=== PATIENT | male | born 1945 | race Caucasian/White ===

== ENCOUNTER → 2019-05-19 11:10 | Outpatient (CLI) | payer MEDICARE, SELFPAY ==
--- NOTE | ~2019-05-19 | MR_ITS ---
EXAMINATION: MR lumbar spine wo con DATE: 05/19/2019 11:46 INDICATION: Lumbar radiculopathy. TECHNIQUE: Magnetic resonance imaging (MRI) of the lumbar spine was performed without intravenous con trast. Sequences included sagittal T2-weighted FSE, sagittal T2-weighted FS FSE, sagittal T1-weighted FSE, and axial T2-weighted FSE. COMPARISON: Lumbar spine radiographs 01/26/2016 FINDINGS: There is 8 degrees levocurvature of lumbar spine. There is 3 mm anterolisthesis of L4 on L5 . There is a chronic burst fracture of T12 with greater than 4/5 loss of height centrally, focal kyph osis, and retropulsion of bone 2 mm into central spinal canal. There is mildly decreased disc height at L1-L2 and moderately decreased disc height at L4-L5 and L5-S1. The distal spinal cord signal inten sity is normal. The conus medullaris is at T12-L1. The following disc levels are specifically discuss ed: L1-L2: The disc is bulging. There is no facet joint osteoarthritis. There is mild bilateral neural fo raminal stenosis. There is no central canal stenosis. L2-L3: The disc is bulging. There is mild right and moderate left facet joint osteoarthritis. There i s mild bilateral neural foraminal stenosis. There is no central canal stenosis. L3-L4: The disc does not extend beyond the endplate margin. There is mild bilateral facet joint osteo arthritis. There is no neural foraminal stenosis. There is no central canal stenosis. L4-L5: The disc is bulging and has an annular fissure. There is severe bilateral facet joint osteoart hritis. There is moderate bilateral neural foraminal stenosis. There is moderate central canal stenos is with posterior decompression. L5-S1: The disc is bulging and has an annular fissure. There is severe bilateral facet joint osteoart hritis. There is moderate right and mild left neural foraminal stenosis. There is moderate central ca nal stenosis with posterior decompression. IMPRESSION: 1. Moderate lumbar spondylosis. Reviewed, dictated and finalized at location A. REPLACEMENT ORDERER
== END ==
PROVIDERS: Visit Provider Nurse Practitioner Family
DX: M47.26 Other spondylosis with radiculopathy, lumbar region (principal)
CPT/HCPCS: 72148

== ENCOUNTER 2019-08-17 15:29 | Outpatient (CLI) | payer MEDICARE, SELFPAY ==
--- NOTE | ~2019-08-17 | XR_ITS ---
XR shoulder RT min 2V DATE: 08/17/2019 15:53 INDICATION: Primary osteoarthritis of right shoulder. Right shoulder pain. TECHNIQUE: 4 views COMPARISON: 06/28/2008 right shoulder FINDINGS: There is degenerative change at the right acromioclavicular joint including spurring and richard int space narrowing. There is mild osteoarthritis at the right glenohumeral joint including mild spur ring of the right humeral head. No fracture or dislocation, periosteal reaction or bone destruction. No abnormal right shoulder soft tissue calcification. IMPRESSION: Degenerative change at right acromion clavicular joint Mild right glenohumeral osteoarthritis Reviewed, dictated and finalized at location A.
== END 2019-08-17 15:30 | disposition home or self-care (01) ==
PROVIDERS: PCP Internal Medicine; Visit Provider Internal Medicine
DX: M19.011 Primary osteoarthritis, right shoulder (principal)
CPT/HCPCS: 73030

== ENCOUNTER 2019-09-07 09:41 | Outpatient (CLI) | payer MEDICARE, SELFPAY ==
--- NOTE | 2019-09-07 10:22 | ECG_ITS ---
Measurements Intervals [place] Rate: 79 P: 20 UT: 194 QRS: 27 QRSD: 107 T: 11 QT: 412 QTc: 474 Interpretive Statements SINUS RHYTHM FREQUENT VENTRICULAR PREMATURE COMPLEXES BORDERLINE ST-T WAVE ABNORMALITY- INFERIOR LEADS ABNORMAL ECG Electronically Signed On 09-07-2019 10:48:01 CDT by Parviz Fox D.O.
== END 2019-09-07 09:42 | disposition home or self-care (01) ==
LOC: ANHLAB 09:44 → ANHCARD 09:46
PROVIDERS: PCP Internal Medicine; Visit Provider Internal Medicine
DX: I25.10 Atherosclerotic heart disease of native coronary artery without angina pectoris (principal); R94.31 Abnormal electrocardiogram [ECG] [EKG]
CPT/HCPCS: 93005

== ENCOUNTER 2019-11-30 13:55 | Emergency (ER) | payer MEDICARE, SELFPAY ==
[2019-11-30] VITALS (17 sets, daily range): BP systolic 113–134; BP diastolic 63–82; PULSE 58–77; RESP 16–28; TEMP 36.5; O2SAT 90–97
--- NOTE | ~2019-11-30 | XR_ITS ---
EXAMINATION: XR chest 2V DATE: 11/30/2019 14:34 INDICATION: Shortness of breath. TECHNIQUE: Frontal and lateral views of the chest were obtained. COMPARISON: Chest 2 views 03/25/2013, chest CT 11/16/2018 FINDINGS: The lung volumes are normal. A calcified right lung nodule is consistent with old granuloma tous disease. There are chronic mild peripheral airspace opacities in the mid and lower lung zones. N o pleural effusion or pneumothorax. The heart size is normal. There is a chronic burst fracture of T1 2. IMPRESSION: 1. Mild chronic lung disease. Reviewed, dictated and finalized at location A.
--- NOTE | ~2019-11-30 | CT_ITS ---
EXAMINATION: CTA chest PE protocol DATE: 11/30/2019 15:56 INDICATION: Pulmonary embolism, shortness of breath and chest pain TECHNIQUE: Computed tomography (CT) pulmonary angiogram of the chest was performed with 100 mL Omnipa que-350 intravenous contrast. Additional 3D reconstructions utilizing coronal maximum intensity proje ction (MIP) were performed. Automated exposure control and iterative reconstruction technique were em ployed. The dose-length product was 799.40 mGy-cm. COMPARISON: None FINDINGS: Excellent contrast opacification of the pulmonary arteries. There is mild streak artifact from dense contrast in the superior vena cava and right atrium. Minimal scattered respiratory motion artifact wh ich does not significantly limit evaluation. No pulmonary embolism. Larger calcified nodule in the ri ght lower lobe consistent with old granulomatous disease. Multiple additional scattered <4 mm pulmona ry nodules, the majority of the upper lobes. Peripheral groundglass opacities and irregular septal li ne thickening, along the dependent aspect of the bilateral upper and lower lobes. There are some nonc alcified pleural plaques at the posterior aspect of the left lower lobe. No pleural effusion. Heart s ize is normal. Atherosclerotic coronary artery calcification. There is a small amount of gas at the r ight atrial appendage, right pulmonary outflow tract and at the nondependent sinus of Valsalva at the aortic root likely related to peripheral IV placement. No pathologically enlarged thoracic lymphaden opathy. Fusiform ascending thoracic aortic aneurysm measuring up to 4.5 cm in maximal diameter. No di ssection. Diffuse hepatic steatosis. Chronic T12 burst fracture with 80% central vertebral body heigh t loss and minimal retropulsion. IMPRESSION: 1. No pulmonary embolism. 2. Peripheral reticular and mild groundglass opacities in the dependent aspect of the lungs. Differen tial includes mild pulmonary edema, atelectasis, nonspecific interstitial pneumonia (NSIP) pattern ch ronic interstitial lung disease or asbestosis in the appropriate clinical setting. 3. Multiple <4 mm bilateral pulmonary nodules most likely infectious/inflammatory in etiology. If the patient is low risk for lung cancer, no follow-up is needed. If the patient is high risk (i.e., hist ory of smoking or asbestos or significant radiation exposure), optional follow-up low-dose noncontras t chest CT could be considered at 12 months. 4. 4.5 cm ascending thoracic aortic aneurysm. Reviewed, dictated and finalized at location B. IMPRESSION: 1. No pulmonary embolism. 2. Peripheral reticular and mild groundglass opacities in the dependent aspect of the lungs. Differential includes mild pulmonary edema, atelectasis, nonspeci fic interstitial pneumonia (NSIP) pattern chronic interstitial lung disease or asbestosis in the appropriate clinical setting. 3. Multiple <4 mm bilateral pulmonary nodules most likely infectious/inflammato ry in etiology. If the patient is low risk for lung cancer, no follow-up is nee ded. If the patient is high risk (i.e., history of smoking or asbestos or signi ficant radiation exposure), optional follow-up low-dose noncontrast chest CT co uld be considered at 12 months. 4. 4.5 cm ascending thoracic aortic aneurysm.
--- NOTE | 2019-11-30 14:14 | ECG_ITS ---
Measurements Intervals [place] Rate: 60 P: 30 DE: 200 QRS: 19 QRSD: 109 T: 9 QT: 429 QTc: 429 Interpretive Statements SINUS RHYTHM VENTRICULAR PREMATURE COMPLEXES BORDERLINE ECG Electronically Signed On 11-30-2019 15:16:00 CDT by Parviz Fox D.O.
[2019-11-30 14:36] LABS: Basophils Percent Auto 0.4 % (0.2-1.2); Eosinophils Absolute Auto 0.1 K/mm3 (0-0.3); Eosinophils Percent Auto 1.1 % (0-4.4); Hematocrit 39.9 % (42.0-52.0); Hemoglobin 13.7 g/dL (14.0-18.0); Immature Granulocyte Absolute 0.04 K/mm3 (0.00-0.031); Immature Granulocyte Percent A 0.7 % (0-0.5); Lymphocytes Absolute Auto 2.28 K/mm3 (0.9-3.2); Lymphocytes Percent Auto 40.3 % (18.3-44.2); Mean Corpuscular HGB Conc 34.3 g/dl (32-36); Mean Corpuscular Hemoglobin 30.6 pg (26-34); Mean Corpuscular Volume 89.3 fl (80-100); Mean Platelet Volume 10.1 fl (7.4-10.4); Monocytes Absolute Auto 0.5 K/mm3 (0.1-0.6); Neutrophils Absolute Auto 2.8 K/mm3 (1.3-6.7); Neutrophils Percent Auto 48.5 % (45.5-73.1); Platelet Count Result 206 k/mm3 (150-375); Red Blood Count 4.47 M/mm3 (4.6-6.20); Red Cell Distribution Width 12.7 % (11.5-14.5); White Blood Count 5.7 K/mm3 (4.5-10.0)
[2019-11-30 14:45] LABS: Anion Gap 8 mmol/L (8-16); Blood Urea Nitrogen 22 mg/dL (9-20); Calcium 9.1 mg/dL (8.4-10.2); Carbon Dioxide 26 mmol/L (22-30); Chloride 104 mmol/L (98-107); Estimated CRCL calculation 68 ml/min; Estimated Glomerular Filt Rate > 60; Glucose 83 mg/dL (75-110); Sodium 138 mmol/L (137-145)
--- NOTE | 2019-11-30 14:45 | ED.GENADULT ---
HPI - General Adult General Chief complaint: Shortness of Breath/Dyspnea Stated complaint: sob/sent by pmd Time Seen by Provider: 11/30/19 14:43 Source: patient Mode of arrival: ambulatory Limitations: no limitations History of Present Illness HPI narrative: 74 years old white female history of COPD emphysema and asthma been having shortness of breath for years, is getting worse over the last 3 months. Patient was started on RINVOQ medication for rheumatoid arthritis for the last 8 to 12 months. 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 And the doctor asked the patient if he had shortness of breath or not .beCause the medication RINVOQ can cause pulmonary embolism. And was referred to the emergency room without. Patient denies any fever, chills, nausea, vomiting, chest pain, coughing, swelling of the legs or trouble sleeping Related Data Home Medications Medication Instructions Recorded Confirmed azelastine 1 spray INTRANASAL Q12H 01/14/19 08/17/19 aripiprazole 2 mg tablet 2 mg PO DAILY 08/24/19 08/24/19 Allergies Allergy/AdvReac Type Severity Reaction Status Date / Time No Known Allergies Allergy Verified 11/30/19 14:12 Review of Systems Review of Systems: Narrative: CONSTITUTIONAL: Denies fever, chills, or sweats. EYES: Denies visual changes, redness, or discharge. ENT: Denies rhinorrhea, congestion, sore throat, or otalgia. CARDIOVASCULAR: Denies chest pain, palpitations, or edema. RESPIRATORY: Denies cough or dyspnea. GASTROINTESTINAL: Denies abdominal pain, nausea, vomiting, or diarrhea. GENITOURINARY: Denies dysuria or hematuria. SKIN: Denies rash or itching. MUSCULOSKELETAL: Denies back pain, joint pain, or myalgia. NEUROLOGIC: Denies headache, numbness, or weakness. PSYCHIATRIC: Denies anxiety or depression. [facility] Past Medical History Medical History Abnormal stress test Acromioclavicular arthrosis Anxiety disorder, unspecified Blood in stool Body mass index (BMI) 35.0-35.9, adult (12/17/18) CAD in [place] artery Chest pain in adult Counseling on health promotion and disease prevention Dependence on other enabling machines and devices Depression Detached retina Dietary counseling and surveillance (08/25/15) Dyslipidemia Encounter for medication management Encounter for other preprocedural examination Encounter for screening for other viral diseases Gastro-esophageal reflux disease without esophagitis Generalized osteoarthritis of multiple sites Hernia Hx of prostatic malignancy Hypertriglyceridemia Irregular heart rhythm Left sided sciatica Low back pain without sciatica Lumbar radiculitis Malignant neoplasm involving prostate by direct extension from urinary bladder Obesity (BMI 35.0-39.9 without comorbidity) Odynophagia Osteoarthritis involving multiple joints on both sides of body Osteopenia Other fatigue Other hyperlipidemia Pain in unspecified limb Pain of both sacroiliac joints Prostate cancer Pure hypercholesterolemia, unspecified Rash and other nonspecific skin eruption Rheumatoid arthritis of multiple sites without rheumatoid factor Rheumatoid arthritis of unspecified site with involvement of other organs and systems Right hip pain Skin tag SOB (shortness of breath) Tinea corporis Surgical History Surgical History H/O radical prostatectomy History of arthroscopy of left shoulder History of bilateral knee replacement Family History Family History Father Family history of obesity Family history of throat cancer Patient's father is Family history of Alzheimer's disease Mother Asthma Patient's mother is Sibling Diabetes mellitus Family history of sleep apnea Family history of diabetes mellitus in first degree relative Family history of lung cancer P
[2019-11-30 14:59] LABS: Alveolar/Arterial O2 Gradient 34.5 mmHg; Base Excess ABG 0.3 mEq/l (+/-2.0); Fractional Inspired Oxygen 21 %; HCO3 ABG 25.2 mEq/l (22.0-26.0); Oxygen Content ABG 18.1 %vol (16.0-22.0); Oxygen Saturation ABG 92.8 % (95.0-100.0); Oxyhemoglobin 91.5 % THb (90.0-100.0); PCO2 ABG 41.7 mmHg (35.0-45.0); PO2 ABG 65.3 mmHg (80.0-100.0); PO2 FiO2 Ratio Arterial Blood 3.11 %; Total Hemoglobin 14.1 g/dL (12.0-18.0); pH ABG 7.399 (7.350-7.450)
[2019-11-30 15:00] LABS: Device ROOM AIR; Modified Allen's Test Pass; Site Drawn RIGHT RADIAL
[2019-11-30 15:11] LABS: NT Pro B Type Natriuretic Pept 112 PG/ML (5-100); Troponin I < 0.012 ng/mL (0.000-0.034)
[2019-11-30 15:12] LABS: D Dimer 0.27 ug/mL (<0.48)
== END 2019-11-30 17:33 | disposition home or self-care (01) ==
PROVIDERS: Emergency Provider Emergency Medicine; PCP Internal Medicine
DX: I71.2 Thoracic aortic aneurysm, without rupture (principal); R91.8 Other nonspecific abnormal finding of lung field; J43.9 Emphysema, unspecified; J45.909 Unspecified asthma, uncomplicated; I49.3 Ventricular premature depolarization
CPT/HCPCS: 36415; 36600; 71046; 71275; 80048; 82805; 83880; 84484; 85025; 85380; 93005; 99284; Q9967

== ENCOUNTER 2020-02-11 07:21 | Outpatient (CLI) | payer MEDICARE, SELFPAY ==
--- NOTE | 2020-02-11 07:38 | ECHO_ITS ---
Patient Info Name: Mikael Hall Age: 74 years : 1945 Gender: Male Ht: 71 in Wt: 268 lbs BSA: 2.51 m2 HR: 83 bpm BP: 155 / 82 mmHg Technical Quality: Fair Exam Date: 02/11/2020 7:48 AM Exam Location: [facility] Pulmonary Patient Status: Outpatient Admit Date: 02/11/2020 Staff Ordering Physician: Afsaneh Ventura MD [employer] Operator: Flavia Fontenot RDCS Attending Provider: Afsaneh Ventura MD Referring Physician: Lorenzo FIGUEROA; Exam Type: CA echo doppler color flow Study Info Indications R06.02 - Shortness of breath Complete two-dimensional, color flow and Doppler transthoracic echocardiogram is performed. Summary 1. Complete two-dimensional, color flow and Doppler transthoracic echocardiogram is performed. 2. Left ventricular chamber dimension is normal. 3. Left ventricular systolic function is normal, estimated at 55-60%. 4. There is mildly increased left ventricular wall thickness. 5. The left ventricular diastolic function is grade I diastolic dysfunction. 6. E/e' 8 is minimally elevated. 7. Global longitudinal strain is abnormal at -14.2%. 8. The aortic root size at the sinus of Valsalva is mildly dilated at 4.3 cm. Left Ventricle E/e' 8 is minimally elevated. Global longitudinal strain is abnormal at -14.2%. Left ventricular chamber dimension is normal. Left ventricular systolic function is normal, estimated at 55-60%. There is mildly increased left ventricular wall thickness. The left ventricular diastolic function is grade I diastolic dysfunction. Right Ventricle Right ventricular chamber dimension is normal. Right ventricular systolic function is normal. Left Atria Left atrial chamber dimension is normal. Right Atria Right atrial chamber dimension is normal. Aortic Valve The aortic valve is trileaflet. There is no aortic valve stenosis. There is no aortic valve regurgitation. Pulmonic Valve There is no pulmonic regurgitation. Mitral Valve There is no mitral valve regurgitation. Tricuspid Valve There is no tricuspid valve regurgitation. Pericardium/Pleural There is no pericardial effusion. Inferior Vena Cava Normal inferior vena cava with >50% collapse upon inspiration consistent with normal right atrial pressure, 5 mmHg. Aorta The aortic root size at the sinus of Valsalva is mildly dilated at 4.3 cm. Left Ventricular Outflow Tract Name Value Normal LVOT 2D LVOT Diameter 2.0 cm LVOT Doppler LVOT Peak Gradient 4 mmHg LVOT Mean Gradient 3 mmHg LVOT VTI 22 cm LVOT VTI/AV VTI Ratio 1.1 LVOT Stroke Volume 71 ml LVOT CO 5.1 l/min LVOT CI 2.0 l/min/m2 Pulmonic Valve Name Value Normal RVOT Doppler
--- NOTE | 2020-02-14 17:18 | WPDPFTINT ---
PFT Interpretation PFT Interpretation: DOS: 02/11/2020 REQUESTING: Dr Ventura REASON FOR TESTING: Shortness of breath, COPD PULMONARY FUNCTION TESTS The patient restarted Trelegy a week prior to these tests. He c/o clear angiitis which was present before restarting his Trelegy. Spirometry: FEV1 is 84%, 2.41 L, normal. FVC is 82% normal. The FEV1/FVC ratio is 67%, normal for age. ELI56-72 is 47% severely decreased. After bronchodilator therapy the FEF 25-75 increases by 24% which is significant. Lung volumes: TLC 100%, normal. Residual volume is 111% normal. RV/TLC is increased 45% consistent with air trapping. There is increased airway resistance, 300% predicted. Diffusion: DLCO is 71% mildly decreased. Flow volume loop: Scooping of the expiratory limb is mild. IMPRESSION: Normal spirometry with significant decrease in the small airways flows and a robust response in the small airways flows after bronchodilator administration. New mild air trapping which is consistent with an obstructive process. Increased airway resistance. There has been a significant drop in the DLCO and although it is only 71% which is mildly abnormal, just 2 years ago was 94%. Clinical correlation is recommended. Compared to a prior study 11/07/2017, FEV1 is lower, 84% now compared to 97%, still normal. The ROP17-11% was minimally decreased 79% in 2018, now much lower at 47% with a robust response to bronchodilator. TLC was similar, however mild air trapping is new. Airway resistance was elevated. DLCO was 94% now 71%, significantly decreased. Afsaneh Ventura MD
== END 2020-02-11 07:22 | disposition home or self-care (01) ==
PROVIDERS: PCP Nurse Practitioner Family; Visit Provider Internal Medicine Critical Care Medicine
DX: R06.02 Shortness of breath (principal); J44.9 Chronic obstructive pulmonary disease, unspecified; I51.9 Heart disease, unspecified; I77.810 Thoracic aortic ectasia
CPT/HCPCS: 93306; 94060; 94726; 94729

== ENCOUNTER 2020-06-19 06:56 | Outpatient (CLI) | payer MEDICARE, SELFPAY ==
--- NOTE | ~2020-06-19 | CT_ITS ---
EXAMINATION: CTA chest DATE: 06/19/2020 08:04 CDT INDICATION: Follow-up thoracic aortic aneurysm TECHNIQUE: Computed tomographic angiography (CTA) of the chest was performed with 100 mL Omnipaque-35 0 intravenous contrast. The dose-length product was 924.28 mGy-cm. Maximum intensity projection 3D-re constructions of the aorta and other arteries were constructed by the technologist on a separate work station. COMPARISON: CT dated 11/30/2019. FINDINGS: There is technically adequate contrast opacification of the pulmonary arteries without evid ence for pulmonary embolism. No evidence for thoracic aortic dissection. Stable ascending thoracic ao rtic aneurysm measuring 4.4 cm maximum dimension. No significant pleural or pericardial effusion. No thoracic lymphadenopathy. Shallow inspiration with crowding of the pulmonary vessels. Dependent atele ctasis. There are a few small 4 mm subpleural nodules which appear unchanged, although evaluation is somewhat limited due to hypoventilatory change. There is a chronic T12 burst fracture unchanged. IMPRESSION: 1. Stable ascending thoracic aortic aneurysm measuring 4.5 cm. 2: Stable bilateral pulmonary nodules measuring 4 mm or less, likely benign. Follow-up low dose CT ch est in 12 months recommended. Reviewed, dictated and finalized at location A. IMPRESSION: 1. Stable ascending thoracic aortic aneurysm measuring 4.5 cm. 2: Stable bilateral pulmonary nodules measuring 4 mm or less, likely benign. Fo llow-up low dose CT chest in 12 months recommended.
[2020-06-19 07:40] LABS: Estimated Glomerular Filt Rate 59
== END 2020-06-19 06:57 | disposition home or self-care (01) ==
PROVIDERS: PCP Nurse Practitioner Family; Visit Provider Internal Medicine Cardiovascular Disease
DX: I71.2 Thoracic aortic aneurysm, without rupture (principal); R91.8 Other nonspecific abnormal finding of lung field
CPT/HCPCS: 71275; Q9967

== ENCOUNTER 2020-08-10 17:37 | Emergency (ER) | payer MEDICARE, SELFPAY ==
--- NOTE | ~2020-08-10 | XR_ITS ---
EXAMINATION: XR chest 2V EXAM DATE: 08/10/2020 18:48 INDICATION: Shortness of breath, symptoms a month. TECHNIQUE: Frontal and lateral projections of the chest obtained and reviewed. Comparison is made to prior examination from 11/30/2019. FINDINGS: Several calcified lung granulomas. The lungs are otherwise clear. There are no pleural ef fusions. The cardiomediastinal silhouette is within normal limits. There is no pneumothorax suspect ed. The bones and soft tissues are unremarkable. IMPRESSION: No acute cardiopulmonary findings. Reviewed, dictated and finalized at location A.
--- NOTE | 2020-08-10 17:40 | ECG_ITS ---
Measurements Intervals [place] Rate: 68 P: 89 UT: 201 QRS: 15 QRSD: 106 T: 9 QT: 406 QTc: 434 Interpretive Statements SINUS RHYTHM FREQUENT VENTRICULAR PREMATURE COMPLEXES BORDERLINE AV CONDUCTION DELAY BORDERLINE T WAVE ABNORMALITY- INFERIOR LEADS BASELINE WANDER- V6 ABNORMAL ECG Electronically Signed On 08-10-2020 19:36:52 CDT by Parviz Fox D.O.
[2020-08-10 17:41] VITALS: BP 154/79; PULSE 69; RESP 18; TEMP 36.3; O2SAT 98
[2020-08-10 17:55] LABS: Basophils Percent Auto 0.2 % (0.2-1.2); Eosinophils Absolute Auto 0.1 K/mm3 (0-0.3); Eosinophils Percent Auto 2.8 % (0-4.4); Hematocrit 42.6 % (42.0-52.0); Hemoglobin 14.5 g/dL (14.0-18.0); Immature Granulocyte Absolute 0.05 K/mm3 (0.00-0.031); Immature Granulocyte Percent A 1.1 % (0-0.5); Lymphocytes Absolute Auto 2.36 K/mm3 (0.9-3.2); Lymphocytes Percent Auto 50.3 % (18.3-44.2); Mean Corpuscular Hemoglobin 31.3 pg (26-34); Mean Platelet Volume 9.8 fl (7.4-10.4); Monocytes Absolute Auto 0.6 K/mm3 (0.1-0.6); Monocytes Percent Auto 11.9 % (2.6-8.5); Neutrophils Absolute Auto 1.6 K/mm3 (1.3-6.7); Neutrophils Percent Auto 33.7 % (45.5-73.1); Platelet Count Result 213 k/mm3 (150-375); Red Blood Count 4.63 M/mm3 (4.6-6.20); Red Cell Distribution Width 12.6 % (11.5-14.5); White Blood Count 4.7 K/mm3 (4.5-10.0)
[2020-08-10 18:06] LABS: Anion Gap 4 mmol/L (8-16); Blood Urea Nitrogen 23 mg/dL (9-20); Calcium 9.1 mg/dL (8.4-10.2); Carbon Dioxide 31 mmol/L (22-30); Chloride 106 mmol/L (98-107); Estimated CRCL calculation 68 ml/min; Estimated Glomerular Filt Rate > 60; Glucose 91 mg/dL (75-110); Potassium 3.9 mmol/L (3.4-5.0); Sodium 141 mmol/L (137-145)
[2020-08-10 20:10] VITALS: BP 178/114; PULSE 60; RESP 19; O2SAT 97
[2020-08-10 20:13] VITALS: BP 178/114; PULSE 70; RESP 20; TEMP 36.8; O2SAT 100
[2020-08-10 20:29] VITALS: PULSE 62; RESP 20
[2020-08-10] MEDS: IPRATROPIUM BR 0.02% INH SOLN 0.5 MG/2.5 ML VIAL INHALATION (20:31)
[2020-08-10] MEDS: ALBUTEROL SULFATE NEB 2.5 MG/0.5 ML INH 5 MG INHALATION (20:31)
[2020-08-10 20:45] LABS: Alanine Aminotransferase 34 U/L (4-50); Albumin Level 4.3 g/dL (3.5-5.1); Alkaline Phosphatase 65 U/L (38-126); Aspartate Amino Transferase 38 U/L (17-59); Bilirubin,Total 0.3 mg/dL (0.2-1.3)
[2020-08-10] MEDS: methylPREDNISolone SOD SUCC 125 MG VIAL IV PUSH (20:45)
[2020-08-10 20:47] VITALS: BP 148/95; PULSE 63; RESP 20; O2SAT 95
[2020-08-10 20:58] LABS: Troponin I < 0.012 ng/mL (0.000-0.034)
[2020-08-10 21:05] LABS: NT Pro B Type Natriuretic Pept 87 pg/mL (5-100)
--- NOTE | 2020-08-10 21:10 | ED.GENADULT ---
HPI - General Adult General Chief complaint: Shortness of Breath/Dyspnea Stated complaint: CHRONIC SOB Time Seen by Provider: 08/10/20 20:13 History of Present Illness HPI narrative: Patient 75-year-old gentleman who presents the emergency department with chief complaint of shortness of breath. Patient reports he has history of COPD and was seen at urgent care and brought to the emergency department for further evaluation reported that they have felt like he probably needed some breathing treatments and some steroids. The patient states that he uses an albuterol inhaler at home reports that he had no fever no chills but does report that his shortness of breath has gotten worse over the last several days. Related Data Home Medications Medication Instructions Recorded Confirmed aripiprazole 2 mg tablet 2 mg PO DAILY 08/24/19 06/09/20 upadacitinib 15 mg tablet,extended 15 mg PO DAILY tablet 12/21/19 06/09/20 release 24 hr albuterol sulfate 90 mcg/actuation 1 puff INHALATION Q4H PRN 07/18/20 aerosol inhaler carboxymethylcellulose sodium 1 % 1 drp EACH EYE QID 07/18/20 eye liquid gel drops citalopram 40 mg tablet 20 mg PO DAILY tablet 07/18/20 clonazepam 0.5 mg tablet 0.5 mg PO DAILY 07/18/20 Allergies Allergy/AdvReac Type Severity Reaction Status Date / Time No Known Allergies Allergy Verified 07/18/20 11:26 Review of Systems Review of Systems: Narrative: A 10 system review of systems was completed on the patient and is negative except for what is stated in the HPI. Nursing and ancillary documentation was reviewed. [facility] Past Medical History Medical History Abnormal stress test Acromioclavicular arthrosis Anxiety disorder, unspecified Blood in stool Body mass index (BMI) 35.0-35.9, adult (12/17/18) CAD in [place] artery Chest pain in adult Counseling on health promotion and disease prevention Dependence on other enabling machines and devices Depression Detached retina Dietary counseling and surveillance (08/25/15) Dyslipidemia Encounter for medication management Encounter for other preprocedural examination Encounter for screening for other viral diseases Gastro-esophageal reflux disease without esophagitis Generalized osteoarthritis of multiple sites Hernia Hx of prostatic malignancy Hypertriglyceridemia ILD (interstitial lung disease) Irregular heart rhythm Left sided sciatica Low back pain without sciatica Lumbar radiculitis Malignant neoplasm involving prostate by direct extension from urinary bladder Multiple pulmonary nodules determined by computed tomography of lung Obesity (BMI 35.0-39.9 without comorbidity) Odynophagia Osteoarthritis involving multiple joints on both sides of body Osteopenia Other fatigue Other hyperlipidemia Pain in unspecified limb Pain of both sacroiliac joints Prostate cancer Pure hypercholesterolemia, unspecified Rash and other nonspecific skin eruption Rheumatoid arthritis of multiple sites without rheumatoid factor Rheumatoid arthritis of unspecified site with involvement of other organs and systems Right hip pain Skin tag SOB (shortness of breath) Tinea corporis Surgical History Surgical History H/O radical prostatectomy History of arthroscopy of left shoulder History of bilateral knee replacement Family History Family History Father Family history of obesity Family history of throat cancer Patient's father is Family history of Alzheimer's disease Mother Asthma Patient's mother is Sibling Diabetes mellitus Family history of sleep apnea Family history of diabetes mellitus in first degree relative Family history of lung cancer Patient's brother is Other Family history of arthritis Family history of
[2020-08-10 21:54] VITALS: BP 137/81; PULSE 72; RESP 18; TEMP 36.6; O2SAT 97
== END 2020-08-10 21:54 | disposition home or self-care (01) ==
PROVIDERS: Emergency Medicine; Emergency Provider Emergency Medicine; PCP Nurse Practitioner Family
DX: J44.9 Chronic obstructive pulmonary disease, unspecified (principal); I25.10 Atherosclerotic heart disease of native coronary artery without angina pectoris; E78.5 Hyperlipidemia, unspecified; E78.1 Pure hyperglyceridemia; M05.60 Rheumatoid arthritis of unspecified site with involvement of other organs and systems; M85.80 Other specified disorders of bone density and structure, unspecified site; M19.90 Unspecified osteoarthritis, unspecified site; K21.9 Gastro-esophageal reflux disease without esophagitis; F41.9 Anxiety disorder, unspecified; F32.9 Major depressive disorder, single episode, unspecified; E66.9 Obesity, unspecified; Z68.37 Body mass index [BMI] 37.0-37.9, adult; Z85.46 Personal history of malignant neoplasm of prostate; Z90.79 Acquired absence of other genital organ(s); Z96.653 Presence of artificial knee joint, bilateral; Z87.891 Personal history of nicotine dependence; R94.31 Abnormal electrocardiogram [ECG] [EKG]
CPT/HCPCS: 36415; 71046; 80048; 80076; 83880; 84484; 85025; 93005; 94640; 96374; 99284; J2930

== ENCOUNTER 2020-12-22 12:12 | Observation (INO) | payer MEDICARE, SELFPAY ==
--- NOTE | ~2020-12-22 | CT_ITS ---
EXAMINATION: CT abdomen pelvis w con DATE: 12/22/2020 14:04 INDICATION: Abdominal pain and constipation. TECHNIQUE: Computed tomography (CT) of the abdomen and pelvis was performed with 100 mL Omnipaque 350 intravenous contrast. Automated exposure control and iterative reconstruction technique were employe d. The dose-length product was 1432.55 mGy-cm. COMPARISON: CT abdomen and pelvis 05/10/2005 FINDINGS: The visualized portions of the lung bases demonstrate mild atelectasis. No pleural effusion . The liver, gallbladder, spleen, pancreas, and adrenal glands are normal. There is cortical thinning of the kidneys. There is a 10 mm cyst in left kidney. There are scattered diverticula in the colon. There is fat stranding around a diverticulum of sigmoid colon with local bowel wall thickening, consi stent with diverticulitis. There are no dilated loops of bowel. The appendix is not visualized and li priti absent. There are no pathologically enlarged lymph nodes. There is no free intraperitoneal fluid . There is severe lower lumbar spondylosis. There is a chronic compression fracture of T12. IMPRESSION: 1. Acute sigmoid diverticulitis. No perforation or abscess. Reviewed, dictated and finalized at location A.
[2020-12-22 12:47] VITALS: BP 142/60; PULSE 79; RESP 16; TEMP 36.8; O2SAT 96
[2020-12-22 13:00] LABS: Basophils Percent Auto 0.1 % (0.2-1.2); Eosinophils Percent Auto 0.5 % (0-4.4); Hematocrit 46.8 % (42.0-52.0); Hemoglobin 16.2 g/dL (14.0-18.0); Immature Granulocyte Absolute 0.03 K/mm3 (0.00-0.031); Immature Granulocyte Percent A 0.4 % (0-0.5); Lymphocytes Absolute Auto 0.97 K/mm3 (0.9-3.2); Lymphocytes Percent Auto 12.5 % (18.3-44.2); Mean Corpuscular HGB Conc 34.6 g/dl (32-36); Mean Corpuscular Hemoglobin 31.5 pg (26-34); Mean Corpuscular Volume 91.1 fl (80-100); Mean Platelet Volume 9.6 fl (7.4-10.4); Monocytes Absolute Auto 0.8 K/mm3 (0.1-0.6); Monocytes Percent Auto 10.5 % (2.6-8.5); Neutrophils Absolute Auto 5.9 K/mm3 (1.3-6.7); Platelet Count Result 186 k/mm3 (150-375); Red Blood Count 5.14 M/mm3 (4.6-6.20); Red Cell Distribution Width 12.2 % (11.5-14.5); White Blood Count 7.7 K/mm3 (4.5-10.0)
[2020-12-22 13:22] LABS: Alanine Aminotransferase 28 U/L (4-50); Albumin Level 4.7 g/dL (3.5-5.1); Alkaline Phosphatase 61 U/L (38-126); Anion Gap 9 mmol/L (8-16); Aspartate Amino Transferase 30 U/L (17-59); Bilirubin,Total 1.2 mg/dL (0.2-1.3); Blood Urea Nitrogen 19 mg/dL (9-20); Carbon Dioxide 27 mmol/L (22-30); Chloride 105 mmol/L (98-107); Estimated CRCL calculation 67 ml/min; Estimated Glomerular Filt Rate > 60; Glucose 110 mg/dL (65-110); Lipase 66 U/L (23-300); Potassium 4.1 mmol/L (3.4-5.0); Sodium 141 mmol/L (137-145)
[2020-12-22 13:37] VITALS: BP 144/97; PULSE 80; RESP 16; O2SAT 100
[2020-12-22 13:51] LABS: Add Urine Microscopic? YES; Appearance Urine Clear (Clear); Bacteria Urine Trace /hpf; Bilirubin Urine Negative (Negative); Blood Urine 1+ (Negative); Color Urine Amber (Yellow); Glucose Urine UA Negative (Negative); Ketones Urine Negative (Negative); Leukocyte Esterase Ur Negative LEU/UL (Negative); Mucus Urine Heavy /lpf; Nitrate Urine Negative (Negative); Protein Urine 1+ mg/dL (Negative); RBC Urine 0-2 /hpf (0-2); Urobilinogen Urine Negative mg/dL (<2.0); WBC Urine 0-3 /hpf
[2020-12-22 14:05] LABS: Specific Grav Ur 1.031 (1.001-1.035)
[2020-12-22] MEDS: KETOROLAC 15 MG/ML VIAL (*BKC) IV PUSH (14:58)
[2020-12-22 15:56] VITALS: BP 141/87; PULSE 80; RESP 17; O2SAT 100
[2020-12-22] MEDS: MORPHINE SULFATE (*CRX) 2 MG/ML INJ IV PUSH ×2 (16:57→21:48)
--- NOTE | 2020-12-22 17:31 | ED.GENADULT ---
HPI - General Adult General Chief complaint: Abdominal Pain <Elaina Haq PA-C - Last Filed: 12/22/20 17:36> Stated complaint: Abd Pain <Elaina Haq PA-C - Last Filed: 12/22/20 17:36> Time Seen by Provider: 12/22/20 13:42 <Elaina Haq PA-C - Last Filed: 12/22/20 17:36> Source: patient <CAROLINE Valenzuela Last Filed: 12/22/20 17:36> Mode of arrival: ambulatory <CAROLINE Valenzuela Last Filed: 12/22/20 17:36> Limitations: no limitations <CAROLINE Valenzuela Last Filed: 12/22/20 17:36> History of Present Illness HPI narrative: Patient presents from urgent care with chief complaint of upper abdominal pain over the past day. Patient states that he has not been able to eat or drink since yesterday due to the discomfort. Patient reports a history of diverticulitis. He states that he has felt warm but not documented any fevers. Patient denies any shortness of breath, chest pain. He states he has not vomited because he has not been eating. But he feels if he eats that he will vomit. Patient also reports some feelings of fatigue. <Elaina Haq PA-C - Last Filed: 12/22/20 17:36> Related Data Home medications: Home Medications Medication Instructions Recorded Confirmed upadacitinib 15 mg tablet,extended 15 mg PO DAILY tablet 12/21/19 11/28/20 release 24 hr carboxymethylcellulose sodium 1 % 1 drp EACH EYE QID 07/18/20 11/28/20 eye liquid gel drops aripiprazole 2 mg tablet 2 mg PO DAILY 11/28/20 11/28/20 citalopram 10 mg tablet 5 mg PO DAILY tablet 11/28/20 11/28/20 <CAROLINE Valenzuela Last Filed: 12/22/20 17:36> Allergies/adverse reactions: Allergies Allergy/AdvReac Type Severity Reaction Status Date / Time No Known Allergies Allergy Verified 12/06/20 11:24 <Elaina Haq PA-C - Last Filed: 12/22/20 17:36> Review of Systems Review of Systems: CONSTITUTIONAL: Denies fever, chills, or sweats. EYES: Denies visual changes, redness, or discharge. ENT: Denies rhinorrhea, congestion, sore throat, or otalgia. CARDIOVASCULAR: Denies chest pain, palpitations, or edema. RESPIRATORY: Denies cough or dyspnea. GASTROINTESTINAL: Reports abdominal pain, nausea, denies vomiting or diarrhea. GENITOURINARY: Denies dysuria or hematuria. SKIN: Denies rash or itching. MUSCULOSKELETAL: Denies back pain, joint pain, or myalgia. NEUROLOGIC: Denies headache, numbness, dizziness, or weakness. PSYCHIATRIC: Denies anxiety or depression. <Elaina Haq PA-C - Last Filed: 12/22/20 17:36> [facility] Past Medical History Medical History: Medical History Abnormal stress test Acromioclavicular arthrosis Anxiety disorder, unspecified Blood in stool Body mass index (BMI) 35.0-35.9, adult (12/17/18) CAD in [place] artery Chest pain in adult Counseling on health promotion and disease prevention Dependence on other enabling machines and devices Depression Detached retina Dietary counseling and surveillance (08/25/15) Dyslipidemia Encounter for medication management Encounter for other preprocedural examination Encounter for screening for other viral diseases Gastro-esophageal reflux disease without esophagitis Generalized osteoarthritis of multiple sites Hernia Hx of prostatic malignancy Hypertriglyceridemia ILD (interstitial lung disease) Irregular heart rhythm Left sided sciatica Low back pain without sciatica Lumbar radiculitis Malignant neoplasm involving prostate by direct extension from urinary bladder Multiple pulmonary nodules determined by computed tomography of lung Obesity (BMI 35.0-39.9 without comorbidity) Odynophagia Osteoarthritis involving multiple joints on both sides of body Osteopenia Other fatigue Other hyperlipidemia Pain in unspecified limb Pain of both sacroiliac joints Prostate cancer Pure hypercholesterolemia, unspecified Rash and other nonspecific skin eruption Rheumatoid
[2020-12-22 18:09] VITALS: BP 142/82; PULSE 78; RESP 18; O2SAT 100
[2020-12-22 18:50] VITALS: BP 139/82; PULSE 76; RESP 18; TEMP 36.2; O2SAT 96; BMI 36.5
--- NOTE | 2020-12-22 19:27 | ADMGEN ---
This patient, Mikael Hall, was admitted to 2 Medical Room 258-01 @1930. Patient/family oriented to hospital policies and general routines including ID bracelet, bed and alarms, visiting hours, pain management, procedures, bathroom and other care routines, personal items, smoking policy, room service/diet, and visiting hours. Information on how to activate the Rapid Response Team has been discussed. Patient/Family are encouraged to report perceived risks to care and to ask questions if they do not understand what they are told or what they should do.
[2020-12-22 20:19] VITALS: BP 129/77; PULSE 64; RESP 20; TEMP 36.2; O2SAT 94
--- NOTE | 2020-12-22 23:43 | PM.IMHP ---
H&P: HPI History of Present Illness Date/Time: 12/22/20 23:43 this is a 75-year-old male patient lives home alone. The patient went to the urgent care today with complaints of abdominal pain that is in the left lower quadrant as well as the upper quadrant. The patient stated that he has not eaten anything since yesterday at 11:00 a.m.. He has had severe discomfort. He does have a history of diverticulitis. The provider at the urgent care sent the patient to the emergency room due to the discomfort. The patient denied any fever chills or any shortness of breath or chest pain. The patient stated that he did not vomit anything. CT scan of the abdomen and pelvis was read as acute sigmoid diverticulitis. No perforation are abscess. The patient was started on Zosyn. He was also given IV Tylenol morphine and Toradol. The patient stated that the morphine is not helping to take the pain away. The patient is being admitted for observation status on the date of service of 12/22/2020. Chief Complaint: Abdominal pain Review of Systems Review of Systems: All systems reviewed & are unremarkable except as noted in HPI and below Constitutional: Constitutional: Reports as per HPI and Reports no additional constitutional complaints Eyes: Eyes: Reports as per HPI and Reports no additional eye complaints ENT: Reports system reviewed and no additional complaints, except as documented and Reports Normal hearing present Cardiovascular: Cardiovascular: Reports no additional cardiovascular complaints Respiratory: Respiratory: Reports no additional respiratory complaints and Reports no additional respiratory complaints Gastrointestinal: Gastrointestinal: Reports as per HPI and Reports no additional gastrointestinal complaints Musculoskeletal: Musculoskeletal: Reports no additional musculoskeletal complaints Integumentary/Breasts: Skin/Breast: Reports system reviewed and no additional complaints, except as docu and Reports as per HPI Neurologic: Reports system reviewed and no additional complaints, except as documented, Reports as per HPI and Reports Normal hearing present Psychiatric: Psychiatric: Reports no additional psychiatric complaints and Reports as per HPI Endocrine: Endocrine: Reports no additional endocrine complaints Hematologic/Lymphatic: Hematologic/Lymphatic: Reports no additional hematologic/lymphatic complaints Allergic/Immunologic: Allergic/Immunologic: Reports no additional allergic/immunologic complaints [facility] Past Medical History Medical History (Updated 12/22/20 @ 23:56 by Alexa Foster NP) Abnormal stress test Acromioclavicular arthrosis Anxiety disorder, unspecified Blood in stool Body mass index (BMI) 35.0-35.9, adult (12/17/18) CAD in [place] artery Chest pain in adult Counseling on health promotion and disease prevention Dependence on other enabling machines and devices Depression Detached retina Dietary counseling and surveillance (08/25/15) Dyslipidemia Encounter for medication management Encounter for other preprocedural examination Encounter for screening for other viral diseases Gastro-esophageal reflux disease without esophagitis Generalized osteoarthritis of multiple sites Hernia HTN (hypertension) with goal to be determined Hx of prostatic malignancy Hypertriglyceridemia ILD (interstitial lung disease) Irregular heart rhythm Left sided sciatica Low back pain without sciatica Lumbar radiculitis Malignant neoplasm involving prostate by direct extension from urinary bladder Multiple pulmonary nodules determined by computed tomography of lung Obesity (BMI 35.0-39.9 without comorbidity) Odynophagia Osteoarthritis involving multiple joints on both sides of body Osteopenia Other fatigue Other hyperlipidemia Pain in unspecified limb Pain of both sacroiliac joints Prostate cancer Pure hypercholesterolemia, unspecified Rash and other nonspecific skin eruption Rheumatoid arthritis of multiple sites without rheu
[2020-12-23 05:22] VITALS: BP 118/64; PULSE 61; RESP 22; TEMP 36.5; O2SAT 95
[2020-12-23 05:48] LABS: Basophils Percent Auto 0.3 % (0.2-1.2); Eosinophils Percent Auto 0.6 % (0-4.4); Hematocrit 43.2 % (42.0-52.0); Hemoglobin 15.2 g/dL (14.0-18.0); Immature Granulocyte Absolute 0.03 K/mm3 (0.00-0.031); Immature Granulocyte Percent A 0.4 % (0-0.5); Lymphocytes Absolute Auto 0.97 K/mm3 (0.9-3.2); Lymphocytes Percent Auto 14.3 % (18.3-44.2); Mean Corpuscular HGB Conc 35.2 g/dl (32-36); Mean Corpuscular Hemoglobin 31.4 pg (26-34); Mean Corpuscular Volume 89.3 fl (80-100); Mean Platelet Volume 9.9 fl (7.4-10.4); Monocytes Absolute Auto 0.8 K/mm3 (0.1-0.6); Monocytes Percent Auto 11.1 % (2.6-8.5); Neutrophils Percent Auto 73.3 % (45.5-73.1); Platelet Count Result 173 k/mm3 (150-375); Red Blood Count 4.84 M/mm3 (4.6-6.20); Red Cell Distribution Width 12.2 % (11.5-14.5); White Blood Count 6.8 K/mm3 (4.5-10.0)
[2020-12-23] MEDS: HYDROcodone/acetaminophen (*CRX) 5-325 MG TABLET 1 TAB PO ×2 (06:05→12:17)
[2020-12-23 06:23] LABS: Alanine Aminotransferase 25 U/L (4-50); Albumin Level 4.1 g/dL (3.5-5.1); Alkaline Phosphatase 53 U/L (38-126); Anion Gap 9 mmol/L (8-16); Aspartate Amino Transferase 26 U/L (17-59); Bilirubin,Total 1.6 mg/dL (0.2-1.3); Blood Urea Nitrogen 20 mg/dL (9-20); Calcium 8.3 mg/dL (8.4-10.2); Carbon Dioxide 25 mmol/L (22-30); Chloride 104 mmol/L (98-107); Estimated CRCL calculation 62 ml/min; Estimated Glomerular Filt Rate 59; Glucose 112 mg/dL (65-110); Lactate Dehydrogenase 431 U/L (313-618); Lipase 44 U/L (23-300); Magnesium 1.9 mg/dL (1.6-2.3); Phosphorus 3.7 mg/dL (2.5-4.5); Potassium 3.7 mmol/L (3.4-5.0); Sodium 138 mmol/L (137-145)
[2020-12-23 08:21] VITALS: PULSE 97
[2020-12-23] MEDS: SERTRALINE HCL 50 MG TABLET PO (08:21)
[2020-12-23] MEDS: METOPROLOL SUCCINATE EXT REL 25 MG TABCR PO (08:21)
[2020-12-23] MEDS: ISOSORBIDE MONONITRATE 10 MG TABLET PO (08:21)
[2020-12-23] MEDS: ASPIRIN 81 MG ENTERIC TABLET PO (08:21)
[2020-12-23] MEDS: OMEGA 3 POLYUNSAT FATTY ACIDS 1 GM CAP PO ×2 (08:22→17:26)
[2020-12-23] MEDS: GABAPENTIN 300 MG CAPSULE PO ×3 (08:22→17:26)
--- NOTE | 2020-12-23 09:38 | PM.IMPN ---
Progress Note: A&P Assessment and Plan (1) Diverticulitis of sigmoid colon: Code(s): K57.32 - Diverticulitis of large intestine without perforation or abscess without bleeding Status: Acute Assessment and Plan: The patient is on IV Zosyn. The patient stated that his pain was not managed with morphine. I changed him to clear liquids cc could tolerate that. And will continue with his medications. We will try oral pain medication with IV pain medication for higher pain rating. (2) Anxiety: Code(s): F41.9 - Anxiety disorder, unspecified Status: Acute Assessment and Plan: Continue with his home dose of clonazepam and sertraline (3) Dyslipidemia: Code(s): E78.5 - Hyperlipidemia, unspecified Status: Acute Assessment and Plan: Continue with patient's home medication. It looks like the patient is on [place] 3. (4) Sleep apnea: Code(s): G47.30 - Sleep apnea, unspecified Status: Acute Assessment and Plan: Patient stated that he does use a CPAP at home but he probably will need it for the next couple days here. However I did order 1 for him in the event that he changes his mind. (5) Uncomplicated asthma: Code(s): J45.909 - Unspecified asthma, uncomplicated Status: Acute Assessment and Plan: Continue with home inhalers. (6) HTN (hypertension) with goal to be determined: Code(s): I10 - Essential (primary) hypertension Status: Acute Assessment and Plan: Continue with isosorbide and metoprolol (7) ILD (interstitial lung disease): Code(s): J84.9 - Interstitial pulmonary disease, unspecified Status: Acute Assessment and Plan: Continue with inhalers. (8) Left sided sciatica: Code(s): M54.32 - Sciatica, left side Status: Acute Assessment and Plan: Continue with gabapentin. (9) CAD in [place] artery: Code(s): I25.10 - Atherosclerotic heart disease of [place] coronary artery without angina pectoris Status: Acute Assessment and Plan: Continue with home medication metoprolol and [place] 3. Continue with aspirin Additional Plan 12/23/20 no fever, WBCs WNLs on RA w stable VS on zosyn paijn control miralax c/s PT dc home vs SNF in am Time Spent With Patient Time with patient: 25 - 35 minutes Subjective Date/time seen: 12/23/20 09:38 pt doing ok complains of abd pain over L abd, he had BM today (hard balls of stool ) pt obese counseled to lose weight Exam Narrative: GEN: NAD, AAOx3, cooperative, obese HEENT: NCAT, MMM, EOMI Neck: no JVD Heart: S1S2 RRR Lungs: CTA B/l Abd: soft, TTP over LUQ and LLQ, ND, bowel sounds normoactive Ext: moves all, no cyanosis, no clubbing, no edema Neuro: CN intact, no focal neurological deficits Psych: mood and affect congruent Objective Data Vital Signs Vital Signs: Vital Signs - 24 hr 12/22/20 12:47 12/22/20 13:37 12/22/20 15:56 Temperature 98.2 F Pulse Rate 79 80 80 Respiratory Rate 16 16 17 Blood Pressure 142/60 H 144/97 H 141/87 H Pulse Oximetry 96 100 100 12/22/20 18:09 12/22/20 18:50 12/22/20 20:19 Temperature 97.1 F L 97.1 F L Pulse Rate 78 76 64 Respiratory Rate 18 18 20 Blood Pressure 142/82 H 139/82 129/77 Pulse Oximetry 100 96 94 12/23/20 05:22 12/23/20 08:21 Temperature 97.7 F Pulse Rate 61 97 Respiratory Rate 22 H Blood Pressure 118/64 Pulse Oximetry 95 Intake/Output Intake/Output: Intake & Output 12/20/20 12/21/20 12/22/20 12/23/20 23:59 23:59 23:59 23:59 Intake Total 150 490 Output Total 175 400 Balance -25 90 Meds/Results Medications: Active Medications Generic Name Dose Route Start Last Admin Trade Name Freq PRN Reason Stop Dose Admin Hydrocodone Bitart/Acetaminophen 1 tab 12/22/20 23:46 12/23/20 06:05 Hydrocodone/Acetaminophen (*Crx) 5-325 Mg Tablet PO 1 tab Q4H PRN Administration Pain Rated 4-6 Albuterol 1 puff 12/22/20 23:54
[2020-12-23 14:00] VITALS: BP 113/76; PULSE 62; RESP 20; TEMP 36.5; O2SAT 93
[2020-12-23 20:00] VITALS: PULSE 62; RESP 20; O2SAT 93
[2020-12-23 21:10] VITALS: BP 112/71; PULSE 61; RESP 16; TEMP 36.2; O2SAT 92
[2020-12-24 05:16] VITALS: BP 119/74; PULSE 73; RESP 16; TEMP 36.2; O2SAT 92
[2020-12-24] MEDS: ALENDRONATE SODIUM 70 MG TABLET PO ×2 (06:07→09:04)
[2020-12-24] MEDS: HYDROcodone/acetaminophen (*CRX) 5-325 MG TABLET 1 TAB PO (06:07)
[2020-12-24 09:03] VITALS: PULSE 66
[2020-12-24] MEDS: OMEGA 3 POLYUNSAT FATTY ACIDS 1 GM CAP PO (09:03)
[2020-12-24] MEDS: METOPROLOL SUCCINATE EXT REL 25 MG TABCR PO (09:03)
[2020-12-24] MEDS: GABAPENTIN 300 MG CAPSULE PO (09:03)
[2020-12-24] MEDS: ASPIRIN 81 MG ENTERIC TABLET PO (09:03)
[2020-12-24] MEDS: SERTRALINE HCL 50 MG TABLET PO (09:03)
[2020-12-24] MEDS: ISOSORBIDE MONONITRATE 10 MG TABLET PO (09:03)
--- NOTE | 2020-12-24 09:53 | PM.DS ---
DS: Admitting Diagnosis Discharge Date 12/24/20 Admitting Diagnosis (1) Diverticulitis of sigmoid colon: Code(s): K57.32 - Diverticulitis of large intestine without perforation or abscess without bleeding Status: Acute Assessment and Plan: The patient is on IV Zosyn. The patient stated that his pain was not managed with morphine. I changed him to clear liquids cc could tolerate that. And will continue with his medications. We will try oral pain medication with IV pain medication for higher pain rating. (2) Anxiety: Code(s): F41.9 - Anxiety disorder, unspecified Status: Acute Assessment and Plan: Continue with his home dose of clonazepam and sertraline (3) Dyslipidemia: Code(s): E78.5 - Hyperlipidemia, unspecified Status: Acute Assessment and Plan: Continue with patient's home medication. It looks like the patient is on Dix 3. (4) Sleep apnea: Code(s): G47.30 - Sleep apnea, unspecified Status: Acute Assessment and Plan: Patient stated that he does use a CPAP at home but he probably will need it for the next couple days here. However I did order 1 for him in the event that he changes his mind. (5) Uncomplicated asthma: Code(s): J45.909 - Unspecified asthma, uncomplicated Status: Acute Assessment and Plan: Continue with home inhalers. (6) HTN (hypertension) with goal to be determined: Code(s): I10 - Essential (primary) hypertension Status: Acute Assessment and Plan: Continue with isosorbide and metoprolol (7) ILD (interstitial lung disease): Code(s): J84.9 - Interstitial pulmonary disease, unspecified Status: Acute Assessment and Plan: Continue with inhalers. (8) Left sided sciatica: Code(s): M54.32 - Sciatica, left side Status: Acute Assessment and Plan: Continue with gabapentin. (9) CAD in [place] artery: Code(s): I25.10 - Atherosclerotic heart disease of [place] coronary artery without angina pectoris Status: Acute Assessment and Plan: Continue with home medication metoprolol and Dix 3. Continue with aspirin DS: Discharge Diagnosis Discharge Diagnosis (1) Obesity: Qualifiers: Body mass index: BMI 39.0-39.9 Obesity classification: adult class 2 (BMI 35 - 39.9) Obesity type: due to excess calories Serious obesity comorbidity presence: unspecified whether serious comorbidity present Qualified Code(s): E66.09 - Other obesity due to excess calories; Z68.39 - Body mass index [BMI] 39.0-39.9, adult Code(s): E66.9 - Obesity, unspecified Status: Acute (2) HTN (hypertension) with goal to be determined: Code(s): I10 - Essential (primary) hypertension Status: Acute (3) Diverticulitis of sigmoid colon: Code(s): K57.32 - Diverticulitis of large intestine without perforation or abscess without bleeding Status: Acute (4) Anxiety: Code(s): F41.9 - Anxiety disorder, unspecified Status: Acute (5) Social isolation: Code(s): Z60.4 - Social exclusion and rejection Status: Acute (6) ILD (interstitial lung disease): Code(s): J84.9 - Interstitial pulmonary disease, unspecified Status: Acute (7) Dyslipidemia: Code(s): E78.5 - Hyperlipidemia, unspecified Status: Acute (8) ZORA on CPAP: Code(s): G47.33 - Obstructive sleep apnea (adult) (pediatric); Z99.89 - Dependence on other enabling machines and devices Status: Acute (9) Uncomplicated asthma: Code(s): J45.909 - Unspecified asthma, uncomplicated Status: Acute (10) Rheumatoid arthritis, unspecified: Qualifiers: Rheumatoid arthritis location: multiple sites Rheumatoid factor presence: without rheumatoid factor Qualified Code(s): M06.09 - Rheumatoid arthritis without rheumatoid factor, multiple sites Code(s): M06.9 - Rheumatoid arthritis, unspecified Status: Acute (11
== END 2020-12-24 11:04 | disposition home or self-care (01) ==
LOC: ANHED 17:36 → ANH2MED 12-24 09:53
PROVIDERS: Emergency Medicine; Nurse Practitioner; Admitting Provider Internal Medicine; Emergency Provider Emergency Medicine; PCP Physician Assistant; Visit Provider Hospitalist
DX: K57.32 Diverticulitis of large intestine without perforation or abscess without bleeding (principal); F41.9 Anxiety disorder, unspecified; J45.909 Unspecified asthma, uncomplicated; I10 Essential (primary) hypertension; I25.10 Atherosclerotic heart disease of native coronary artery without angina pectoris; E78.5 Hyperlipidemia, unspecified; E66.9 Obesity, unspecified; G47.33 Obstructive sleep apnea (adult) (pediatric); J84.9 Interstitial pulmonary disease, unspecified; M54.32 Sciatica, left side; M06.9 Rheumatoid arthritis, unspecified; Z68.36 Body mass index [BMI] 36.0-36.9, adult; Z87.891 Personal history of nicotine dependence; Z79.899 Other long term (current) drug therapy; Z99.89 Dependence on other enabling machines and devices; Z96.653 Presence of artificial knee joint, bilateral; Z85.46 Personal history of malignant neoplasm of prostate
CPT/HCPCS: 36415; 74177; 80053; 81001; 82728; 83615; 83690; 83735; 84100; 84443; 85025; 96365; 96366; 96375; 96376; 97161; 97165; 99285; A9270; G0378; J0131; J1885; J2270; J2543; Q9967

== ENCOUNTER → 2021-03-19 11:01 | Outpatient (CLI) | payer MEDICARE, SELFPAY ==
--- NOTE | ~2021-03-19 | XR_ITS ---
XR hip RT min 2V DATE: 03/19/2021 11:20 INDICATION: Right hip TECHNIQUE: AP and lateral views of right hip COMPARISON: 12/18/2020 CT abdomen pelvis 10/29/2018 bilateral hips FINDINGS: Bilateral pelvic surgical clips are again noted. No fracture or dislocation, avascular necrosis or bone destruction of the right hip. The right hip richard int space appears well preserved. IMPRESSION: Bilateral pelvic postoperative change Negative right hip Reviewed, dictated and finalized at location B. 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
== END ==
PROVIDERS: PCP Physician Assistant; Visit Provider Nurse Practitioner Family
DX: M25.551 Pain in right hip (principal)
CPT/HCPCS: 73502

== ENCOUNTER → 2021-03-28 14:18 | Outpatient (CLI) | payer MEDICARE, SELFPAY ==
--- NOTE | ~2021-03-28 | MR_ITS ---
EXAMINATION: MR lumbar spine wo con DATE: 03/28/2021 14:58 INDICATION: Lumbar radiculopathy. TECHNIQUE: Magnetic resonance imaging (MRI) of the lumbar spine was performed without intravenous con trast. Sequences included sagittal T2-weighted FSE, sagittal T2-weighted FS FSE, sagittal T1-weighted FSE, and axial T2-weighted FSE. COMPARISON: Lumbar spine MRI 05/19/2019 FINDINGS: There is 7 degrees levocurvature of lumbar spine. There is a chronic burst fracture of T12 with focal mild kyphosis and retropulsion of bone 2 mm into central spinal canal. There is 2 mm retro listhesis of L1 on L2 and L3 on L4. There is 6 mm anterolisthesis of L4 on L5. There is mildly decrea sed disc height at L1-L2 and moderately decreased disc height at L4-L5 and L5-S1. The distal spinal c ord signal intensity is normal. The conus medullaris is at T12-L1. The following disc levels are spec ifically discussed: L1-L2: The disc is bulging. There is mild right facet joint osteoarthritis. There is mild bilateral n eural foraminal stenosis. There is no central canal stenosis. L2-L3: The disc is mildly bulging with superimposed right foraminal extrusion. There is mild right an d moderate left facet joint osteoarthritis. There is moderate and mild left neural foraminal stenosis . There is no central canal stenosis. L3-L4: The disc is mildly bulging. There is moderate bilateral facet joint osteoarthritis. There is m ild left neural foraminal stenosis. There is no central canal stenosis. L4-L5: The disc is bulging and has an annular fissure. There is severe bilateral facet joint osteoart hritis. There is moderate bilateral neural foraminal stenosis. There is mild central canal stenosis. There is moderate stenosis of right lateral recess. L5-S1: The disc is bulging and has an annular fissure. There is severe bilateral facet joint osteoart hritis. There is moderate right and mild left neural foraminal stenosis. There is mild central canal stenosis. There is moderate stenosis of the lateral recesses. IMPRESSION: 1. Moderate lumbar spondylosis, stable from 05/19/2019. Reviewed, dictated and finalized at location D. 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
== END ==
PROVIDERS: PCP Physician Assistant; Visit Provider Nurse Practitioner Family
DX: M54.16 Radiculopathy, lumbar region (principal); M47.816 Spondylosis without myelopathy or radiculopathy, lumbar region
CPT/HCPCS: 72148

== ENCOUNTER 2021-05-13 10:04 | Emergency (ER) | payer MEDICARE, SELFPAY ==
[2021-05-13] VITALS (10 sets, daily range): BP systolic 106–134; BP diastolic 56–120; PULSE 72–91; RESP 17–25; TEMP 37.2; O2SAT 90–96
--- NOTE | ~2021-05-13 | CT_ITS ---
EXAMINATION: CT brain wo con DATE: 05/13/2021 11:44 INDICATION: Head injury. Headache. TECHNIQUE: Computed tomography (CT) of the head was performed without intravenous contrast. The mA wa s adjusted according to patient size. Iterative reconstruction technique was employed. The dose-lengt h product was 605.33 mGy-cm. COMPARISON: None FINDINGS: There are scattered areas of low attenuation in the cerebral white matter. There is no intr acranial hemorrhage, acute infarction, or abnormal intracranial mass lesion. The ventricles are payton l in size. There are likely changes of ocular lens replacement surgeries. There is mild mucosal thick ening in the paranasal sinuses. The mastoid air cells are normal. IMPRESSION: 1. Extensive nonspecific cerebral white matter disease, which likely represents chronic small vessel ischemic disease. Reviewed, dictated and finalized at location A. STAPLER
--- NOTE | 2021-05-13 13:00 | ED.HA ---
HPI - Headache General Chief Complaint: Headache Stated Complaint: fall/head injury 2 weeks ago/no thinners Time Seen by Provider: 05/13/21 11:23 Source: patient Mode of arrival: ambulatory Limitations: no limitations History of Present Illness HPI Narrative: Patient complaining of diffuse headache mainly at the left side after a fall 2 weeks ago associated with intermittent nausea. Patient denies any fever, chills, or vomiting. Patient denies focal neuro deficit. Related Data Home Medications Medication Instructions Recorded Confirmed atorvastatin 20 mg tablet 20 mg PO DAILY 04/12/21 04/24/21 gabapentin 400 mg capsule 400 mg PO TID 04/13/21 04/24/21 Allergies Allergy/AdvReac Type Severity Reaction Status Date / Time No Known Allergies Allergy Verified 05/01/21 11:00 Review of Systems Review of Systems: CONSTITUTIONAL: Denies fever, chills, or sweats. EYES: Denies visual changes, redness, or discharge. ENT: Denies rhinorrhea, congestion, sore throat, or otalgia. CARDIOVASCULAR: Denies chest pain, palpitations, or edema. RESPIRATORY: Denies cough or dyspnea. GASTROINTESTINAL: Denies abdominal pain, nausea, vomiting, or diarrhea. GENITOURINARY: Denies dysuria or hematuria. SKIN: Denies rash or itching. MUSCULOSKELETAL: Denies back pain, joint pain, or myalgia. NEUROLOGIC: Denies headache, numbness, or weakness. PSYCHIATRIC: Denies anxiety or depression. [facility] Past Medical History Medical History Abnormal stress test Acromioclavicular arthrosis Anxiety disorder, unspecified Blood in stool Body mass index (BMI) 35.0-35.9, adult (12/17/18) CAD in [place] artery Chest pain in adult Counseling on health promotion and disease prevention Dependence on other enabling machines and devices Depression Detached retina Dietary counseling and surveillance (08/25/15) Dyslipidemia Encounter for medication management Encounter for other preprocedural examination Encounter for screening for other viral diseases Gastro-esophageal reflux disease without esophagitis Generalized osteoarthritis of multiple sites Hernia HTN (hypertension) with goal to be determined Hx of prostatic malignancy Hypertriglyceridemia ILD (interstitial lung disease) Irregular heart rhythm Left sided sciatica Low back pain without sciatica Lumbar radiculitis Malignant neoplasm involving prostate by direct extension from urinary bladder Multiple pulmonary nodules determined by computed tomography of lung Obesity (BMI 35.0-39.9 without comorbidity) Odynophagia Osteoarthritis involving multiple joints on both sides of body Osteopenia Other fatigue Other hyperlipidemia Pain in unspecified limb Pain of both sacroiliac joints Prostate cancer Pure hypercholesterolemia, unspecified Rash and other nonspecific skin eruption Rheumatoid arthritis of multiple sites without rheumatoid factor Rheumatoid arthritis of unspecified site with involvement of other organs and systems Right hip pain Skin tag SOB (shortness of breath) Tinea corporis Surgical History Surgical History H/O eye surgery Repair of detached retina H/O hernia repair X2 H/O radical prostatectomy History of arthroscopy of left shoulder History of back surgery History of bilateral knee replacement History of cataract extraction Family History Family History Father Family history of obesity Family history of throat cancer Patient's father is Family history of Alzheimer's disease Mother Asthma Patient's mother is Sibling Diabetes mellitus Family history of sleep apnea Family history of diabetes mellitus in first degree relative Family history of lung cancer Patient's brother is Other Family history of arthritis Family history of malignant neoplasm Social Histor
== END 2021-05-13 13:14 | disposition home or self-care (01) ==
PROVIDERS: Emergency Provider Emergency Medicine; PCP Physician Assistant
DX: G44.309 Post-traumatic headache, unspecified, not intractable (principal); F07.81 Postconcussional syndrome; I25.10 Atherosclerotic heart disease of native coronary artery without angina pectoris; E78.49 Other hyperlipidemia; I10 Essential (primary) hypertension; J84.9 Interstitial pulmonary disease, unspecified; E78.1 Pure hyperglyceridemia; K21.9 Gastro-esophageal reflux disease without esophagitis; M05.60 Rheumatoid arthritis of unspecified site with involvement of other organs and systems; M19.90 Unspecified osteoarthritis, unspecified site; M85.80 Other specified disorders of bone density and structure, unspecified site; F41.9 Anxiety disorder, unspecified; F32.A Depression, unspecified; E66.9 Obesity, unspecified; Z68.36 Body mass index [BMI] 36.0-36.9, adult; Z85.46 Personal history of malignant neoplasm of prostate; Z90.79 Acquired absence of other genital organ(s); Z98.49 Cataract extraction status, unspecified eye; Z96.653 Presence of artificial knee joint, bilateral; Z87.891 Personal history of nicotine dependence; Z79.82 Long term (current) use of aspirin; R90.82 White matter disease, unspecified
CPT/HCPCS: 70450; 99284

== ENCOUNTER 2021-05-16 09:43 | Outpatient (CLI) | payer MEDICARE, SELFPAY ==
--- NOTE | ~2021-05-16 | CT_ITS ---
EXAMINATION: CT diagnostic chest wo con DATE: 05/16/2021 10:01 INDICATION: Interstitial lung disease, shortness of breath and cough TECHNIQUE: Computed tomography (CT) of the chest was performed without intravenous contrast. The dose -length product (DLP) was 841.32 mGy-cm. Automated exposure control and iterative reconstruction tech [employer] were employed. COMPARISON: 06/19/2020 FINDINGS: There are chronic 2 to 3 mm nodules throughout the lungs with an upper lobe predominance. M inimal subpleural groundglass opacities persist without significant change. There is no pleural effus ion or pneumothorax. No pathologically enlarged thoracic lymph nodes are identified. The heart size i s normal. Calcified coronary artery atherosclerosis is noted. There is a chronic burst fracture of T1 2 without significant change. There is a 4.4 cm fusiform aneurysm of the ascending aorta. IMPRESSION: 1. Mild chronic interstitial lung disease without significant change in a pattern of nonspecific inte rstitial pneumonia (NSIP). 2. Chronic small pulmonary nodules, most consistent with infection/inflammation. 3. Stable fusiform aneurysm of the ascending aorta. Reviewed, dictated and finalized at location A. ESS ENGINEER IMPRESSION: 1. Mild chronic interstitial lung disease without significant change in a patte rn of nonspecific interstitial pneumonia (NSIP). 2. Chronic small pulmonary nodules, most consistent with infection/inflammation . 3. Stable fusiform aneurysm of the ascending aorta.
== END 2021-05-16 09:44 | disposition home or self-care (01) ==
LOC: ANHIMG 09:43
PROVIDERS: PCP Physician Assistant; Visit Provider Internal Medicine Critical Care Medicine
DX: J84.9 Interstitial pulmonary disease, unspecified (principal); R91.1 Solitary pulmonary nodule; I71.4 Abdominal aortic aneurysm, without rupture
CPT/HCPCS: 71250

== ENCOUNTER 2021-05-24 11:37 | Outpatient (CLI) | payer MEDICARE, SELFPAY ==
[2021-05-24 12:30] VITALS: PULSE 74; O2SAT 92
[2021-05-24 12:35] VITALS: PULSE 92; O2SAT 86
[2021-05-24 12:40] VITALS: PULSE 94; O2SAT 88
[2021-05-24 12:45] VITALS: PULSE 96; O2SAT 91
[2021-05-24 12:55] VITALS: PULSE 76; O2SAT 92
--- NOTE | 2021-05-24 13:58 | HOMEO2EVAL ---
Evaluation was performed at [facility] Home Oxygen Evaluation RC: Home Oxygen (O2) Evaluation Start: 05/24/21 13:53 Freq: Status: Active Protocol: RPE Activity Type Activity Date Activity User E-Sign Co-Sign Detail Recorded Client Recorded Date Recorded By Document 05/24/21 12:30 [email or web address] [email or web address] 05/24/21 13:58 DJO Document 05/24/21 12:35 [email or web address] [email or web address] 05/24/21 13:58 DJO Document 05/24/21 12:40 [email or web address] [email or web address] 05/24/21 13:58 DJO Document 05/24/21 12:45 [email or web address] [email or web address] 05/24/21 13:58 DJO Document 05/24/21 12:55 [email or web address] [email or web address] 05/24/21 13:58 DJO 05/24/21 05/24/21 05/24/21 12:30 12:35 12:40 Home O2 Evaluation Test Phase Resting Exercise Exercise Oxygen Delivery Room Air Room Air Nasal Cannula Oxygen Flow Rate (L/min) 1 Pulse Oximetry (90-100 %) 92 86 L 88 L Pulse Rate (60-100 beats/min) 74 92 94 Ambulation Distance (feet) Ambulation Distance (meters) Treatment Charges O2 Evaluation - Inpatient 05/24/21 05/24/21 12:45 12:55 Home O2 Evaluation Test Phase Exercise Resting Oxygen Delivery Nasal Cannula Room Air Oxygen Flow Rate (L/min) 2 Pulse Oximetry (90-100 %) 91 92 Pulse Rate (60-100 beats/min) 96 76 Ambulation Distance (feet) 800 Ambulation Distance (meters) 243.82 Treatment Charges
--- NOTE | 2021-05-25 10:15 | WPDPFTINT ---
PFT Procedure Performed PFT Procedure Performed Spirometry with Pre/Post Bronchodilator Plethysmography (Lung Vol) Diffusing Cap (DLCO) Flow Vol Loop PFT Interpretation Lung volumes were measured with the body plethysmography method. Lung volumes are unremarkable. Spirometry showed normal expiratory flow rates and a normal FEV1 to FVC ratio of 71%. Following administration of a bronchodilator there was significant increase in the forced vital capacity. Lung diffusion capacity is borderline normal at 70% predicted. In comparison to previous study in 01/2020, the post bronchodilator FVC is now greater by approximately 200 ml. Total lung capacity and lung diffusion capacity are essentially unchanged. Impression: Spirometry, lung volumes within normal range. Borderline normal lung diffusion capacity.
== END 2021-05-24 11:38 | disposition home or self-care (01) ==
PROVIDERS: PCP Physician Assistant; Visit Provider Internal Medicine Critical Care Medicine
DX: R06.02 Shortness of breath (principal)
CPT/HCPCS: 94060; 94618; 94726; 94729

== ENCOUNTER → 2021-07-21 10:12 | Outpatient (CLI) | payer MEDICARE, SELFPAY ==
--- NOTE | ~2021-07-21 | MR_ITS ---
EXAMINATION: MR thoracic spine wo con DATE: 07/21/2021 11:19 INDICATION: Right-sided back pain. TECHNIQUE: Magnetic resonance imaging (MRI) of the thoracic spine was performed without intravenous c ontrast. Sagittal localizer T1-weighted FSE of the cervical spine was obtained. Thoracic spine sequen mariana included sagittal T2-weighted FSE, sagittal T1-weighted FSE, sagittal T2-weighted FS FSE, and axi al T2-weighted FSE. COMPARISON: None FINDINGS: There is 5 degrees levocurvature of thoracic spine. There is a chronic burst fracture of T1 2 with greater than 4/5 loss of height centrally and retropulsion of bone 2 mm into central spinal ca nal. Intervertebral disc heights are normal in thoracic spine. At T3-T4, there is a right central pro trusion with mild central canal stenosis. At T7-T8, there is a right central protrusion with mild kirti tral canal stenosis. At T10-T11, the disc is bulging with mild central canal stenosis. There is multi level mild to moderate facet joint osteoarthritis. On the right, there is mild neural foraminal steno sis at T1-T2. On the left, there is mild neural foraminal stenosis at T1-T2 and T10-T11. The spinal c ord signal intensity is normal. IMPRESSION: 1. Mild thoracic spondylosis. Reviewed, dictated and finalized at location A.
== END ==
PROVIDERS: PCP Physician Assistant; Visit Provider Nurse Practitioner Family
DX: M47.894 Other spondylosis, thoracic region (principal)
CPT/HCPCS: 72146

== ENCOUNTER → 2021-09-01 00:03 | Outpatient (CLI) | payer MEDICARE, SELFPAY ==
[2021-09-01 11:28] LABS: SARS-CoV-2 RNA PCR Negative
== END ==
PROVIDERS: PCP Physician Assistant; Visit Provider Internal Medicine
DX: B34.9 Viral infection, unspecified (principal); Z20.822 Contact with and (suspected) exposure to COVID-19
CPT/HCPCS: C9803; U0003; U0005

== ENCOUNTER 2021-09-04 15:30 | Outpatient (CLI) | payer MEDICARE, SELFPAY ==
--- NOTE | ~2021-09-04 | CT_ITS ---
EXAMINATION: CT IAC/mastoids BI wo con DATE: 09/04/2021 15:57 INDICATION: Left-sided external auditory meatus pain. Arthralgia temporomandibular joint, unspecified . TECHNIQUE: Computed tomography (CT) of the temporal bones was performed without intravenous contrast. Automated exposure control and iterative reconstruction technique were employed. The dose-length pro duct was 439.16 mGy-cm. COMPARISON: Head CT 05/13/2021 FINDINGS: There are mucous retention cysts in the maxillary sinuses. There are changes of left-sided scleral banding procedure. There are likely changes of ocular lens replacement surgeries. RIGHT TEMPORAL BONE: The internal auditory canal, cochlea, vestibule, semicircular canals, vestibular aqueduct, carotid ca nal, jugular bulb, facial nerve course, ossicles, tympanic membrane, Prussak space, scutum, mastoid a ir cells, and external auditory canal are normal. The temporomandibular joint is normal. LEFT TEMPORAL BONE: The internal auditory canal, cochlea, vestibule, semicircular canals, vestibular aqueduct, carotid ca nal, jugular bulb, facial nerve course, ossicles, Prussak space, scutum, tympanic membrane, mastoid a ir cells, and external auditory canal are normal. There is mild osteoarthritis of the temporomandibul ar joint. There is a 3 mm loose body in the temporomandibular joint. IMPRESSION: 1. 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 Reviewed, dictated and finalized at location A.
== END 2021-09-04 15:31 | disposition home or self-care (01) ==
PROVIDERS: PCP Physician Assistant; Visit Provider Physician Assistant
DX: M26.629 Arthralgia of temporomandibular joint, unspecified side (principal); M19.09 Primary osteoarthritis, other specified site
CPT/HCPCS: 70480

== ENCOUNTER 2021-11-13 09:03 | Outpatient (CLI) | payer MEDICARE, SELFPAY ==
--- NOTE | ~2021-11-13 | NM_ITS ---
EXAMINATION: NM gabriella stress w perfusion DATE: 11/13/2021 11:14 INDICATION: Chest pain and unspecified TECHNIQUE: Rest images were obtained following intravenous administration of 9.29 mCi Tc99m tetrofosm in (Myoview). The patient was infused intravenously with Lexiscan (Regadenoson). Then, 20.0 mCi Tc99m tetrofosmin (Myoview) was administered intravenously, and stress images were obtained. Data was magy nstructed into short axis and horizontal and vertical long axis SPECT images. Gated SPECT images were also obtained. COMPARISON: None. FINDINGS: There is no definite reversible or fixed perfusion abnormality to suggest ischemia or infar ction. There is normal left ventricular chamber size, wall motion and ejection fraction. Left ventr icular ejection fraction measures 56%. IMPRESSION: 1. Normal myocardial perfusion at rest and during stress. 2. Left ventricular ejection fraction measuring 56%. Reviewed, dictated and finalized at location A.
--- NOTE | 2021-11-13 09:38 | EST_ITS ---
Patient Info Name: Mikael Hall Age: 76 years : 1945 Gender: Male Ht: 71 in Wt: 267 lbs BSA: 2.51 m2 Exam Date: 11/13/2021 10:07 AM Exam Location: [facility] Stress Patient Status: Outpatient Admit Date: 11/13/2021 Staff Ordering Physician: Parviz Fox DO Attending Provider: Parviz Fox DO Exercise Technologist: Flavia Fontenot RDCS Exercise Physician: Parviz Fox DO Exam Type: CA stress gabriella w NM Study Info Indications R07.9 - Chest pain, unspecified A regadenoson stress test was performed. Summary 1. 1. Negative lexiscan stress test for ischemic ST changes by ECG criteria. 2. 2. Stable hemodynamics throughout the test. 3. 3. Nuclear scan to follow and will be reported separately. Please correlate with it. 4. 4. Patient informed of the above results. Protocol: Lexiscan Stress ECG Details Stage: REST Duration (min): 7 min : 25 sec HR (bpm): 54 SBP (mmHg): 108 DBP (mmHg): 75 Stage: REST Duration (min): 17 min : 57 sec HR (bpm): 54 SBP (mmHg): 108 DBP (mmHg): 75 Stage: STAGE 1 Duration (min): 1 min : 0 sec HR (bpm): 64 SBP (mmHg): 101 DBP (mmHg): 74 Stage: RECOVERY Duration (min): 1 min : 0 sec HR (bpm): 80 SBP (mmHg): 94 DBP (mmHg): 60 Stage: RECOVERY Duration (min): 2 min : 0 sec HR (bpm): 75 SBP (mmHg): 94 DBP (mmHg): 60 Stage: RECOVERY Duration (min): 3 min : 0 sec HR (bpm): 67 SBP (mmHg): 101 DBP (mmHg): 56 Stage: RECOVERY Duration (min): 3 min : 35 sec HR (bpm): 66 SBP (mmHg): 101 DBP (mmHg): 56 Rest HR: 54 bpm Peak HR: 80 bpm Rest Sys BP: 108 mmHg Peak Sys BP: 101 mmHg Max Pred HR: 143 bpm % Max Pred HR: 56 % Target HR: 122 bpm Max RPP: 8,080 bpm*mmHg Termination Reason: Completed protocol Cardiac Symptoms: Shortness of breath Total Time: 1 min : 0 sec Rest Roberts BP: 75 mmHg Peak Roberts BP: 74 mmHg Total Dose: 0.4 mg Resting ECG Sinus bradycardia. Stress ECG No ST changes. Arrhythmias None. Report Signatures
== END 2021-11-13 09:04 | disposition home or self-care (01) ==
PROVIDERS: PCP Physician Assistant; Visit Provider Internal Medicine Cardiovascular Disease
DX: R07.9 Chest pain, unspecified (principal)
CPT/HCPCS: 78452; 93017; A9502; J2785

== ENCOUNTER 2022-01-24 00:44 | Day surgery (SDC) | payer MEDICARE, SELFPAY ==
--- NOTE | 2022-01-17 10:23 | PC.NURSE ---
Report to the Outpatient Waiting Room, entrance under the green pavilion located off [facility], at time _0600_ on date _01/24/22_. Planned Procedure Time: _0730_. Time changes happen often and if your time is changed the preop area will call you the afternoon before. - You and your visitor will be asked to self-screen and do not enter if you have any COVID symptoms. - We encourage only one visitor and NO visitors under age 16 are allowed at this time. Your visitor will receive communication by the phone number that is given day of service. - The patient visitor is requested to social distance or may leave the building when not with patient due to restrictions. - A mask is required within the hospital. Patients may have clear liquids (water, carbonated beverages, clear teas, apple juice) until 3 hours prior to surgery (0430 AM) with a maximum of 20 ounces. - No food from midnight until time of surgery - Infants may have breast milk until 4 hours before surgery, formula 6 hours prior to surgery. - Children will be allowed to drink immediately following surgery. If applicable, please bring a bottle or sippy cup to assist with drinking. Juice, water, soda, and popsicles are readily available. For infants on formula, please bring formula the day of surgery. Pacifiers are allowed. Take the following medications with a SIP of water the morning of surgery: _INHALER, BUSPIRONE, ISOSORBIDE, METOPROLOL, SERTRALINE__ Medications to discontinue per physician _VITAMINS/SUPPLEMENTS 3 DAYS PRIOR TO SURGERY, Date to take last dose 01/20/22_ Please no make-up, nail albanian, hairspray, perfume, deodorant, or body powder the day of surgery. No jewelry (including any body piercings) or valuables the day of surgery, leave them at home. Please take a shower or bath the night before, or the morning of, surgery with an antibacterial soap. Wear comfortable, loose fitting clothing. Children are encouraged to wear pajamas. - Jewelry must be removed prior to entering the operating room. Rings and piercings that are not removed may be cut off. - The hospital will not accept responsibility for valuables. - Please leave all valuables, including medications, at home the day of surgery. If you are going home after surgery, a licensed tank driver must drive you home. - NO public transportation without another adult. - We recommend that an adult stay with you for 24 hours following discharge. - We also recommend that you do not drive, make important decision, drink alcoholic beverages, or take any drugs that were not prescribed by your health care provider for at least 24 hours after your discharge time. For Pediatric surgeries, we recommend two adults accompany the child home. Follow any additional instructions given to you from your surgeon. If you or anyone in your household have experienced Covid symptoms in the past week, please notify your surgeon or the nurse liaison at the phone number below for possible testing. Telephone instructions given to PT and asked if any additional questions and then verbalized understanding. Patient advised to call surgeon office or pre surgery nurse liaison [phone] if any additional questions.
[2022-01-17 10:29] VITALS: BMI 33.7
[2022-01-24 06:29] VITALS: BP 144/91; PULSE 66; RESP 16; TEMP 36.3; O2SAT 95
--- NOTE | 2022-01-24 06:53 | WPDANESEPPF ---
Anes - Initial Pre Proc Eval Procedure: Operation Date: 01/24/22 07:30 Proposed Procedures p Excision Squamous Cell Carcinoma Insitu Right Forehead with Frozen Section, Excision Squamous Cell Carcinoma Insitu Left Parietal Scalp with Frozen Section - John Zhang MD Date/Time: 01/24/22 06:53 Surgeon: John Zhang MD Pre Op Diagnosis: sq cell CA insitu rt forehead and lt parietal scal Patient Data Age: 76 Gender: M Height: 1.82 m Weight: 114.2 kg Last Vital Signs Temp 36.3 C L 01/24/22 06:29 Pulse 66 01/24/22 06:29 Resp 16 01/24/22 06:29 BP 144/91 H 01/24/22 06:29 Pulse Ox 95 01/24/22 06:29 O2 Del Method Room Air 01/24/22 06:29 Allergies Allergy/AdvReac Type Severity Reaction Status Date / Time No Known Allergies Allergy Verified 01/17/22 10:00 Home Medications Medication Instructions Recorded Confirmed Type omega-3 fatty acids 1,000 mg 1,000 mg PO BID #180 caps 09/07/19 01/17/22 Rx capsule (Fish Oil Concentrate) aspirin 81 mg tablet,delayed See Rx Instructions .Route 04/19/21 01/17/22 Rx release .COMPLEX #30 tabs magnesium 30 mg tablet 30 mg PO DAILY 08/20/21 01/17/22 History vitamin B complex (B 1 tablet PO DAILY 08/20/21 01/17/22 History Complex-Vitamin B12 tablet) upadacitinib 15 mg tablet,extended 15 mg PO DAILY #30 tabs 08/24/21 01/17/22 Rx release 24 hr (Rinvoq) sertraline 50 mg tablet (Zoloft) 100 mg PO DAILY 10/17/21 01/17/22 History albuterol sulfate 90 mcg/actuation 1 - 2 puff inhalation Q4-6H PRN 12/19/21 01/17/22 Rx aerosol inhaler shortness of breath or wheezing #8.5 grams fluticasone fur. 200 mcg-umeclid 1 inh inhalation DAILY #60 ea 12/19/21 01/17/22 Rx 62.5 mcg-vilant 25 mcg inhalat.powder (Trelegy Ellipta) atorvastatin 20 mg tablet 20 mg PO DAILY #90 tabs 12/21/21 01/17/22 Rx buspirone 10 mg tablet 10 mg PO BID 01/17/22 01/17/22 History isosorbide mononitrate 10 mg tablet See Rx Instructions .Route 01/21/22 Rx .COMPLEX #30 tabs alendronate 70 mg tablet 70 mg PO WEEKLY #12 tabs 01/22/22 Rx calcium carbonate 600 mg-vitamin 600 cap PO BID #180 caps 01/22/22 Rx D3 12.5 mcg (500 unit) capsule (Calcium 600 with Vitamin D3) metoprolol succinate 25 mg 25 mg PO DAILY #30 tabs 01/22/22 Rx tablet,extended release 24 hr Patient hx anesthesia problems: none Family hx anesthesia problems: none Results Review: All pre-operative results and documents have been reviewed as part of the pre-operative evaluation. [facility] Past Medical History Medical History Abnormal stress test Acromioclavicular arthrosis Anxiety disorder, unspecified Blood in stool Body mass index (BMI) 35.0-35.9, adult (12/17/18) CAD in [place] artery Chest pain in adult Counseling on health promotion and disease prevention Dependence on other enabling machines and devices Depression Detached retina Dietary counseling and surveillance (08/25/15) Dyslipidemia Encounter for medication management Encounter for other preprocedural examination Encounter for screening for other viral diseases Gastro-esophageal reflux disease without esophagitis Generalized osteoarthritis of multiple sites Hernia HTN (hypertension) with goal to be determined Hx of prostatic malignancy Hypertriglyceridemia ILD (interstitial lung disease) Irregular heart rhythm Left sided sciatica Low back pain without sciatica Lumbar radiculitis Malignant neoplasm involving prostate by direct extension from urinary bladder Multiple pulmonary nodules determined by computed tomography of lung Obesity (BMI 35.0-39.9 without comorbidity) Odynophagia Osteoarthritis involving multiple joints on both sides of body Osteopenia Other fatigue Other hyperlipidemia Pain in unspecified limb Pain of both sacroiliac joints Prostate cancer Pure hypercholesterolemia, unspecified Rash and other nonspecific skin eruption Rheumatoid arthritis of multiple
--- NOTE | 2022-01-24 07:06 | WPDHPUPDATE1 ---
History and Physical Update Update Date/Time: 01/24/22 07:06 History and Physical has been reviewed, including an updated exam of the patient. There are NO changes in the patient's condition. Risks, benefits, and alternatives have been discussed and questions answered. Patient agrees to proceed with procedure.
[2022-01-24] MEDS: LACTATED RINGERS 1,000 ML 30 ML IV CONT (07:09)
[2022-01-24] MEDS: BACITRACIN OINTMENT 15 GM TUBE 1 APPLIC TOPICAL (07:32)
[2022-01-24 09:17] VITALS: BP 105/74; PULSE 86; RESP 16; O2SAT 95
--- NOTE | 2022-01-24 09:26 | W.PM.PROC2 ---
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 1.5 cm excision of squamous cell carcinoma in Situ of the left parietal scalp with frozen section and simple repair 3 cm Surgeon John Zhang MD Anesthesia MAC Indications Previous biopsies Findings Possible incidental basal cell carcinoma from the left parietal scalp. The final pathology is pending permanent sections. Description of Procedure The 2 sites above were marked on the patient; each site was easily identified. Patient was taken to the operating room where he was placed supine on the operating table. He was given IV sedation with an LMA. The time-out was held and confirmed. The face and scalp were prepped and draped in usual fashion. The sites were marked for excision. Each was infiltrated with 2% lidocaine with epinephrine. The lesion from the left parietal scalp was incised with an estimated margin. Full-thickness skin specimen including underlying fat was sent to pathologist for frozen section. The pathologist revealed that no squamous cell carcinoma in Situ was identified but he thought there was possible basal cell carcinoma at the 5-8 margin. A 2nd crescent of tissue from that area was excised and this was designated the 5-8 o'clock margin and the old 6:00 o'clock margin was marked with a suture. This tissue was sent for permanent section. The wound was undermined about 5 mm and closed easily with running 3-0 nylon suture. The lesion from the right forehead was excised with an estimated margin. The resection was carried into the subcutaneous fat the aspect nearest the orbit was marked with a suture for 12 o'clock. The tissue was sent for frozen section and the pathologist revealed no residual cancer and margins free. The wound margins were undermined 5 mm or so and closed with intradermal 4-0 Vicryl and a running 5 0. Estimated Blood Loss -2.0 Drains No Packing No Pathology Yes Complications No immediate complications Condition Stable Disposition PACU
[2022-01-24 09:47] VITALS: BP 115/80; PULSE 61; RESP 16; O2SAT 95
== END 2022-01-24 10:18 | disposition home or self-care (01) ==
PROVIDERS: PCP Physician Assistant; Visit Provider Plastic Surgery
PROC: (CPT 11642; principal; 2022-01-24 07:30)
DX: C44.329 Squamous cell carcinoma of skin of other parts of face (principal); C44.42 Squamous cell carcinoma of skin of scalp and neck; I25.10 Atherosclerotic heart disease of native coronary artery without angina pectoris; F41.9 Anxiety disorder, unspecified; K21.9 Gastro-esophageal reflux disease without esophagitis; I10 Essential (primary) hypertension; J84.9 Interstitial pulmonary disease, unspecified; E78.49 Other hyperlipidemia; M06.9 Rheumatoid arthritis, unspecified; E66.9 Obesity, unspecified; Z68.34 Body mass index [BMI] 34.0-34.9, adult; Z87.891 Personal history of nicotine dependence; Z79.51 Long term (current) use of inhaled steroids; Z79.82 Long term (current) use of aspirin
CPT/HCPCS: 11642; 12052; 11622; 88305; 88331; A9270; J2250; J2405; J2704; J3010; J7120

== ENCOUNTER → 2022-04-29 12:19 | Outpatient (CLI) | payer MEDICARE, SELFPAY ==
--- NOTE | ~2022-04-29 | US_ITS ---
EXAMINATION: US soft tissue UE LT DATE: 04/29/2022 12:51 INDICATION: Left forearm pain. TECHNIQUE: Multiple grayscale and Doppler ultrasound images of the left forearm were obtained. COMPARISON: None FINDINGS: There is no abnormality in the patient's area of concern in left forearm. IMPRESSION: 1. No abnormality in the patient's area of concern in left forearm. Reviewed, dictated and finalized at location A. TH CARE RECRUITER
== END ==
PROVIDERS: PCP Internal Medicine; Visit Provider Physician Assistant
DX: M79.632 Pain in left forearm (principal)
CPT/HCPCS: 76882

== ENCOUNTER 2022-04-30 11:48 | Outpatient (CLI) | payer MEDICARE, SELFPAY ==
[2022-04-30 12:29] LABS: Basophils Percent Auto 0.5 % (0.2-1.2); Eosinophils Absolute Auto 0.1 K/mm3 (0-0.3); Eosinophils Percent Auto 1.2 % (0-4.4); Hematocrit 43.5 % (42.0-52.0); Hemoglobin 14.8 g/dL (14.0-18.0); Immature Granulocyte Absolute 0.04 K/mm3 (0.00-0.031); Immature Granulocyte Percent A 0.7 % (0-0.5); Lymphocytes Absolute Auto 1.45 K/mm3 (0.9-3.2); Lymphocytes Percent Auto 25.7 % (18.3-44.2); Mean Corpuscular Hemoglobin 29.6 pg (26-34); Mean Platelet Volume 9.6 fl (7.4-10.4); Monocytes Absolute Auto 0.5 K/mm3 (0.1-0.6); Monocytes Percent Auto 8.5 % (2.6-8.5); Neutrophils Absolute Auto 3.6 K/mm3 (1.3-6.7); Neutrophils Percent Auto 63.4 % (45.5-73.1); Platelet Count Result 226 k/mm3 (150-375); Red Cell Distribution Width 13.5 % (11.5-14.5); White Blood Count 5.6 K/mm3 (4.5-10.0)
[2022-04-30 12:31] LABS: Appearance Urine Clear (Clear); Bilirubin Urine Negative (Negative); Blood Urine Negative (Negative); Color Urine Yellow (Yellow); Glucose Urine UA Negative (Negative); Ketones Urine Negative (Negative); Leukocyte Esterase Ur Negative LEU/UL (Negative); Nitrate Urine Negative (Negative); Protein Urine Negative (Negative); Specific Grav Ur 1.025 (1.001-1.035); Urobilinogen Urine 0.2 mg/dL (<2.0); pH Urine 5.5 (5.0-9.0)
[2022-04-30 12:33] LABS: Add Urine Microscopic? NO
[2022-04-30 12:40] LABS: Prothrombin Time 13.1 Seconds (11.1-14.7)
== END 2022-04-30 11:49 | disposition home or self-care (01) ==
PROVIDERS: PCP Internal Medicine; Visit Provider Physician Assistant
DX: Z01.818 Encounter for other preprocedural examination (principal)
CPT/HCPCS: 36415; 81003; 85025; 85610

== ENCOUNTER 2022-04-30 11:58 | Outpatient (CLI) | payer MEDICARE, SELFPAY ==
[2022-04-30 12:42] LABS: Cholesterol 170 mg/dL (0-200); HDL Direct 34 mg/dL; Triglycerides 255 mg/dL (<150)
[2022-04-30 12:44] LABS: Alanine Aminotransferase 24 U/L (6-50); Albumin Level 4.3 g/dL (3.5-5.1); Alkaline Phosphatase 56 U/L (38-126); Anion Gap 6 mmol/L (8-16); Aspartate Amino Transferase 29 U/L (17-59); Bilirubin,Total 0.7 mg/dL (0.2-1.3); Blood Urea Nitrogen 17 mg/dL (9-20); CRP < 0.5 mg/dL (<1.0); Calcium 8.6 mg/dL (8.4-10.2); Carbon Dioxide 27 mmol/L (22-30); Chloride 108 mmol/L (98-107); Estimated Glomerular Filt Rate > 60; Glucose 88 mg/dL (65-110); Potassium 4.1 mmol/L (3.4-5.0); Sodium 141 mmol/L (137-145)
[2022-04-30 12:52] LABS: LDL Cholesterol Direct 81 mg/dL
[2022-04-30 13:14] LABS: Prostate Specific Antigen < 0.1 ng/mL (< OR = 4.0)
[2022-04-30 14:25] LABS: Erythrocyte Sedimentation Rate 10 mm/hr (0-20)
== END 2022-04-30 11:59 | disposition home or self-care (01) ==
PROVIDERS: Internal Medicine Cardiovascular Disease; Physician Assistant; PCP Internal Medicine; Visit Provider Internal Medicine
DX: M06.09 Rheumatoid arthritis without rheumatoid factor, multiple sites (principal); M19.90 Unspecified osteoarthritis, unspecified site; E78.5 Hyperlipidemia, unspecified; Z12.5 Encounter for screening for malignant neoplasm of prostate
CPT/HCPCS: 36415; 80053; 80061; 84153; 85652; 86140; G0103

== ENCOUNTER 2022-06-23 11:59 | Emergency (ER) | payer MEDICARE, SELFPAY ==
--- NOTE | 2022-06-23 13:30 | ED.URI ---
HPI - URI/Sore Throat General Chief Complaint: Upper Respiratory Infection Stated Complaint: SORE THROAT/COUGH/FEVER Source: patient and RN notes reviewed History of Present Illness HPI Narrative: 77 yo M presents to urgent care with complaints of congestion, cough, night sweats, and diarrhea since Friday night. Pt denies any vomiting. Pt denies any new chest pain or SOB. Pt states he had back surgery on 05/24/22 and went to rehab after this. Was released from rehab 2 weeks ago. Pt noted to be hypotensive in exam room and states his BP is normally not low. Pt does reports feeling lightheaded. Related Data Home Medications Medication Instructions Recorded Confirmed magnesium 30 mg tablet 30 mg PO DAILY 08/20/21 06/21/22 vitamin B complex (B 1 tablet PO DAILY 08/20/21 06/21/22 Complex-Vitamin B12 tablet) buspirone 10 mg tablet 10 mg PO BID 02/25/22 06/21/22 duloxetine 20 mg capsule,delayed 20 mg PO BID 02/25/22 06/21/22 release acetaminophen 650 mg 650 mg PO Q12H 04/22/22 06/21/22 tablet,extended release (Tylenol 8 Hour) Allergies Allergy/AdvReac Type Severity Reaction Status Date / Time No Known Allergies Allergy Verified 06/23/22 13:13 Review of Systems Review of Systems: CONSTITUTIONAL: Night sweats EYES: Denies visual changes, redness, or discharge. ENT: congestion CARDIOVASCULAR: Denies chest pain, palpitations, or edema. RESPIRATORY: cough GASTROINTESTINAL: diarrhea. GENITOURINARY: Denies dysuria or hematuria. SKIN: Denies rash or itching. MUSCULOSKELETAL: Denies back pain, joint pain, or myalgia. NEUROLOGIC: lightheadedness Pertinent positives per HPI. [facility] Past Medical History Medical History Abnormal stress test Acromioclavicular arthrosis Anxiety disorder, unspecified Blood in stool Body mass index (BMI) 35.0-35.9, adult (12/17/18) CAD in [place] artery Chest pain in adult Counseling on health promotion and disease prevention Dependence on other enabling machines and devices Depression Detached retina Dietary counseling and surveillance (08/25/15) Dyslipidemia Encounter for medication management Encounter for other preprocedural examination Encounter for screening for other viral diseases Gastro-esophageal reflux disease without esophagitis Generalized osteoarthritis of multiple sites Hernia HTN (hypertension) with goal to be determined Hx of prostatic malignancy Hypertriglyceridemia ILD (interstitial lung disease) Irregular heart rhythm Left sided sciatica Low back pain without sciatica Lumbar radiculitis Malignant neoplasm involving prostate by direct extension from urinary bladder Multiple pulmonary nodules determined by computed tomography of lung Obesity (BMI 35.0-39.9 without comorbidity) Odynophagia Osteoarthritis involving multiple joints on both sides of body Osteopenia Other fatigue Other hyperlipidemia Pain in unspecified limb Pain of both sacroiliac joints Prostate cancer Pure hypercholesterolemia, unspecified Rash and other nonspecific skin eruption Rheumatoid arthritis of multiple sites without rheumatoid factor Rheumatoid arthritis of unspecified site with involvement of other organs and systems Right hip pain Skin tag SOB (shortness of breath) Tinea corporis Surgical History Surgical History H/O eye surgery Repair of detached retina H/O hernia repair X2 H/O radical prostatectomy History of arthroscopy of left shoulder History of back surgery History of bilateral knee replacement History of cataract extraction Family History Family History Father Family history of obesity Family history of throat cancer Patient's father is Family history of Alzheimer's disease Mother Asthma Patient's mother is Sibling Diabetes mellitus Fam
[2022-06-23 13:45] VITALS: BP 91/67; PULSE 84; RESP 16; TEMP 35.9; O2SAT 98
--- NOTE | 2022-06-23 13:46 | ECG_ITS ---
Measurements Intervals [place] Rate: 81 P: -20 NE: 148 QRS: 27 QRSD: 98 T: 19 QT: 374 QTc: 435 Interpretive Statements SINUS RHYTHM NORMAL ECG COMPARED TO ECG 08/10/2020 17:49:09 NO SIGNIFICANT CHANGES Electronically Signed On 06-23-2022 15:57:08 CDT by Parviz Fox D.O.
[2022-06-23 14:03] VITALS: BP 95/66; PULSE 80
[2022-06-23 14:04] VITALS: BP 90/75; BP 91/72; PULSE 86; PULSE 94
== END 2022-06-23 14:05 | disposition home or self-care (01) ==
PROVIDERS: Emergency Provider Nurse Practitioner Family; PCP Internal Medicine
DX: I95.9 Hypotension, unspecified (principal); I25.10 Atherosclerotic heart disease of native coronary artery without angina pectoris; E78.5 Hyperlipidemia, unspecified; I10 Essential (primary) hypertension; Z85.46 Personal history of malignant neoplasm of prostate; Z87.891 Personal history of nicotine dependence; Z20.822 Contact with and (suspected) exposure to COVID-19
CPT/HCPCS: 87426; 93005; 99213; C9803; G0463

== ENCOUNTER 2022-06-23 14:26 | Emergency (ER) | payer MEDICARE, SELFPAY ==
[2022-06-23] VITALS (9 sets, daily range): BP systolic 113–137; BP diastolic 70–98; PULSE 67–88; RESP 16–18; TEMP 36.4; O2SAT 94–100
--- NOTE | ~2022-06-23 | XR_ITS ---
XR chest 2V DATE: 06/23/2022 14:57 INDICATION: Dyspnea, cough TECHNIQUE: PA and lateral views COMPARISON: May 16, 2021 CT chest August 10, 2020 2 view chest FINDINGS: Normal heart size. Mild aortic unfolding. No pulmonary infiltrate or consolidation, pleural effusion or pulmonary vascular congestion or pneumothorax is detected. There is severe loss of height and anterior wedging of a thoracolumbar vertebra. IMPRESSION: No active cardiopulmonary disease Apparent severe loss of height and anterior wedging of a thoracolumbar vertebra. This is chronic, inv olving T12, present on May 16, 2021 CT chest examination Reviewed, dictated and finalized at location A. IMPRESSION: No active cardiopulmonary disease Apparent severe loss of height and anterior wedging of a thoracolumbar vertebra . This is chronic, involving T12, present on May 16, 2021 CT chest examina tion
--- NOTE | 2022-06-23 14:30 | ECG_ITS ---
Measurements Intervals [place] Rate: 80 P: 8 CO: 187 QRS: 10 QRSD: 103 T: 15 QT: 384 QTc: 444 Interpretive Statements SINUS RHYTHM BASELINE ARTIFACT- I, II, AVR, AVF NORMAL ECG COMPARED TO ECG 06/23/2022 13:39:18 NO SIGNIFICANT CHANGES Electronically Signed On 06-23-2022 15:58:56 CDT by Parviz Fox D.O.
[2022-06-23 15:07] LABS: Basophils Percent Auto 0.2 % (0.2-1.2); Eosinophils Absolute Auto 0.1 K/mm3 (0-0.3); Eosinophils Percent Auto 1.5 % (0-4.4); Hemoglobin 12.1 g/dL (14.0-18.0); Immature Granulocyte Absolute 0.03 K/mm3 (0.00-0.031); Immature Granulocyte Percent A 0.6 % (0-0.5); Lymphocytes Absolute Auto 2.02 K/mm3 (0.9-3.2); Lymphocytes Percent Auto 38.8 % (18.3-44.2); Mean Corpuscular HGB Conc 32.7 g/dl (32-36); Mean Corpuscular Volume 91.6 fl (80-100); Mean Platelet Volume 9.9 fl (7.4-10.4); Monocytes Absolute Auto 0.9 K/mm3 (0.1-0.6); Monocytes Percent Auto 16.9 % (2.6-8.5); Neutrophils Absolute Auto 2.2 K/mm3 (1.3-6.7); Platelet Count Result 204 k/mm3 (150-375); Red Blood Count 4.04 M/mm3 (4.6-6.20); Red Cell Distribution Width 13.3 % (11.5-14.5); White Blood Count 5.2 K/mm3 (4.5-10.0)
[2022-06-23 15:27] LABS: Alanine Aminotransferase 22 U/L (6-50); Albumin Level 4.3 g/dL (3.5-5.1); Alkaline Phosphatase 67 U/L (38-126); Anion Gap 7 mmol/L (8-16); Aspartate Amino Transferase 29 U/L (17-59); Bilirubin,Total 0.7 mg/dL (0.2-1.3); Blood Urea Nitrogen 19 mg/dL (9-20); Calcium 8.5 mg/dL (8.4-10.2); Carbon Dioxide 26 mmol/L (22-30); Chloride 107 mmol/L (98-107); Estimated CRCL calculation 63 ml/min; Estimated Glomerular Filt Rate > 60; Glucose 91 mg/dL (65-110); Potassium 4.3 mmol/L (3.4-5.0); Sodium 140 mmol/L (137-145)
--- NOTE | 2022-06-23 18:00 | ED.SOB ---
HPI - SOB/Dyspnea General Chief Complaint: Shortness of Breath/Dyspnea Stated Complaint: dyspnea Time Seen by Provider: 06/23/22 17:09 History of Present Illness HPI Narrative: This is a 77-year-old male, with past medical history of COPD, coronary artery disease, who presents to the emergency department complaining of cough with soreness for the past 3 days. He states the cough is nonproductive and nonbloody. He complains of upper abdominal soreness with prolonged coughing and intermittent episodes of lightheadedness. He also has had 2-3 episodes of loose stools without blood. He states he was seen at an urgent care and referred here for hypotension. I received notification from [place] urgent care, the patient's blood pressure was in the 80s over 60s where his report normal was reported in the 120s. He the patient tested negative for COVID. Related Data Home Medications Medication Instructions Recorded Confirmed magnesium 30 mg tablet 30 mg PO DAILY 08/20/21 06/23/22 vitamin B complex (B 1 tablet PO DAILY 08/20/21 06/23/22 Complex-Vitamin B12 tablet) buspirone 10 mg tablet 10 mg PO BID 02/25/22 06/23/22 duloxetine 20 mg capsule,delayed 20 mg PO BID 02/25/22 06/23/22 release acetaminophen 650 mg 650 mg PO Q12H 04/22/22 06/23/22 tablet,extended release (Tylenol 8 Hour) Allergies Allergy/AdvReac Type Severity Reaction Status Date / Time No Known Allergies Allergy Verified 06/23/22 14:33 Review of Systems Review of Systems: CONSTITUTIONAL: Denies fever, chills, or sweats. EYES: Denies visual changes, redness, or discharge. ENT: Rhinorrhea, congestion, sore throat denies otalgia. CARDIOVASCULAR: Denies chest pain, palpitations, or edema. RESPIRATORY: Nonproductive cough denies dyspnea. GASTROINTESTINAL: Denies abdominal pain, nausea, vomiting, or diarrhea. GENITOURINARY: Denies dysuria or hematuria. SKIN: Denies rash or itching. MUSCULOSKELETAL: Denies back pain, joint pain, or myalgia. NEUROLOGIC: Denies headache, numbness, dizziness, or weakness. PSYCHIATRIC: Denies anxiety or depression. [facility] Past Medical History Medical History Abnormal stress test Acromioclavicular arthrosis Anxiety disorder, unspecified Blood in stool Body mass index (BMI) 35.0-35.9, adult (12/17/18) CAD in [place] artery Chest pain in adult Counseling on health promotion and disease prevention Dependence on other enabling machines and devices Depression Detached retina Dietary counseling and surveillance (08/25/15) Dyslipidemia Encounter for medication management Encounter for other preprocedural examination Encounter for screening for other viral diseases Gastro-esophageal reflux disease without esophagitis Generalized osteoarthritis of multiple sites Hernia HTN (hypertension) with goal to be determined Hx of prostatic malignancy Hypertriglyceridemia ILD (interstitial lung disease) Irregular heart rhythm Left sided sciatica Low back pain without sciatica Lumbar radiculitis Malignant neoplasm involving prostate by direct extension from urinary bladder Multiple pulmonary nodules determined by computed tomography of lung Obesity (BMI 35.0-39.9 without comorbidity) Odynophagia Osteoarthritis involving multiple joints on both sides of body Osteopenia Other fatigue Other hyperlipidemia Pain in unspecified limb Pain of both sacroiliac joints Prostate cancer Pure hypercholesterolemia, unspecified Rash and other nonspecific skin eruption Rheumatoid arthritis of multiple sites without rheumatoid factor Rheumatoid arthritis of unspecified site with involvement of other organs and systems Right hip pain Skin tag SOB (shortness of breath) Tinea corporis Surgical History Surgical History H/O eye surgery Repair of detached retina H/O hernia repair X2 H/O radical prostatectomy History of arthroscopy of left shoulder History of
[2022-06-23] MEDS: LACTATED RINGERS 1,000 ML 999 ML IV CONT (18:11)
[2022-06-23] MEDS: ALBUTEROL SULFATE NEB 2.5 MG/3 ML INH INHALATION (18:14)
[2022-06-23 18:57] LABS: Influenza A QL RT-PCR Negative (Negative); Influenza B QL RT-PCR Negative (Negative)
== END 2022-06-23 20:11 | disposition home or self-care (01) ==
PROVIDERS: Emergency Medicine; Emergency Provider Preventive Medicine Aerospace Medicine; PCP Internal Medicine
DX: J06.9 Acute upper respiratory infection, unspecified (principal); R42 Dizziness and giddiness; J44.9 Chronic obstructive pulmonary disease, unspecified; J84.9 Interstitial pulmonary disease, unspecified; I25.10 Atherosclerotic heart disease of native coronary artery without angina pectoris; I10 Essential (primary) hypertension; E78.1 Pure hyperglyceridemia; E78.00 Pure hypercholesterolemia, unspecified; K21.9 Gastro-esophageal reflux disease without esophagitis; M19.90 Unspecified osteoarthritis, unspecified site; E66.9 Obesity, unspecified; Z68.35 Body mass index [BMI] 35.0-35.9, adult; F41.9 Anxiety disorder, unspecified; F32.A Depression, unspecified; Z85.46 Personal history of malignant neoplasm of prostate; Z87.891 Personal history of nicotine dependence; Z90.79 Acquired absence of other genital organ(s); Z96.653 Presence of artificial knee joint, bilateral; Z98.49 Cataract extraction status, unspecified eye; Z79.82 Long term (current) use of aspirin
CPT/HCPCS: 36415; 71046; 80053; 85025; 87426; 87502; 93005; 94640; 96360; 99283; C9803; J7120

== ENCOUNTER → 2022-11-04 09:52 | Outpatient (CLI) | payer MEDICARE, SELFPAY ==
--- NOTE | ~2022-11-04 | CT_ITS ---
EXAMINATION: CT abdomen pelvis w con DATE: 11/04/2022 10:19 INDICATION: Left lower quadrant abdominal pain TECHNIQUE: Computed tomography (CT) of the abdomen and pelvis was performed with 100 mL Omnipaque-350 intravenous contrast. Automated exposure control and iterative reconstruction technique were employe d. The dose-length product was 1084.97 mGy-cm. COMPARISON: None FINDINGS: Lung bases are clear. Heart size is normal. Atherosclerotic coronary artery calcifications. No perica rdial or pleural effusion. Liver, gallbladder, spleen, pancreas, right kidney and bilateral adrenal g lands are normal. 5 mm left renal cyst. 2 mm nonobstructing stone at an upper pole calyx of the left kidney. There is moderate colonic diverticulosis with a sigmoid and descending colon predominance. T here is no adjacent inflammatory change to suggest diverticulitis. No bowel obstruction. The appendix is not visualized. No pericecal inflammatory change to suggest acute appendicitis. Status post prost atectomy with multiple surgical clips bilaterally in the pelvis consistent with prior pelvic lymph no de dissection. There is calcified atherosclerosis of the aorta and many of the other arteries. No mary e intraperitoneal gas or fluid. No pathologically enlarged abdominal or pelvic lymphadenopathy. Chron ic T12 compression fracture. Interval combined instrumented L4-S1 anterior and posterior spinal fusio n including bilateral vertical rods with pedicle screws and bilateral iliac screws. IMPRESSION: 1. Moderate diverticulosis without evident acute diverticulitis or other acute intra-abdominal/pelvic process. 2. 2 mm nonobstructing left renal stone. Reviewed, dictated and finalized at location B.
[2022-11-04 10:09] LABS: Estimated Glomerular Filt Rate 53
== END ==
PROVIDERS: PCP Physician Assistant; Visit Provider Physician Assistant
DX: R10.32 Left lower quadrant pain (principal); Z87.19 Personal history of other diseases of the digestive system; N20.0 Calculus of kidney; K57.30 Diverticulosis of large intestine without perforation or abscess without bleeding
CPT/HCPCS: 74177; Q9967

== ENCOUNTER 2023-03-13 12:01 | Outpatient (CLI) | payer MEDICARE, SELFPAY ==
[2023-03-13 13:00] VITALS: PULSE 66; O2SAT 94
[2023-03-13 13:03] VITALS: PULSE 114; O2SAT 87
[2023-03-13 13:05] VITALS: O2SAT 90
[2023-03-13 13:15] VITALS: PULSE 71; O2SAT 93
--- NOTE | 2023-03-13 13:55 | ECHO_ITS ---
Patient Info Name: Mikael Hall Age: 77 years : 1945 Gender: Male Ht: 71 in Wt: 268 lbs BSA: 2.51 m2 HR: 77 bpm BP: 106 / 70 mmHg Technical Quality: Fair Exam Date: 03/13/2023 2:10 PM Exam Location: Echo Lab Patient Status: Outpatient Admit Date: 03/13/2023 Staff Ordering Physician: Polly Amaya PA-C Attending Provider: Polly Amaya PA-C Exam Type: CA echo doppler color flow Study Info Indications R06.02 - Shortness of breath Complete two-dimensional, color flow and Doppler transthoracic echocardiogram is performed. Summary 1. Complete two-dimensional, color flow and Doppler transthoracic echocardiogram is performed. 2. Left ventricular systolic function is normal, estimated at 55-60%. 3. Left ventricular chamber dimension is normal. 4. There is moderate concentric increased left ventricular wall thickness. 5. The left ventricular diastolic function is grade I diastolic dysfunction. 6. Left atrial chamber dimension is mildly enlarged. 7. There is mild aortic valve sclerosis. 8. There is trace tricuspid valve regurgitation. 9. The aortic root size at the sinus of Valsalva is mildly dilated at 4.2 cm. 10. The prox ascending aorta size is mildly dilated at 4.2 cm. Left Ventricle Tissue doppler E/e' is not performed. Left ventricular chamber dimension is normal. Left ventricular systolic function is normal, estimated at 55-60%. There is moderate concentric increased left ventricular wall thickness. The left ventricular diastolic function is grade I diastolic dysfunction. Right Ventricle Right ventricular systolic function is normal and with normal TAPSE 2.2 cm. Right ventricular chamber dimension is normal. Left Atria Left atrial chamber dimension is mildly enlarged. Right Atria Right atrial chamber dimension is normal. Aortic Valve The aortic valve is trileaflet. There is mild aortic valve sclerosis. There is no aortic valve stenosis. There is no aortic valve regurgitation. Pulmonic Valve There is no pulmonic regurgitation. Mitral Valve There is no mitral valve stenosis. There is no mitral valve regurgitation. Tricuspid Valve RVSP is not calculated as TR jet is inadequate. There is trace tricuspid valve regurgitation. Pericardium/Pleural There is no pericardial effusion. Inferior Vena Cava Normal inferior vena cava with >50% collapse upon inspiration consistent with normal right atrial pressure, 5 mmHg. Aorta The aortic root size at the sinus of Valsalva is mildly dilated at 4.2 cm. The prox ascending aorta size is mildly dilated at 4.2 cm. Left Ventricular Outflow Tract Name Value Normal LVOT 2D LVOT Diameter 2.2 cm LVOT Doppler LVOT Peak Gradient 4 mmHg LVOT Mean Gradient 2 mmHg LVOT VTI 20 cm LVOT VTI/AV VTI Ratio 0.6 LVOT Stroke Volume 78 ml LVOT CO 3.0 l/min LVOT CI 1.2 l/min/m2 Pulmonic Valve Name Value Normal
--- NOTE | 2023-03-13 15:29 | HOMEO2EVAL ---
Evaluation was performed at [facility] Home Oxygen Evaluation RC: Home Oxygen (O2) Evaluation Start: 03/13/23 15:27 Freq: Status: Active Protocol: RPE Activity Type Activity Date Activity User E-sign Co-sign Detail Recorded Client Recorded Date Recorded By Document 03/13/23 13:00 TRACE [email or web address] 03/13/23 15:29 TRACE Document 03/13/23 13:03 TRACE [email or web address] 03/13/23 15:29 TRACE Document 03/13/23 13:05 TRACE [email or web address] 03/13/23 15:29 TRACE Document 03/13/23 13:15 TRACE [email or web address] 03/13/23 15:29 TRACE 03/13/23 03/13/23 03/13/23 13:00 13:03 13:05 Home O2 Evaluation [Oxygen] -Test Phase Resting Exercise Exercise -Oxygen Delivery Room Air Room Air Nasal Cannula -Oxygen Flow Rate (L/min) 2 [Pulse Oximetry] -Pulse Oximetry (90-100 %) 94 87 L 90 [Pulse Rate] -Pulse Rate (60-100 beats/min) 66 114 H [Exercise] -Ambulation Distance (feet) 100 -Ambulation Distance (meters) 30.47 [Charges] -Evaluation Charges O2 Evaluation by Pulmonary 03/13/23 13:15 Home O2 Evaluation [Oxygen] -Test Phase Resting -Oxygen Delivery Room Air -Oxygen Flow Rate (L/min) [Pulse Oximetry] -Pulse Oximetry (90-100 %) 93 [Pulse Rate] -Pulse Rate (60-100 beats/min) 71 [Exercise] -Ambulation Distance (feet) -Ambulation Distance (meters) [Charges] -Evaluation Charges
--- NOTE | 2023-03-13 15:29 | PCRCNOTE ---
Home O2 eval faxed to office. pt has home O2 at 2 L with exertion and at night with CPAP. No changes made. Pt had jump in heart rate, walked approx 100 feet. Didn't walk further due to spike in heart rate. Mild SOB.
--- NOTE | 2023-03-13 17:26 | P.PCNPFT_ITS ---
PFT Procedure Performed PFT Procedure Performed Spirometry with Pre/Post Bronchodilator Plethysmography (Lung Vol) Diffusing Cap (DLCO) Flow Vol Loop PFT Interpretation This is a pulmonary function test with pre and post-bronchodilator spirometry, plethysmography and diffusing capacity. The test was performed and results interpreted in accordance with the 2019 and 2005 ATS/ERS Task Force guidelines respectively using the Global Lung Function Initiative-2012 reference equations. Patient demonstrated good effort and cooperation. Reproducibility criteria were met. The quality of the pre bronchodilator spirometry maneuver was Grade A and post bronchodilator spirometry maneuver was Grade A. Findings: Spirometry: There is decreased maximal expiratory airflow at all lung volumes with concave expiratory flow tracing. The contour the inspiratory flow tracing is normal. The pre bronchodilator FVC is 3.43 L, 84% predicted. The pre bronchodilator FEV1 is 2.35 L, 78% predicted. The pre bronchodilator FEV1: FVC ratio is 69%. The post bronchodilator FVC is 3.72 L, representing an 8% increase. The post bronchodilator FEV1 is 2.55 L, representing an 8% increase. The post bronchodilator FEV1: FVC ratio 69%. Plethysmography: The total lung capacity is 7.68 L, 106% predicted. The functional residual capacity is 3.87 L, 99% predicted. The residual volume is 3.63 L, 136% predicted. The slow vital capacity is 4.06 L. Diffusing capacity: The diffusing capacity unadjusted for hemoglobin and carboxyhemoglobin is 19.8, 80% predicted. The diffusing capacity adjusted for alveolar volume is 3.32, 92% predicted. In comparison to previous pulmonary function testing on 05/24/2021 the post bronchodilator FVC is unchanged from 4.00 L to 3.72 L. The post bronchodilator FEV1 is unchanged from 2.70 L to 2.55 L. The total lung capacity has increased from 6.63 L to 7.68 L. The functional residual capacity is unchanged from 3.54 L to 3.87 L. The residual volume is increased from 3.08 L to 3.63 L. The diffusing capacity unadjusted for hemoglobin and carboxyhemoglobin is unchanged from 17.7 to 19.8. The diffusing capacity adjusted for alveolar volume is unchanged from 3.26 to 3.32. Impression: The slow vital capacity is greater than forced vital capacity with a mildly concave expiratory tracing and a normal FEV1: FVC ratio with a normal FEV1. This is suggestive of small airways disease. There is no significant improvement after inhaling a single dose of albuterol. The increase in residual volume is consistent with air trapping from an obstructive abnormality. The diffusing capacity is normal. In comparison to previous pulmonary function testing on 05/24/2021 there is a g reater than anticipated time dependent increase in the total lung capacity and residual volume with no significant change in the FVC, FEV1, functional residual capacity or diffusing capacity. Clinical correlation is recommended.
== END 2023-03-13 12:02 | disposition home or self-care (01) ==
LOC: ANHPFT 12:02
PROVIDERS: PCP Physician Assistant; Visit Provider Physician Assistant
DX: J84.9 Interstitial pulmonary disease, unspecified (principal); Z99.81 Dependence on supplemental oxygen; R93.1 Abnormal findings on diagnostic imaging of heart and coronary circulation; I35.8 Other nonrheumatic aortic valve disorders; I07.1 Rheumatic tricuspid insufficiency
CPT/HCPCS: 71250; 93306; 94060; 94618; 94726; 94729

== ENCOUNTER 2023-03-13 12:03 | Outpatient (CLI) | payer MEDICARE, SELFPAY ==
--- NOTE | ~2023-03-13 | CT_ITS ---
CT Scan of the Chest without Contrast: Clinical Indication: Interstitial pulmonary disease Technique: Contiguous sections were acquired throughout the chest without intravenous contrast. Dose reduction technique was used on this scan by utilizing automated exposure control and iterative recon struction technique. The dose-length product (DLP) was 784.73 mGy-cm. COMPARISON: 05/16/2021 Findings: There is no evidence of any significant mediastinal, hilar or axillary lymphadenopathy. Coronary shu ry calcifications are present. Ascending aorta again measures 4.4 cm in diameter. There is no evidence of pleural or pericardial effusion. Suggestion of minimal subpleural reticulation noted. There are scattered tiny peripheral subpleural n odules. Images through the upper abdomen reveal no abnormalities. Chronic T12 compression fracture noted. Impression: Minimal chronic interstitial changes stable from prior exam. Stable 4.4 cm fusiform ascending aortic aneurysm. Reviewed, dictated and finalized at [facility]. PTION INTERVIEWER Impression: Minimal chronic interstitial changes stable from prior exam. Stable 4.4 cm fusiform ascending aortic aneurysm.
== END 2023-03-13 12:04 | disposition home or self-care (01) ==
LOC: ANHIMG 12:03
PROVIDERS: PCP Physician Assistant; Visit Provider Physician Assistant
DX: J84.9 Interstitial pulmonary disease, unspecified (principal); Z99.81 Dependence on supplemental oxygen
CPT/HCPCS: 71250

== ENCOUNTER 2023-05-22 07:53 | Outpatient (CLI) | payer MEDICARE, SELFPAY ==
--- NOTE | ~2023-05-22 | DEXA_ITS ---
Bone Density Report Name: MARCELA BELL Age: 77 Sex: Male Ethnicity: White Date of : 1945 Indication: screening for osteoporosis; cancer; asthma or emphysema; rheumatoid arthritis; Referring Provider: FELA SILVERIO Study: Bone densitometry was performed. Exam Date: May 22, 2023 Accession number: [id number] Bone Density: Region BMD T-score Z-score Classification AP Spine(L1, L2, L3) 0.875 -1.8 -0.7 Osteopenia Femoral Neck (Left) 0.873 -0.4 1.1 Normal Total Hip (Left) 1.017 -0.1 0.9 Normal Femoral Neck (Right) 0.876 -0.4 1.1 Normal Total Hip (Right) 1.038 0.0 1.0 Normal Total Hip Mean 1.027 -0.1 1.0 Normal World Health Organization criteria for BMD impression classify patients as: Normal (T-score at or above -1.0), Osteopenia (T-score between -1.0 and -2.5), or Osteoporosis (T-score at or below -2.5). 10-year Fracture Risk(1): Major Osteoporotic Fracture 6.1% Hip Fracture 1.4% Reported Risk Factors: [place] (), Neck BMD=0.873, BMI=38.0, rheumatoid arthritis (1) FRAX(R) Version 3.08. Fracture probability calculated for an untreated patient. Fracture probability may be lower if the patient has received treatment. Clinical Information Provided by Patient: Has rheumatoid arthritis Has used the following medications: Calcium Has the following medical conditions: Asthma or Emphysema, Cancer Patient maximum height was 70 Impression: The patient has low bone mass, based on the Total Spine T-score. The patient has an estimated ten-year risk of hip fracture of 1.4% and an estimated ten-year risk of major fracture of 6.1%, based on the WHO FRAX algorithm. Discussion: BONE DENSITY IS LOW AT ONE OR MORE SKELETAL SITES. This patient's lowest T-score is low at one or more skeletal sites. It meets the World Health Organization's (WHO) criteria for ?low bone mass? (T-score between -1.0 and -2.5). The patient's 10-year risk of fracture as calculated by FRAX is less than the threshold where pharmacological therapy is recommended by the National Osteoporosis Foundation (NOF). However, all treatment decisions require clinical judgment and consideration of individual patient factors, including patient preferences, comorbidities, previous drug use, risk factors not captured in the FRAX model (e.g., frailty, falls, vitamin D deficiency, increased bone turnover, interval significant decline in bone density) and possible under or overestimation of fracture risk by FRAX. The patient should follow a healthful lifestyle (good nutrition with adequate calcium and vitamin D, and appropriate weight-bearing exercise). Follow-Up: Consider repeating this study in 2 to 3 years to reassess this patient's status, or sooner if there is some new clinical indication. Reported by: RADHIKA on
== END 2023-05-22 07:54 | disposition home or self-care (01) ==
PROVIDERS: PCP Physician Assistant; Visit Provider Physician Assistant
DX: M85.89 Other specified disorders of bone density and structure, multiple sites (principal)
CPT/HCPCS: 77080

== ENCOUNTER 2024-01-20 14:39 | Outpatient (CLI) | payer MEDICARE, SELFPAY ==
--- NOTE | ~2024-01-20 | MR_ITS ---
EXAMINATION: MR cervical spine wo con DATE: 01/20/2024 15:40 INDICATION: Anesthesia of skin. TECHNIQUE: Magnetic resonance imaging (MRI) of the cervical spine was performed without intravenous c ontrast. COMPARISON: Cervical spine radiographs 01/12/24 FINDINGS: There is kyphosis of cervical spine. There is 2 mm anterolisthesis of C4 on C5 and C5 on C6 . Vertebral body heights are normal. There is mildly decreased disc height at C5-C6 and severely decr eased disc height at C6-C7 and C7-T1. The spinal cord signal intensity is normal. The following disc levels are specifically discussed: C2-C3: The disc does not extend beyond the endplate margin. There is no uncovertebral joint osteoarth ritis. There is severe bilateral facet joint osteoarthritis. There is no neural foraminal stenosis. T here is no central canal stenosis. C3-C4: The disc is bulging. There is mild left uncovertebral joint osteoarthritis. There is severe bi lateral facet joint osteoarthritis. There is mild bilateral neural foraminal stenosis. There is mild central canal stenosis. C4-C5: There is a central protrusion. There is mild bilateral uncovertebral joint osteoarthritis. The re is severe bilateral facet joint osteoarthritis. There is mild bilateral neural foraminal stenosis. There is mild central canal stenosis. C5-C6: The disc is bulging. There is moderate bilateral uncovertebral joint osteoarthritis. There is moderate right and severe left facet joint osteoarthritis. There is mild bilateral neural foraminal s tenosis. There is mild central canal stenosis. C6-C7: The disc is bulging. There is moderate right and severe left uncovertebral joint osteoarthriti s. There is mild right facet joint osteoarthritis. There is mild bilateral neural foraminal stenosis. There is mild central canal stenosis. C7-T1: The disc is bulging. There is severe bilateral uncovertebral joint osteoarthritis. There is se rey bilateral facet joint osteoarthritis. There is moderate right and severe left neural foraminal s tenosis. There is mild central canal stenosis. IMPRESSION: 1. Severe cervical spondylosis. Reviewed, dictated and finalized at location A.
== END 2024-01-20 14:40 | disposition home or self-care (01) ==
PROVIDERS: PCP Nurse Practitioner; Visit Provider Physician Assistant Surgical
DX: R20.0 Anesthesia of skin (principal); M47.892 Other spondylosis, cervical region
CPT/HCPCS: 72141

== ENCOUNTER 2024-10-08 11:35 | Outpatient (CLI) | payer MEDICARE, SELFPAY ==
--- OUTSIDE RECORDS SUMMARY | 2024-10-08 11:38 | XMS_ITS | Encounter Summary ---
Author Organization [facility] Address [address] [place] [address] Phone Care Team Providers Care Gis Database Administrator Name Role Phone Perez Dempsey MD Primary Care Provider [phone] Tesha Sotelo APRN, BOWLING BALL MOLD ASSEMBLER Unavailable + [phone] Reason for Visit * Reason Comments Medication Refill Encounter Details Date Type Department Care Team (Late st Contact Info) Description 07/23/2023 Refill [facility] [address] [place] [address] Tien Jama APRN, MANAGER SWITCH [address] [place] [address] Medication Refill Social History Tobacco Use Types Packs/Day Years Used Date Smoking Tobacco: Former Cigarettes 1 05/01/1978 - 02/29/2004 Smokeless Tobacco: Never Alcohol Use Standard Drinks/Week Comments Yes 0 (1 standard drink = 0.6 oz pur e alcohol) rare Sex and Gender Information Value Date Recorded Sex Assigned at Not on file Legal Sex Male 9:42 PM CDT Gender Identity Not on file Sexual Orientation Not on file documented as of this encounter Plan of Treatment Upcoming Encounters Date Type Department Care Team (Late st Contact Info) Description 02/17/2025 11:00 AM FIRST AID NURSE [facility] - [facility] - [place] [address] [place] [address] Tesha Sotelo APRN, BOWLING BALL MOLD ASSEMBLER [address] [place] [address] documented as of this encounter Visit Diagnoses Not on filedocumented in this encounter Care Teams Gis Database Administrator Relationship Specialty Start Date End Date Perez Dempsey MD [address] [place] [address] PCP - General Neurological Surgery 05/07/23 Tesha Sotelo APRN, BOWLING BALL MOLD ASSEMBLER [address] [place] [address] Nurse Practitioner Advanced Practice Nurse 06/18/23 documented as of this encounter
--- OUTSIDE RECORDS SUMMARY | 2024-10-08 11:38 | XMS_ITS | Encounter Summary ---
Author Organization [facility] Facility Care Team Providers Care Delivery Stock Clerk Name Role Phone Johan Palacios MD Primary Care Provider [phone] Johan Palacios MD Primary Care Provider [phone] Mauro PERSAUD MD, [facility] [phone] Encounter Details Date Type Department Care Team (Latest Contact Info) Description 05/31/2016 Orders Only [facility] ProviderMargaux MD [address] [place] [address] Social History Tobacco Use Types Packs/Day Years Used Date Smoking Tobacco: Never Alcohol Use Standard Drinks/Week Comments Yes 0 (1 standard drink = 0.6 oz pur e alcohol) Sex and Gender Information Value Date Recorded Sex Assigned at Not on file Legal Sex Male 9:15 AM PARLIAMENTARY ARCHIVIST Gender Identity Not on file Sexual Orientation Not on file documented as of this encounter Plan of Treatment Not on file documented as of this encounter Procedures Procedure Name Priority Date/Time Associated Diagnosis Comments PROCEDURE - RESULT 05/31/2016 12 :00 AM PARLIAMENTARY ARCHIVIST PROCEDURE - RESULT 05/31/2016 12 :00 AM PARLIAMENTARY ARCHIVIST documented in this encounter Results * PROCEDURE - RESULT (05/31/2016 12:00 AM PARLIAMENTARY ARCHIVIST) Narrative 05/31/2016 12:00 AM PARLIAMENTARY ARCHIVIST Ordered by an unspecified provider. Historical Provider Final Res ult * PROCEDURE - RESULT (05/31/2016 12:00 AM PARLIAMENTARY ARCHIVIST) Narrative 05/31/2016 12:00 AM PARLIAMENTARY ARCHIVIST Ordered by an unspecified provider. us Historical Provider Final Res ult documented in this encounter Visit Diagnoses Not on filedocumented in this encounter Care Teams Delivery Stock Clerk Relationship Specialty Start Date End Date Johan Palacios MD [address] [place] [address] PCP - General 06/28/16 Johan Palacios MD [address] [place] [address] PCP - General 10/09/15 06/27/16 Irving Wade III, MD [address] [place] [address] Rheumatology 11/01/16 documented as of this encounter
--- OUTSIDE RECORDS SUMMARY | 2024-10-08 11:38 | XMS_ITS | Encounter Summary ---
Author Organization [facility] Address [address] [facility] [place] [address] Care Team Providers Care Operations Manager Assistant Name Role Phone Johan Palacios DO Primary Care Provider Abhijeet Dove PA-C Primary Care Provide r Encounter Details Date Type Department Care Team (Late st Contact Info) Description 12/26/2021 Lab Requisition [facility] [address] [facility] [place] [id number] Kal Farr MD [address] [place] [address] Social History Tobacco Use Types Packs/Day Years Used Date Smoking Tobacco: Never Assessed Sex and Gender Information Value Date Recorded Sex Assigned at Not on file Legal Sex Male 4: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 CLERK Gender Identity Not on file Sexual Orientation Not on file documented as of this encounter Plan of Treatment Not on file documented as of this encounter Procedures Procedure Name Priority Date/Time Associated Diagnosis Comments DERMATOPATHOLOGY Routine 12/25/2021 3:33 AM CDT documented in this encounter Results * DERMATOPATHOLOGY (12/25/2021 3:33 AM CDT) Case Report Dermatopathology Report Case: [id number] Authorizing Provider: Kal Farr MD Collected: 12/25/2021 03:33 AM Ordering Location: [facility] Received: 12/26/2021 02:28 PM Pathologist: Monique Alvarez MD Specimens: A) - Skin, left parietal scalp B) - Skin, right forehead 2 3:35 PM T DERMATOPATHOLOGY LABORATORY Final Diagnosis Specimen A. 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 The specimen consists of a shave biopsy measuring [id number]. Jar 0. Specimen B: Received is one formalin filled container labeled with the patient's name and designated right forehead. The specimen consists of a shave biopsy measuring [id number]. Jar 0. 2 3:[address] [facility] DERMATOPATHOLOGY LABORATORY Microscopic Description Specimen A. SKIN, left parietal scalp: The epidermis shows parakeratosis, full thickness disorderly maturation of keratinocytes, mitoses at different levels, and dyskeratotic cells. Specimen B. SKIN, right forehead: The epidermis shows parakeratosis, full thickness disorderly maturation of keratinocytes, mitoses at different levels, and dyskeratotic cells. Adnexal extension of the lesion is seen. 2 3:35 PM CDT DERMATOPATHOLOGY LABORATORY Disclaimer An external and internal positive and negative controls are appropriate for the histochemical, immunohistochemical and immunofluorescence stain(s) in this case (if any), except where stated explicitly. The performance characteristics of the stain(s) cited in this report were developed and its performance characteristic determined by the Dermatopathology Laboratory at [facility], directed by Dr. Jesu Westbrook. These tests need not be, and therefore are not, approved by the [place] Food and Drug Administration. The tests are used for clinical purposes. Billing Codes Specimen Charges Stain Charges 06805 46899 1 1 2 3:35 PM CDT DERMATOPATHOLOGY LABORATORY Embedded Images 2 3:35 PM CDT DERMATOPATHOLOGY LABORATORY Pathology/Cytology TISSUE SPECIMEN FROM SKIN / Unknown 12/25/2021 3:33 AM CDT 12/26/2021 2:28 PM CDT Miscellaneous samples (specimen) TISSUE SPECIMEN FROM SKIN / Unknown 12/25/2021 3:33 AM CDT 12/26/2021 2:28 PM CDT Kal Farr MD LAB - PATHOLOGY/CYTOLOGY ORD ERABLES Final Result DERMATOPATHOLOGY LABORATORY [facility] - Department of Dermatology [facility] Medicine [address] [place] [address], [address] [phone] documented in this encounter Visit Diagnoses Not on filedocumented in this encounter Care Teams Operations Manager Assistant Relationship Specialty Start Date End Date Johan Palacios DO [address] [facility] [address] [place] [address] PCP - General Internal Medicine 03/09/15 02/05/22 Abhijeet Dove PA-C [address] [facility] [address] [place] [address] PCP - General 02/06/22 documented as of this encounter
--- OUTSIDE RECORDS SUMMARY | 2024-10-08 11:38 | XMS_ITS ---
Author Name Auto Generated, Auto Generated Organization [facility] Address [address] [place] [address] Phone [phone] Care Team Providers Care Clerk Typist Name Role Phone Abhijeet Dove Unavailable [phone] Frandy Stubbs Unavailable Nabor Hampton Unavailable Rm Solis Unavailable [phone] Functional Status No Results Mental Status No Results Allergies and Intolerances Name Onset Date Reaction Severity No Known Allergies (Allergy) FriJun 03 17:43:00 EST 2022 Encounters Program Name Primary Diagnosis Admission Date/Time Dis charge Date/Time null FriDec 28 20:00 :00 EDT [facility] FriNov 04 20:00:00 EDT 2023Dec 29 19:59:00 EDT 2023 Medications Medication Directions Start Date End Date DULoxetine 20 mg capsule,delayed release 1 CAPSULE CAPSULE,DELAYED RELEASE (ENTERIC COATED) Oral 2 Times Daily Indication: DEPRESSION FriJun 05 17:20:00 EST 2022Jun 05 17:21:00 EST 2022 DULoxetine 30 mg capsule,delayed release 1 cap CAPSULE,DELAYED RELEASE (ENTERIC COATED) Oral 1 Time Daily Indication: depression FriJun 05 17:22:00 EST 2022Jun 07 01:00:00 EST 2022 Trelegy Ellipta 100 mcg-62.5 mcg-25 mcg powder for inhalation 1 puff BLISTER, WITH INHALATION DEVICE Inhalation 1 Time Daily Indication: COPD FriJun 04 01:00:00 EST 2022Jun 07 01:00:00 EST 2022 albuterol sulfate HFA 90 mcg/actuation aerosol inhaler 2 PUFFS HFA AEROSOL WITH ADAPTER (GRAM) Inhalation PRN Every 4 Hours Indication: SHORTNESS OF BREATH FriJun 03 17:30:00 2022Jun 07 01:00:00 EST 2022 alendronate 70 mg tablet 1 TABLET TABLET Oral 1 Time Weekly Indication: OSTEOPOROSIS TAKE ON FridayJun 03 17:30:00 EST 2022Jun 07 01:00:00 EST 2022 aspirin 81 mg tablet,delayed release 1 TABLET TABLET, DELAYED RELEASE (ENTERIC COATED) Oral 1 Time Daily Indication: PROPHYLAXIS FriJun 03 17:30:00 EST 2022Jun 07 01:00:00 EST 2022 atorvastatin 20 mg tablet 1 TABLET TABLE T Oral Hour Of Sleep Indication: HYPERLIPIDEMIA FriJun 03 17:30:00 2022Jun 07 01:00:00 EST 2022 busPIRone 10 mg tablet 1 TABLET TABLET O ral 2 Times Daily Indication: ANXIETY FriJun 03 17:30:00 EST 2022Jun 07 01:00:00 EST 2022 calcium carbonate 600 mg-vitamin D3 5 mcg (200 unit) tablet 1 TABLET TABLET Oral 1 Time Daily Indication: SUPPLEMENT WITH BREAKFAST FriJun 03 17:30:00 EST 2022Jun 07 01:00:00 EST 2022 cyanocobalamin (vit B-12) 1,000 mcg tablet 1 TABLET TABLET Oral 1 Time Daily Indication: SUPPLEMENT FriJun 03 17:30:00 EST 2022Jun 07 01:00:00 EST 2022 DULoxetine 20 mg capsule,delayed release 1 CAPSULE CAPSULE,DELAYED RELEASE (ENTERIC COATED) Oral 2 Times Daily Indication: DEPRESSION FriJun 03 17:30:00 EST 2022Jun 05 17:21:00 EST 2022 Trelegy Ellipta 100 mcg-62.5 mcg-25 mcg powder for inhalation 1 PUFF BLISTER, WITH INHALATION DEVICE Inhalation 1 Time Daily Indication: COPD FriJun 03 17:30:00 EST 2022Jun 04 01:13:00 EST 2022 gabapentin 400 mg capsule 1 CAPSULE CAPS ULE Oral 3 Times Daily Indication: NEUROPATHY FriJun 03 17:30:00 EST 2022Jun 07 01:00:00 EST 2022 isosorbide mononitrate 10 mg tablet 1 TABLET TABLET Oral 1 Time Daily Indication: HYPERTENSION FriJun 03 17:30:00 EST 2022Jun 07 01:00:00 EST 2022 metoprolol succinate ER 25 mg tablet,extended release 24 hr 25MG TABLET, EXTENDED RELEASE 24 HR Oral 1 Time Daily Indication: HYPERTENSION FriJun 03 17:30:00 EST 2022Jun 07 01:00:00 EST 2022 Fish OiL 1,000 mg (120 mg-180 mg) capsule 1 CAPSULE CAPSULE Oral 1 Time Daily Indication: SUPPLEMENT FriJun 03 17:30:00 EST 2022Jun 07 01:00:00 EST 2022 sertraline 100 mg tablet 1 TABLET TABLET Oral 1 Time Daily Indication: DEPRESSION FriJun 03 17:30:00 EST 2022Jun 05 17:23:00 EST 2022 Rinvoq 15 mg tablet,extended release 1 TABLET TABLET, EXTENDED RELEASE 24 HR Oral 1 Time Daily Indication: RHEUMATOID ARTHRITIS FriJun 03 17:30:00 EST 2022Jun 07 01:00:00 EST 2022 Problems Active Concerns * Encounter for other orthopedic aftercare* Code: * Start Date: FriJan 01 00:00:00 EDT 2021 * End Date: * Text: * Spondylosis without myelopathy or radiculopathy, cervical region* Code: * Start Date: FriJan 01 00:00:00 EDT 2021 * End Date: * Text: * Arthrodesis status* Code: * Start Date: FriJun 03 00:00:00 EST 2022 * End Date: * Text: * Spinal stenosis, lumbar region without neurogenic claudication* Code: * Start Date: FriJun 03 00:00:00 EST 2022 * End Date: * Text: * Other postprocedural complications and disorders of digestive system* Code: * Start Date: FriJun 03 00:00:00 EST 2022 * End Date: * Text: * Ileus, unspecified* Code: * Start Date: FriJun 03 00:00:00 EST 2022 * End Date: * Text: * Other intestinal obstruction unspecified as to partial versus complete obstruction* Code: * Start Date: FriJun 03 00:00:00 EST 2022 * End Date: * Text: * Chronic obstructive pulmonary disease with (acute) lower respiratory infection * Code: * Start Date: FriJun 03 00:00:00 EST 2022 * End Date: * Text: * Pneumonia, unspecified organism* Code: * Start Date: FriJun 03 00:00:00 EST 2022 * End Date: * Text: * Rheumatoid arthritis, unspecified* Code: * Start Date: FriJun 03 00:00:00 2022 * End Date: * Text: * Unspecified osteoarthritis, unspecified site* Code: * Start Date: FriJun 03 00:00:00 EST 2022 * End Date: * Text: * Major depressive disorder, single episode, unspecified* Code: * Start Date: FriJun 03 00:00:00 EST 2022 * End Date: * Text: * Generalized anxiety disorder* Code: * Start Date: FriJun 03 00:00:00 EST 2022 * End Date: * Text: * Essential (primary) hypertension* Code: * Start Date: FriJun 03 00:00:00 2022 * End Date: * Text: * Atherosclerotic heart disease of redding coronary artery without angina pectoris* Code: * Start Date: FriJun 03 00:00:00 EST 2022 * End Date: * Text: * Mixed hyperlipidemia* Code: * Start Date: FriJun 03 00:00:00 EST 2022 * End Date: * Text: * Age-related osteoporosis without current pathological fracture* Code: * Start Date: FriJun 03 00:00:00 EST 2022 * End Date: * Text: * Deficiency of other specified B group vitamins* Code: * Start Date: FriJun 03 00:00:00 EST 2022 * End Date: * Text: * Obstructive sleep apnea (adult) (pediatric)* Code: * Start Date: FriJun 03 00:00:00 EST 2022 * End Date: * Text: * Dependence on other enabling machines and devices* Code: * Start Date: FriJun 03 00:00:00 EST 2022 * End Date: * Text: * Unspecified hearing loss, bilateral* Code: * Start Date: FriJun 03 00:00:00 EST 2022 * End Date: * Text: * Personal history of malignant neoplasm of prostate* Code: * Start Date: FriJun 03 00:00:00 EST 2022 * End Date: * Text: * FCI (current) use of aspirin* Code: * Start Date: FriJun 03 00:00:00 EST 2022 * End Date: * Text: * FCI (current) use of oral hypoglycemic drugs* Code: * Start Date: FriJun 03 00:00:00 EST 2022 * End Date: * Text: * Presence of artificial knee joint, bilateral* Code: * Start Date: FriJun 03 00:00:00 EST 2022 * End Date: * Text: * Acquired absence of other genital organ(s)* Code: * Start Date: FriJun 03 00:00:00 EST 2022 * End Date: * Text: * Weakness* Code: * Start Date: FriJun 03 00:00:00 EST 2022 * End Date: * Text: * Muscle weakness (generalized)* Code: * Start Date: FriJun 07 00:00:00 EST 2022 * End Date: * Text: * Low back pain, unspecified* Code: * Start Date: FriNov 05 00:00:00 EDT 2023 * End Date: * Text: * Other low back pain* Code: * Start Date: FriNov 05 00:00:00 EDT 2023 * End Date: * Text: Reason for Referral Past Medical History
--- OUTSIDE RECORDS SUMMARY | 2024-10-08 11:38 | XMS_ITS | Referral Summary ---
Author Organization [facility] [address] Address [address] [place] [address] Phone Care Team Providers Care Weight Clerk Name Role Phone Johan Palacios MD Primary Care Provider [phone] Mauro PERSAUD MD, [facility] [phone] Allergies No known active allergies Medications azelastine (ASTELIN) 137 mcg (0.1 %) nasal spray spray 2 spray by intranasal route 2 times every day in each nostril 0 spray 0 6 Active cyclobenzaprine (FLEXERIL) 10 mg tablet take 1 tablet by oral route 3 times every day 0 0 7 Active tiotropium (SPIRIVA) 18 mcg per inhalation capsule Place 1 capsule into inhaler and inhale daily. Active leflunomide (ARAVA) 20 mg tablet TAKE 1 TABLET BY MOUTH DAILY 90 tablet 8 Active alendronate (FOSAMAX) 70 mg tablet SEE NOTES 12 tablet 8 Active hydroxychloroqu ine (PLAQUENIL) 200 mg tablet TAKE 1 TABLET BY MOUTH TWICE DAILY 180 tablet 8 Active AMOXICILLIN 500 mg capsule TAKE FOUR CAPSULES BY MOUTH 1 HOUR BEFORE APPOINTMENT 0 8 Active diclofenac-miSO PROStol DR (ARTHROTEC 75) 75-200 mg-mcg EC tablet 2 times daily. Activ e calcium carbonate-vitam in D3 250-125 mg-unit tablet Activ e [id number] -lycopen-lutein (CENTRUM SILVER) 0.4-300-250 mg-mcg-mcg tabletIndicatio ns:Vitamin Deficiency Prevention Active citalopram (CeleXA) 40 mg tablet TK 1 T PO QD 1 8 Active FLUAD 8631-0528, 65 YR UP,,PF, 45 mcg (15 mcg x 3)/0.5 mL syringe ADM 0.5ML IM UTD 0 8 Active fluocinonide (LIDEX) 0.05 % gel 2 times daily. Activ e beclomethasone (QVAR) 40 mcg/actuation inhaler Active polyethylene glycol-electrol ytes (NULYTELY) 420 gram solutionIndicat ions:Bowel Evacuation MIX AND DRINK UTD 0 8 Active cholecalciferol (VITAMIN D-3) 2,000 unit tablet take one by mouth daily 1000 u Active XELJANZ XR 11 mg tablet extended release 24 hr Take one tablet by mouth once daily. 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 U/S from 10/14 with moderate synovitis and power doppler. Assessment & Plan (07/30/2017 10:25 AM CDT): Moderate cdai. Will incr remicade to 400mg. f/u 3months. Assessment & Plan (03/05/2017 12:29 PM HOSPITAL PHARMACIST): Patient disease activity is moderate. Patient is to continue ARAVA and HCQ. Discussed biologics but patient is hesitant to start this type of medication. After reviewing drug information and SE patient was agreeable to start a biologic. Will get remicade approved for this patient. Will check routine labs today. Patient seen with Dr. Wade. Assessment & Plan (12/04/2016 11:42 AM CDT): Patient disease activity is moderate. Patient is to continue HCQ and ARAVA. Will give ARAVA more time. Will check routine labs today. Assessment & Plan (10/25/2016 12:10 PM CDT): Patient with u/s that shows moderate synovitis and CDAI with moderate disease activity. Will add ARAVA.20 mg/d. Discussed SE with this patient. He acknowledged understanding. He is to continue HCQ. 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 Assessment & Plan (12/04/2016 11:42 AM CDT): Will continue to monitor the patient with routine labs. Assessment & Plan (10/25/2016 12:10 PM CDT): Will check labs at the next OV. Rash 10/25/2016 Assessment & Plan (10/25/2016 12:11 PM CDT): Will continue to observe at this time. 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 Rheumatoid arthritis 02/09/2010 Malignant neoplasm of prostate 02/09/2010 Anaclitic depression 11/13/2009 Anxiety 11/13/2009 Social History Tobacco Use Types Packs/Day Years Used Date Smoking Tobacco: Former Cigarettes Smokeless Tobacco: Never Tobacco Cessation:Counseling Given: Not Answered Alcohol Use Standard Drinks/Week Comments Yes 0 (1 standard drink = 0.6 oz pur e alcohol) Personal Safety Answer Date Recorded Getting School Help Needed Not on file 04/24 Sex and Gender Information Value Date Recorded Sex Assigned at Not on file Legal Sex Male 9:15 AM HOSPITAL PHARMACIST Gender Identity Not on file Sexual Orientation Not on file Last Filed Vital Signs Vital Sign Reading Time Taken Comments Blood Pressure 121/74 07/17/2023 12:57 PM CDT Pulse 52 07/17/2023 12:57 PM CDT Temperature 36.6 C (97.8 F) 07/17/2023 12:57 PM CDT Respiratory Rate 18 07/17/2023 12:57 PM CDT Oxygen Saturation 94% 07/17/2023 12:57 PM CDT Inhaled Oxygen Concentration - - Weight 116.1 kg (256 lb) 07/17/2023 12:57 PM CDT Height 175.3 cm (5' 9) 07/17/2023 12:57 PM CDT Body Mass Index 37.8 07/17/2023 12:57 PM CDT Plan of Treatment Not on file Insurance [employer] HMO/POS [facility] T MEDICARE T MEDICARE Care Teams Weight Clerk Relationship Specialty Start Date End Date Johan Palacios MD [address] [address] PCP - General 06/28/16 Irving Wade III, MD [address] [place] [address] [facility] 11/01/16
--- OUTSIDE RECORDS SUMMARY | 2024-10-08 11:38 | XMS_ITS | Encounter Summary ---
Author Organization [facility] Care Team Providers Care Poker Machine Attendant Name Role Phone Johan Palacios MD Primary Care Provider [phone] Johan Palacios MD Primary Care Provider [phone] Mauro PERSAUD MD, [facility] [phone] Encounter Details Date Type Department Care Team (Latest Contact Info) Description 05/23/2016 Orders Only [facility] CLINCONV ProviderMargaux MD [address] [place] [address] Social History Tobacco Use Types Packs/Day Years Used Date Smoking Tobacco: Never Alcohol Use Standard Drinks/Week Comments Yes 0 (1 standard drink = 0.6 oz pur e alcohol) Sex and Gender Information Value Date Recorded Sex Assigned at Not on file Legal Sex Male 9:15 AM ORACLE DRM CONSULTANT Gender Identity Not on file Sexual Orientation Not on file documented as of this encounter Plan of Treatment Not on file documented as of this encounter Procedures Procedure Name Priority Date/Time Associated Diagnosis Comments PROCEDURE - RESULT 05/23/2016 12 :00 AM ORACLE DRM CONSULTANT PROCEDURE - RESULT 05/23/2016 12 :00 AM ORACLE DRM CONSULTANT PROCEDURE - RESULT 05/23/2016 12 :00 AM ORACLE DRM CONSULTANT documented in this encounter Results * PROCEDURE - RESULT (05/23/2016 12:00 AM ORACLE DRM CONSULTANT) Narrative 05/23/2016 12:00 AM ORACLE DRM CONSULTANT Ordered by an unspecified provider. Historical Provider MD Final Res ult * PROCEDURE - RESULT (05/23/2016 12:00 AM ORACLE DRM CONSULTANT) Narrative 05/23/2016 12:00 AM ORACLE DRM CONSULTANT Ordered by an unspecified provider. Historical Provider Final Res ult * PROCEDURE - RESULT (05/23/2016 12:00 AM ORACLE DRM CONSULTANT) Narrative 05/23/2016 12:00 AM ORACLE DRM CONSULTANT Ordered by an unspecified provider. Historical Provider Final Res ult documented in this encounter Visit Diagnoses Not on filedocumented in this encounter Care Teams Poker Machine Attendant Relationship Specialty Start Date End Date Johan Palacios MD [address] [place] [address] PCP - General 06/28/16 Johan Palacios MD [address] [place] [address] PCP - General 10/09/15 06/27/16 Irving Wade III, MD [address] [place] [address] Rheumatology 11/01/16 documented as of this encounter
--- OUTSIDE RECORDS SUMMARY | 2024-10-08 11:38 | XMS_ITS | Clinical Summary ---
Author Organization [facility] Address [address] [place] [address] Phone Care Team Providers Care Immigration Services Officer Name Role Phone Johan Palacios DO Primary Care Provider [phone] Encounters Date Type Department Care Team Description 09/14/2024 External Device Data [facility] ABSTRACTION Provider, Abstract 08/24/2024 External Device Data [facility] ABSTRACTION Provider, Abstract 08/24/2024 External Device Data [facility]CTION Provider, Abstract 08/18/2024 External Device Data [facility] ABSTRACTION Provider, Abstract 08/17/2024 External Device Data [facility] ABSTRACTION Provider, Abstract from Last 3 Months Social History Tobacco Use Types Packs/Day Years Used Date Smoking Tobacco: Never Assessed Sex and Gender Information Value Date Recorded Sex Assigned at Not on file Legal Sex Male 7:55 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 Gender Identity Not on file Sexual Orientation Not on file Plan of Treatment Health Maintenance Due Date Last Done Comments DTAP/TDAP/TD VACCINES (1 - Tdap) 06/23/1964 PNEUMOCOCCAL VACCINE 50+ YEARS (1 of 2 - PCV) 06/22/18 63 ZOSTER VACCINE (1 of 2) 1994 RSV VACCINE (60+ or ) (1 - 1-dose 75+ series) 06/23/2019 INFLUENZA VACCINE (#1) 2024 01/07/2020 Medical Devices Implanted Type Area Sheet Metal Welder Device Identifier Shelf Expiration Date Model / Serial / Lot Shrapnel In Leg Description:Need to have pat ient get an x-ray and then cleared by radiologist prior to MRI-mariana 04/17/22 Insurance AETNA PPO MCR AETNA PPO MCR Care Teams Immigration Services Officer Relationship Specialty Start Date End Date Johan Palacios DO [address] [facility] [address] [place] [id number] PCP - General Internal Medicine 04/08/22
--- OUTSIDE RECORDS SUMMARY | 2024-10-08 11:38 | XMS_ITS | Encounter Summary ---
Author Organization [facility] Address [address] [place] [address] Phone Care Team Providers Care Patching Machine Operator Name Role Phone Perez Dempsey MD Primary Care Provider [phone] Tesha Sotelo APRN, SYSTEMS SPECIALIST Unavailable + [phone] Reason for Visit * Reason Comments Medication Refill Encounter Details Date Type Department Care Team (Late st Contact Info) Description 02/10/2024 Refill [facility] [address] [place] [address] Tien Jama APRN, EDUCATION ANALYST [address] [place] [address] Medication Refill Social History Tobacco Use Types [...] st Contact Info) Description 02/17/2025 11:00 AM WATER SANDER [facility] - [place] [address] [place] [address] Tesha Sotelo APRN, SYSTEMS SPECIALIST [address] [place] [address] documented as of this encounter Visit Diagnoses Not on filedocumented in this encounter Care Teams Patching Machine Operator Relationship Specialty Start Date End Date Perez Dempsey MD [address] [place] [address] PCP - General Neurological Surgery 05/07/23 Tesha Sotelo APRN, SYSTEMS SPECIALIST [address] [place] [address] Nurse Practitioner Advanced Practice Nurse 06/18/23 documented as of this encounter
--- OUTSIDE RECORDS SUMMARY | 2024-10-08 11:38 | XMS_ITS ---
Author Name Auto Generated, Auto Generated Organization [facility] Address [address] [place] [address] Phone [phone] Care Team Providers Care Coffee Taster Name Role Phone Abhijeet Dove Unavailable [phone] Frandy Stubbs Unavailable [phone] Nabor Hampton Unavailable Rm Solis Unavailable Functional Status No Results Mental Status No [...] * Text: * Atherosclerotic heart disease of [place] coronary artery without angina pectoris* Code: * [...] 2022 * End Date: * Text: * retirement (current) use of aspirin* Code: * Start Date: FriJun 03 00:00:00 EST 2022 * End Date: * Text: * retirement (current) use of oral hypoglycemic drugs* Code: [...]
--- OUTSIDE RECORDS SUMMARY | 2024-10-08 11:38 | XMS_ITS | Clinical Summary ---
Author Organization [facility] Address [address] [place] [address] Phone Care Team Providers Care Exhaust Machine Operator Name Role Phone Perez Dempsey MD Primary Care Provider [phone] Tesha Sotelo APRN, TRAFFIC ASSISTANT Unavailable [phone]- [phone] Allergies No known active allergies Medications Orlistat 60 MG Capsule Take 120 mg by mouth 2 times daily. Active ALBUTEROL SULFATE IN take by inhalation. Active Cyanocobalamin (Vitamin B-12) 5000 MCG SL Tablet by Sublingual route. Active Magnesium Oxide 400 MG Capsule Take by mouth. Active isosorbide mononitrate (ISMO, MONOKET) 10 MG Tablet Take 10 mg by mouth 2 times daily. Active metoprolol Succinate (TOPROL-XL) 25 MG TABLET SR 24 HR Take 25 mg by mouth daily. Active Budeson-Glycopyrro l-Formoterol (Breztri Aerosphere) 160-9-4.8 MCG/ACT Aerosol take by inhalation. Active alendronate (Fosamax) 70 MG Tablet Take 70 mg by mouth every 7 days. Active aspirin EC 81 MG Tablet Delayed Response Take 81 mg by mouth daily. Active atorvastatin (LIPITOR) 20 MG Tablet Take 20 mg by mouth daily. Active Calcium Carb-Cholecalcifer ol (CALCIUM 600 + D PO) Take by mouth. Activ e fish oil-omega-3 fatty acids 1000 MG Capsule Take 1,000 mg by mouth daily. Active Upadacitinib ER (Rinvoq) 15 MG TABLET SR 24 HR Take by mouth. Active gabapentin (NEURONTIN) 600 MG TabletIndications: Peripheral polyneuropathy Take 1 Tablet by mouth 3 times daily. 270 Tablet 3 Active Active Problems No known active problems Encounters Date Type Department Care Team Description 08/18/2024 11:00 AM CDT Office Visit [facility] - Neurology [place] [address] [place] [phone] Tesha Sotelo, POWER LINEWORKER, TRAFFIC ASSISTANT Peripheral polyneuropathy (Primary Dx); Numbness and tingling in left arm Discharge Disposition: Discharged to home or Selfcare 08/16/2024 Travel from Last 3 Months Immunizations Immunization Administration Dates Next Due Hepatitis A Vaccine 07/18/1999 Influenza Vaccine 12/28/2014 Influenza Vaccine, Quadrivalent, PF 01/07/2020 Influenza, Quadrivalent, Adjuvanted 01/05/2023 Influenza, Trivalent, Adjuvanted, PF 12/28/2018, 01/01/2018 Influenza, high-dose, trivalent, PF 12/18/2016,1 Pneumococcal Vaccine Adult - 23 Valent 9 RSV, Bivalent, Protein Subun it Rsvpref, Diluent Reconstit (Abrysvo) 01/22/2023 TDAP Vaccine 11/23/2008 Zoster Vaccine Recombinant 05/05/2022,04/03/2021 Family History Medical History Relation Name Comments Cancer Brother Alzheimer's Disease Father Cancer Father Asthma Mother Relation Name Status Comments Brother Alive Father Mother Sister Alive Social History Tobacco Use Types Packs/Day Years Used Date Smoking Tobacco: Former Cigarettes 1 05/01/1978 - 02/29/2004 Smokeless Tobacco: Never Tobacco Cessation:Counseling Given: Not [...] Sign Reading Time Taken Comments Blood Pressure 118/68 08/18/2024 10:51 AM CDT Pulse 64 08/18/2024 10:51 AM CDT Temperature 36.5 C (97.7 F) 08/18/2024 10:51 AM CDT Respiratory Rate 16 08/18/2024 10:5 1 AM CDT Oxygen Saturation 90% 08/18/2024 10: 51 AM CDT Inhaled Oxygen Concentration - - Weight 109.4 kg (241 lb 3.2 oz) 025 10:51 AM CDT Height 181.9 cm (5' 11.6) 08/18/2024 1 0:51 AM CDT Body Mass Index 33.08 08/18/2024 10:51 AM CDT Plan of Treatment Upcoming Encounters Date Type Department Care Team (Late st Contact Info) Description 02/17/2025 11:00 AM SINGLE CORNER CUTTER [facility] - [facility]rology - [place] [address] [place] [address] Tesha Sotelo APRN, TRAFFIC ASSISTANT [address] [place] [address] Health Maintenance Due Date Last Done Comments Hepatitis C Virus (HCV) Screening 1945 Pneumococcal Immunization (50+ years) (2 of 2 - PCV) 11/23/2009 11/23/2008 Td Immunization Every 10 Years (Adults With 1 Tdap) 11/23/2018 11/23/2008 SARS-COV-2 Immunization ( season) 2024 12/08/2023, 01/05/2023, 09/23/2022, Additional history exists Influenza Immunization (#1) 2024 09/0 11/2023, 01/05/2023, 01/07/2020, Additional history exists DTaP/Tdap/Td Immunization Discontinued 11/23/2008 Zoster Immunization Completed 05/05/2022, Respiratory Syncytial Virus (RSV) Immunization (Adult) Completed 01/22/2023 Hepatitis B Immunization Aged Out No longer eligible based on patient's age to complete this topic Human Papillomavirus (HPV) Immunization Aged Out No longer eligible based on patient's age to complete this topic Meningococcal Immunization (ACWY) Aged Out No longer eligible based on patient's age to complete this topic Rotavirus Immunization Aged Out No lo nger eligible based on patient's age to complete this topic Insurance MEDICARE C AETNA Care Teams Exhaust Machine Operator Relationship Specialty Start Date End Date Perez Dempsey MD [address] [place] [address] PCP - General Neurological Surgery 05/07/23 Tesha Sotelo APRN, TRAFFIC ASSISTANT [address] [place] [address] Nurse Practitioner Advanced Practice Nurse 06/18/23
--- OUTSIDE RECORDS SUMMARY | 2024-10-08 11:38 | XMS_ITS | Continuity of Care Document ---
Author Name [facility] Organization [facility] Care Team Providers Care Shoelace Tipping Machine Operator Name Role Phone [facility] Unavailable Unavailable Problems Combined list of problems from Department of [facility] and [facility] facilities. It does not include entries that were removed or entered in error. Problem Status Onset Date Problem Type Date of Resolution Comments Source Arthritis, Rheumatoid * (ICD-9-CM 714.0) Active Condition [facility] Duodenitis, without mention of hemorrhage (ICD-9-CM 535.60) Active Condition [facility] Exposure to potentially hazardous substance ([facility] [id number]) Active Condition Sep 29 Entered By: DORIS FRITZ Comment: Entered automatically through LUDWIG Problem List documentation program [facility] Generalized Anxiety Disorder Active Condition [facility] Low back pain (SNOMED CT 410227690) Active Condition [facility] Major Depression, recurrent (ICD-9-CM 296.30) Active Condition [facility] Prostate Cancer (ICD-9-CM 185.) Active Condition [facility] Diagnosis: ICD-10-CM H90.3 Sensorineural hearing loss, bilateral Active Diagnosis [facility] Diagnosis: ICD-10-CM C61 Malignant neoplasm of prostate Active Diagnosis [facility] Diagnosis: ICD-10-CM H33.8 Other retinal detachments Active Diagnosis [facility] Diagnosis: ICD-10-CM H35.343 Macular cyst, hole, or pseudohole, bilateral Active Diagnosis [facility] Diagnosis: ICD-10-CM 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 Medication Details Route Status Patient Instructions Prescription Expires Prescription Number Last Dispense Date Ordering Provider Order Date Order Qty Source ACETAMINOPH EN 325MG TAB TAKE TWO TABLETS BY MOUTH FOUR TIMES A DAY ORAL ACTIVE KRUMM,SALLY HAMMOND B 2024 [facility] ALBUTEROL SO4 90MCG/ACTUA T (CFC-F) INHL,ORAL,8 .5GM INHALE 2 PUFFS BY ORAL INHALATI ON FOUR TIMES A DAY RESPIR ATORY (INHAL ATION) ACTIVE KRUMMSALLY B 2024 [facility] ALENDRONATE 70MG TAB TAKE ONE TABLET BY MOUTH EVERY WEEK ORAL ACTIVE KRUMMSALLY 2024 [facility] ASPIRIN 81MG TAB,CHEWABL E CHEW AND SWALLOW ONE TABLET BY MOUTH ONCE A DAY ORAL ACTIVE KRUMMSALLY 2024 [facility] ATORVASTATI N CA 40MG TAB TAKE ONE-HALF TABLET BY MOUTH EVERY EVENING ORAL ACTIVE KRUMMSALLY B 2024 [facility] BUDESONIDE 160MCG/FORM OTEROL FUM 4.5MCG/SPRA Y INHL,ORAL,1 0.2GM INHALE 2 PUFFS (160/4.5 MCG EA) BY ORAL INHALATI ON TWICE A DAY RESPIR ATORY (INHAL ATION) ACTIVE KRUMMSALLY 2024 [facility] DULOXETINE HCL 20MG CAP,EC TAKE 2 CAPSULES BY MOUTH ONCE A DAY ORAL ACTIVE KRUMMCON STEPHANY B 2024 [facility] FISH OIL 1000MG (500MG DHA/EPA) CAP,ORAL TAKE 1 CAPSULE BY MOUTH TWICE A DAY ORAL ACTIVE KRUMM,CON NOR B 2024 [facility] FISH OIL CAP/TAB TAKE 1 CAP/TAB BY MOUTH ONCE A DAY ORAL ACTIVE BOBY YOU 2009 [facility] FLAXSEED OIL CAP TAKE 1 CAPSULE BY MOUTH ONCE A DAY ORAL ACTIVE BOBY YOU M 2009 [facility] GABAPENTIN 300MG CAP TAKE 1 CAPSULE BY MOUTH EVERY MORNING ORAL ACTIVE KRUMM,CON NOR B 2024 [facility] GABAPENTIN 600MG TAB TAKE ONE TABLET BY MOUTH EVERY EVENING ORAL ACTIVE KRUMM,CON NOR B 2024 [facility] ISOSORBIDE MONONITRATE 30MG TAB,SA TAKE ONE TABLET BY MOUTH ONCE A DAY ORAL ACTIVE KRUMM,CON NOR B 2024 [facility] LIFITEGRAST 5% SOLN,OPH,0. 2ML INSTILL 1 DROP IN BOTH EYES EVERY 12 HOURS FOR DRY EYE(S) OPHTHA LMIC ACTIVE 08/26/2025 [id number] 5 Siomara ABRAHAM 2024 180 [facility] LIFITEGRAST 5% SOLN,OPH,0. 2ML INSTILL 1 DROP IN BOTH EYES EVERY 12 HOURS FOR DRY EYE(S) OPHTHA LMIC DISCONT INUED 08/06/2024 [id number] Siomara ABRAHAM 2023 180 [facility] METOPROLOL SUCCINATE 50MG TAB,SA TAKE ONE-HALF TABLET BY MOUTH ONCE A DAY ORAL ACTIVE KRUMM,CON NOR B 2024 [facility] MIRABEGRON 25MG TAB,SA TAKE ONE TABLET BY MOUTH ONCE A DAY ORAL ACTIVE KRUMM,CON NOR B 2024 [facility] MULTIVITAMI NS CAP/TAB TAKE ONE TABLET BY MOUTH ONCE A DAY ORAL ACTIVE BOBY YOU M 2009 [facility] ORLISTAT 60MG CAP TAKE 2 CAPSULES ACTIVE KRUMM,CON NOR B 2024 [facility] PEG-400 0.4%/PROPYL CARLOS GLYCOL 0.3% SOLN,OPH INSTILL 1 DROP IN AFFECTED EYE(S) FOUR TIMES A DAY NEEDED FOR DRY EYE(S) OPHTHA LMIC ACTIVE 08/26/2025 [id number] 5 Siomara ABRAHAM 2024 30 [facility] PEG-400 0.4%/PROPYL CARLOS GLYCOL 0.3% SOLN,OPH INSTILL 1 DROP IN AFFECTED EYE(S) FOUR TIMES A DAY NEEDED FOR DRY EYE(S) OPHTHA LMIC DISCONT INUED 08/06/2024 [id number] Siomara ABRAHAM 2023 30 [facility] UPADACITINI B 15MG 24HR TAB,SA TAKE ONE TABLET BY MOUTH ONCE A DAY ORAL ACTIVE KRUMM,CON NOR B 2024 [facility] Vital Signs Combined list of inpatient and outpatient Vital Signs from Department of [facility] and [facility], ranging from 12 months to all on record, depending upon the facility. Vital Sign Value Date Comments Source SYSTOLIC BLOOD PRESSURE 131 09/01/2024 13:32:25 [facility] DIASTOLIC BLOOD PRESSURE 64 09/01/2024 13:32:25 [facility] PULSE OXIMETRY 95 09/01/2024 13:32:25 [facility] WEIGHT 245 09/01/2024 13:32:25 [facility] BMI 34 kg/m2 09/01/2024 13:32:25 [facility] PAIN 0 09/01/2024 13:32:25 [facility] TEMPERATURE 97.4 09/01/2024 13:32:25 [facility] PULSE 70 09/01/2024 13:32:25 [facility] RESPIRATION 18 09/01/2024 13:32:25 [facility] Encounters Combined list of: 1) Encounters from Department of Veterans Affairs facilities going backup to the last 18 months, not all [place] inpatient encounters are included; 2) Encounters from the Department of Defense facilities going backup to 280 months. Location Location Details Encounter Type Encounter Number Reason For Visit Attending Provider ADM Date DC Date Status Disposition Source [facility] Outpatient Encounter [id number] DEDRICK ABRAHAM TTHEW C 07/21 [facility] O/P EST MOD 30 MIN [id number] Diagnos is: ICD-10- CM H33.032 Retinal detachm ent with giant retinal tear, left eye DEDRICK ABRAHAM TTHEW C 08/05 [facility] OPHTH IMG OPTIC NERVE [id number] Diagnos is: ICD-10- CM H35.343 Macular cyst, hole, or pseudoh jania freeman ANGELA T 08/05 [facility] Outpatient Encounter [id number] DEDRICK ABRAHAM TTHEW C 08/06 [facility] Outpatient Encounter [id number] 06/08 [facility] O/P EST MOD 30 MIN [id number] Diagnos is: ICD-10- CM H33.8 Other retinal detachm ents DEDRICK ABRAHAM TTHEW C 08/11 [facility] Outpatient Encounter [id number] 08/13 [facility] Outpatient Encounter [id number] 08/18 [facility] [place] 40 MIN [id number] Diagnos is: ICD-10- CM C61 Maligna nt neoplas m of prostat e Sherron BEY A 09/01 [facility] Outpatient Encounter [id number] 09/03 [facility] Outpatient Encounter [id number] 09/06 [facility] Outpatient Encounter [id number] HANNANICOLETTET HIA I 09/06 [facility] N [facility] HEARING AID XM&SLCTN BINAURL [id number] Diagnos is: ICD-10- CM H90.3 Sensori neural hearing loss, bilater al Owen LUNA N 09/17 [facility] Outpatient Encounter [id number] 09/22 [facility] N Social History Combined list of available smoking, tobacco, and other social history from Department of Defense and Veterans Affairs facilities. Social History Type Response Date Comment Sourc e Tobacco smoking status NHIS [place]-TOBACCO USE FORMER CIGARETTES 09/01/2024 [facility] History of tobacco use [place]-TOBACCO NEVER USED OTHER TYPE 09/01/2024 [facility] Plan of Care List of future care activities from Department of [facility] Affairs facilities. Additional future care activities may be listed in the Assessment and Plan section. Date/Time Care Activity Care Activity Detail Facili ty 11/01/2024 AMBULATORY - SURGERY AMBULATORY - SURGERY [facility]
--- OUTSIDE RECORDS SUMMARY | 2024-10-08 11:38 | XMS_ITS | Clinical Summary ---
Author Organization [facility] Address [address] [place] [address] Care Team Providers Care Mechanical Test Technician Name Role Phone Abhijeet Dove PA-C Primary Care Provide r Source Comments [facility],non-owned Affiliates and Associated Physician Practices is amultiple site organization consisting of ambulatory clinics and hospital sitesin [place], [place], [place] and [place]. This disclosure is being madepursuant to the Care Everywhere program and may not contain all information available regarding this patient. Last updated 17.[facility] Social History Tobacco Use Types Packs/Day Years Used Date Smoking Tobacco: Never Assessed Sex and Gender Information Value Date Recorded Sex Assigned at Not on file Legal Sex Male 4:08 PM VIDEO LIBRARY ASSISTANT Gender Identity Not on file Sexual Orientation Not on file Plan of Treatment Health Maintenance Due Date Last Done Comments DTAP/TDAP/TD VACCINES (1 - Tdap) 06/23/1964 PNEUMOCOCCAL VACCINE 50+ (1 of 1 - PCV) 1994 ZOSTER VACCINE (1 of 2) 1994 Respiratory Syncytial Virus (RSV) Vaccine Pt: or over 60 yrs (1 - 1-dose 75+ series) 06/23/2019 COVID-19 VACCINE ( - 2023-2 5 season) 2023 DEPRESSION SCREENING 03/31/2024 INFLUENZA VACCINE (#1) 2024 HEPATITIS B VACCINE Aged Out No longe r eligible based on patient's age to complete this topic HIB VACCINE Aged Out No longer eligi ble based on patient's age to complete this topic HPV VACCINE Aged Out No longer eligi ble based on patient's age to complete this topic MENINGOCOCCAL (Group B) VACC INE SHARED DECISION-MAKING Aged Out No longer eligibl e based on patient's age to complete this topic MENINGOCOCCAL GROUPS A/C/Y/W VACCINE Aged Out No longer eligible b ased on patient's age to complete this topic Insurance COVENTRY MEDICARE AETNA Care Teams Mechanical Test Technician Relationship Specialty Start Date End Date Abhijeet Dove PA-C [address] [place] [address] PCP - General 02/06/22
--- OUTSIDE RECORDS SUMMARY | 2024-10-08 11:38 | XMS_ITS | Clinical Summary ---
Author Organization [facility] [address] Address [address] [place] [address] Phone Care Team Providers Care Paper Reel Operator Name Role Phone Johan Palacios MD Primary Care Provider [phone]- [phone] Mauro PERSAUD MD, Irving Garcia [facility] [phone] Allergies No known active allergies Medications azelastine [...] in D3 250-125 mg-unit tablet Activ e bcocxiua-jpu-FS -lycopen-lutein (CENTRUM SILVER) 0.4-300-250 mg-mcg-mcg tabletIndicatio ns:Vitamin Deficiency Prevention Active citalopram (CeleXA) 40 mg tablet TK 1 T PO QD 1 8 Active FLUAD 5684-8829, 65 YR UP,,PF, 45 mcg (15 mcg [...] pain 12/03/2017 Dorsalgia 12/03/2017 [facility]oid [facility] with negative rheumatoid factor 10/25/2016 Overview (12/04/2016): On ARAVA and HCQ. U/S from 10/14 with moderate synovitis and power doppler. Assessment & Plan (07/30/2017 10:25 AM CDT): Moderate cdai. Will incr remicade to 400mg. f/u 3months. Assessment & Plan (03/05/2017 12:29 PM STUDIO COUCH FRAME BUILDER): Patient disease activity is moderate. Patient is [...] acknowledged understanding. He is to continue HCQ. 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 10/25/2016 Assessment & Plan (03/05/2017 11:04 AM STUDIO COUCH FRAME BUILDER): Will continue to monitor the patient with [...] prostate 02/09/2010 Anaclitic depression 11/13/2009 Anxiety 11/13/2009 Surgical History Surgery Date Site/Laterality Comments OTHER SURGICAL HISTORY Knee replacement BOTh OTHER SURGICAL HISTORY prostate CA HERNIA REPAIR Hernia repair Family History Medical History Relation Name Comments Asthma Other Family history of Asthma; Cancer Other Family history of Cancer, unknown; Hypertension Other Family history of Hypertension; Relation Name Status Comments Other Social History Tobacco Use Types Packs/Day Years [...] on file Legal Sex Male 9:15 AM STUDIO COUCH FRAME BUILDER Gender Identity Not on file Sexual Orientation Not on file Obstetrics History Last Filed Vital Signs Vital Sign Reading [...] 07/17/2023 12:57 PM CDT Plan of Treatment Health Maintenance Due Date Last Done Comments Depression Screening 1944 Fall Risk Assessment 1944 Hepatitis B Screening 1962 Well Visit 65+ 2009 Pneumococcal vaccine 65+ (2 of 2 - PCV) 11/23/2009 11/23/2008 DTaP/Tdap/Td Vaccine (2 - Td or Tdap) 11/23/2018 11/23/2008 Covid-19 Vaccine (2023-2 5 season) 2023 01/05/2023, 09/23/2022, 01/11/2022, Additional history exists Influenza Vaccine (Season Ended) 2024 01/05/2023, 01/07/2020, 12/28/2018, Additional history exists Zoster Vaccine Completed 05/05/2022, 04/03/2021 Insurance AETNA COVENTRY HMO/[facility]IC[facility] AETNA MEDICARE Care Teams Paper Reel Operator Relationship Specialty Start Date End Date Johan Palacios MD [address] [place] [address] PCP - General 06/28/16 Irving Wade III, MD [address] [place] [address] Rheumatology 11/01/16
[2024-10-08 12:16] LABS: Hematocrit 39.6 % (42.0-52.0); Hemoglobin 13.0 g/dL (14.0-18.0); Mean Corpuscular HGB Conc 32.8 g/dl (32-36); Mean Corpuscular Hemoglobin 30.6 pg (26-34); Mean Corpuscular Volume 93.2 fl (80-100); Platelet Count Result 199 k/mm3 (150-375); Red Blood Count 4.25 M/mm3 (4.6-6.20); White Blood Count 9.2 K/mm3 (4.5-10.0)
[2024-10-08 12:25] LABS: Add Urine Microscopic? YES; Appearance Urine Clear (Clear); Glucose Urine UA Negative (Negative); Leukocyte Esterase Ur Trace LEU/UL (Negative); Need Manual Microscopic Reviewed; Nitrate Urine Negative (Negative); Specific Grav Ur 1.045 (1.001-1.035)
== END 2024-10-08 11:36 | disposition home or self-care (01) ==
PROVIDERS: PCP Internal Medicine; Visit Provider Nurse Practitioner
DX: R50.9 Fever, unspecified (principal); R39.9 Unspecified symptoms and signs involving the genitourinary system
CPT/HCPCS: 36415; 81001; 85027

== ENCOUNTER 2024-10-18 09:19 | Outpatient (CLI) | payer MEDICARE, SELFPAY ==
--- OUTSIDE RECORDS SUMMARY | 2024-10-18 09:22 | XMS_ITS | Encounter Summary ---
Author Organization [facility] Facility Care Team Providers Care Enterprise Solutions Architect Name Role Phone Johan Palacios MD Primary Care Provider [phone]- [phone] Johan Palacios MD Primary Care Provider [phone]- [phone] Mauro PERSAUD MD, [facility] [phone] Encounter Details Date Type Department Care Team (Latest Contact Info) Description 05/31/2016 Orders Only [facility] CLINCONV ProviderMargaux MD [address] [place] [address] Social History Tobacco Use Types Packs/Day Years Used Date Smoking Tobacco: Never Alcohol Use Standard Drinks/Week Comments Yes 0 (1 standard drink = 0.6 oz pur e alcohol) Sex and Gender Information Value Date Recorded Sex Assigned at Not on file Legal Sex Male 9:15 AM QUILL REAMER Gender Identity Not on file Sexual Orientation Not on file documented as of this encounter Plan of Treatment Not on file documented as of this encounter Procedures Procedure Name Priority Date/Time Associated Diagnosis Comments PROCEDURE - RESULT 05/31/2016 12 :00 AM QUILL REAMER PROCEDURE - RESULT 05/31/2016 12 :00 AM QUILL REAMER documented in this encounter Results * PROCEDURE - RESULT (05/31/2016 12:00 AM QUILL REAMER) Narrative 05/31/2016 12:00 AM QUILL REAMER Ordered by an unspecified provider. Historical Provider Final Res ult * PROCEDURE - RESULT (05/31/2016 12:00 AM QUILL REAMER) Narrative 05/31/2016 12:00 AM QUILL REAMER Ordered by an unspecified provider. us Historical Provider Final Res ult documented in this encounter Visit Diagnoses Not on filedocumented in this encounter Care Teams Enterprise Solutions Architect Relationship Specialty Start Date End Date Johan Palacios MD [address] [place] [address] PCP - General 06/28/16 Johan Palacios MD [address] [place] [address] PCP - General 10/09/15 06/27/16 Irving Wade III, MD [address] [place] [address] Rheumatology 11/01/16 documented as of this encounter
--- OUTSIDE RECORDS SUMMARY | 2024-10-18 09:23 | XMS_ITS | Clinical Summary ---
Author Organization [facility] [address] Address [address] [place] [address] Phone Care Team Providers Care Integration Specialist Name Role Phone Johan Palacios MD Primary Care Provider [phone]- [phone] Mauro PERSAUD MD, Irving Garcia [facility] [phone] Allergies No known active allergies Medications azelastine [...] in D3 250-125 mg-unit tablet Activ e gsriwmyp-uvv-OO -lycopen-lutein (CENTRUM SILVER) 0.4-300-250 mg-mcg-mcg tabletIndicatio ns:Vitamin Deficiency Prevention Active citalopram (CeleXA) 40 mg tablet TK 1 T PO QD 1 8 Active FLUAD 7319-9197, 65 YR UP,,PF, 45 mcg (15 mcg [...] pain 12/03/2017 Dorsalgia 12/03/2017 Rheumatoid [facility] of [facility] with negative rheumatoid factor 10/25/2016 Overview (12/04/2016): On ARAVA and HCQ. U/S from 10/14 with moderate synovitis and power doppler. Assessment & Plan (07/30/2017 10:25 AM CDT): Moderate cdai. Will incr remicade to 400mg. f/u 3months. Assessment & Plan (03/05/2017 12:29 PM WELDER PRODUCTION LINE GAS): Patient disease activity is moderate. Patient is [...] acknowledged understanding. He is to continue HCQ. 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 10/25/2016 Assessment & Plan (03/05/2017 11:04 AM WELDER PRODUCTION LINE GAS): Will continue to monitor the patient with [...] on file Legal Sex Male 9:15 AM WELDER PRODUCTION LINE GAS Gender Identity Not on file Sexual Orientation [...] 05/05/2022, 04/03/2021 Insurance AETNA COVENTRY HMO/[facility] A[facility] MEDIC[facility] AETNA MEDICARE Care Teams Integration Specialist Relationship Specialty Start Date End Date Johan Palacios MD [address] [place] [address] PCP - General 06/28/16 Irving Wade III, MD [address] [place] [address] Rheumatology 11/01/16
--- OUTSIDE RECORDS SUMMARY | 2024-10-18 09:23 | XMS_ITS | Encounter Summary ---
Author Organization [facility] Address [address] [place] [address] Phone Care Team Providers Care Gynecology Teacher Name Role Phone Perez Dempsey MD Primary Care Provider [phone]- [phone] Tesha Sotelo APRN, DATA SECURITY ADMINISTRATOR Unavailable + [phone] Reason for Visit * Reason Comments Medication Refill Encounter Details Date Type Department Care Team (Late Contact Info) Description 07/23/2023 Refill [facility] [address] [place] [address] Tien Jama APRN, SECURITY PROGRAM MANAGER [address] [place] [address] Medication Refill Social History Tobacco Use Types [...] st Contact Info) Description 02/17/2025 11:00 AM WOOD CUT ENGRAVER [facility] - [place] [address] [place] [address] Tesha Sotelo APRN, DATA SECURITY ADMINISTRATOR [address] [place] [address] documented as of this encounter Visit Diagnoses Not on filedocumented in this encounter Care Teams Gynecology Teacher Relationship Specialty Start Date End Date Perez Dempsey MD [address] [place] [address] PCP - General Neurological Surgery 05/07/23 Tesha Sotelo APRN, DATA SECURITY ADMINISTRATOR [address] [place] [address] Nurse Practitioner Advanced Practice Nurse 06/18/23 documented as of this encounter
--- OUTSIDE RECORDS SUMMARY | 2024-10-18 09:23 | XMS_ITS | Clinical Summary ---
Author Organization [facility] Address [address] [place] [address] Phone Care Team Providers Care Otr Flatbed Company Truck Driver Name Role Phone Johan Palacios DO Primary Care Provider [phone] Encounters Date Type Department Care Team Description 10/13/2024 External Device Data STL ABSTRACTION Provider, Abstract 10/13/2024 External Device Data STL ABSTRACTION Provider, Abstract 10/13/2024 External Device Data ST[place] ABSTRACTION Provider, Abstract 09/14/2024 External Device Data STL ABSTRACTION Provider, [...] on file Legal Sex Male 7:55 PM ULTRASOUND APPLICATIONS SPECIALIST Gender Identity Not on file Sexual Orientation [...] 2024 01/07/2020 Medical Devices Implanted Type Area Water Quality Specialist Device Identifier Shelf Expiration Date Model / Serial / Lot Shrapnel In Leg Description:Need to have pat ient get an x-ray and then cleared by radiologist prior to MRI-mariana 04/17/22 Insurance [facility] MCR Care Teams Otr Flatbed Company Truck Driver Relationship Specialty Start Date End Date Johan Palacios DO [address] [facility] [address] [place] [address] PCP - General Internal Medicine 04/08/22
--- OUTSIDE RECORDS SUMMARY | 2024-10-18 09:23 | XMS_ITS | Referral Summary ---
Author Organization [facility] [address] Address [address] [place] [address] Phone Care Team Providers Care Fnp Name Role Phone Johan Palacios MD Primary Care Provider [phone]- [phone] Mauro PERSAUD MD, Irving Garcia [facility] [phone] Allergies No known active allergies Medications azelastine [...] in D3 250-125 mg-unit tablet Activ e zlpketkk-fle-VS -lycopen-lutein (CENTRUM SILVER) 0.4-300-250 mg-mcg-mcg tabletIndicatio ns:Vitamin Deficiency Prevention Active citalopram (CeleXA) 40 mg tablet TK 1 T PO QD 1 8 Active FLUAD 5078-4069, 65 YR UP,,PF, 45 mcg (15 mcg [...] pain 12/03/2017 Dorsalgia 12/03/2017 Rheumatoid arthritis of [facility] with negative rheumatoid factor 10/25/2016 Overview (12/04/2016): On ARAVA and HCQ. U/S from 10/14 with moderate synovitis and power doppler. Assessment & Plan (07/30/2017 10:25 AM CDT): Moderate cdai. Will incr remicade to 400mg. f/u 3months. Assessment & Plan (03/05/2017 12:29 PM SHOTGUN SHELL ASSEMBLY MACHINE OPERATOR): Patient disease activity is moderate. Patient is [...] acknowledged understanding. He is to continue HCQ. 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 10/25/2016 Assessment & Plan (03/05/2017 11:04 AM SHOTGUN SHELL ASSEMBLY MACHINE OPERATOR): Will continue to monitor the patient with [...] on file Legal Sex Male 9:15 AM SHOTGUN SHELL ASSEMBLY MACHINE OPERATOR Gender Identity Not on file Sexual Orientation [...] of Treatment Not on file Insurance AET [employer] HMO/POS [facility] T MEDICARE T MEDICARE Care Teams Fnp Relationship Specialty Start Date End Date Johan Palacios MD [address] [address] PCP - General 06/28/16 Irving Wade III, MD [address] [place] [address] [facility] 11/01/16
--- OUTSIDE RECORDS SUMMARY | 2024-10-18 09:23 | XMS_ITS | Continuity of Care Document ---
Author Name [facility] Organization [facility] Care Team Providers Care Glove Finisher Name Role Phone [facility] Unavailable Unavailable Problems Combined list of problems from Department of [facility] and [facility] facilities. It does not include entries that were removed or entered in error. Problem Status Onset Date Problem Type Date of Resolution Comments Source Arthritis, Rheumatoid * (ICD-9-CM 714.0) Active Condition [facility] Duodenitis, without mention of hemorrhage (ICD-9-CM 535.60) Active Condition [facility] Exposure to potentially hazardous substance ([facility] [id number]) Active Condition Sep 29 Entered By: DORIS FRITZ Comment: Entered automatically through LUDWIG Problem List documentation program [facility] Generalized Anxiety Disorder Active Condition [facility] Low back pain (SNOMED CT 305469873) Active Condition [facility] Major Depression, recurrent (ICD-9-CM 296.30) Active Condition [facility] Prostate Cancer (ICD-9-CM 185.) Active Condition [facility] Diagnosis: ICD-10-CM H90.3 Sensorineural hearing loss, bilateral Active Diagnosis [facility] Diagnosis: ICD-10-CM C61 Malignant neoplasm of prostate Active Diagnosis [facility] Diagnosis: ICD-10-CM H33.8 Other retinal detachments Active Diagnosis [facility] Diagnosis: ICD-10-CM H35.343 Macular cyst, hole, or pseudohole, bilateral Active Diagnosis [facility] Diagnosis: ICD-10-CM 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 and [facility] facilities.Medications provided include 1) outpatient medications from the last 15 months, and 2) patient-reported medications. Medication Details Route Status Patient Instructions Prescription Expires Prescription Number Last Dispense Date Ordering Provider Order Date Order Qty Source ACETAMINOPH EN 325MG TAB TAKE TWO TABLETS BY MOUTH FOUR TIMES A DAY ORAL ACTIVE KRUMM,SALLY HAMMOND B 2024 [facility] ALBUTEROL SO4 90MCG/ACTUA T (CFC-F) INHL,ORAL,8 .5GM INHALE 2 PUFFS BY ORAL INHALATI ON FOUR TIMES A DAY RESPIR ATORY (INHAL ATION) ACTIVE KRUMMSALLY B 2024 [facility] ALENDRONATE 70MG TAB TAKE ONE TABLET BY MOUTH EVERY WEEK ORAL ACTIVE KRUMMSALLY 2024 [facility] ASPIRIN 81MG TAB,CHEWABL E CHEW AND SWALLOW ONE TABLET BY MOUTH ONCE A DAY ORAL ACTIVE KRUMMSALLY 2024 [facility] ATORVASTATI N CA 40MG TAB TAKE ONE-HALF TABLET BY MOUTH EVERY EVENING ORAL ACTIVE KRUMMSALLY B 2024 [facility] BUDESONIDE 160MCG/FORM OTEROL FUM 4.5MCG/SPRA Y INHL,ORAL,1 0.2GM INHALE 2 PUFFS (160/4.5 MCG EA) BY ORAL INHALATI ON TWICE A DAY RESPIR ATORY (INHAL ATION) ACTIVE KRUMMSALLY 2024 [facility] DULOXETINE HCL 20MG CAP,EC TAKE 2 CAPSULES BY MOUTH ONCE A DAY ORAL ACTIVE KRUMMCON STEPHANY B 2024 [facility] FISH OIL 1000MG (500MG DHA/EPA) CAP,ORAL TAKE 1 CAPSULE BY MOUTH TWICE A DAY ORAL ACTIVE KRUMM,CON NOR B 2024 [facility] FISH OIL CAP/TAB TAKE 1 CAP/TAB BY MOUTH ONCE A DAY ORAL ACTIVE BOBY YOU 2009 [facility] FLAXSEED OIL CAP TAKE 1 CAPSULE BY MOUTH ONCE A DAY ORAL ACTIVE BOBY YOU M 2009 [facility] GABAPENTIN 300MG CAP TAKE 1 CAPSULE BY MOUTH EVERY MORNING ORAL ACTIVE KRUMM,CON NOR B 2024 [facility] GABAPENTIN 600MG TAB TAKE ONE TABLET BY MOUTH EVERY EVENING ORAL ACTIVE KRUMM,CON NOR B 2024 [facility] ISOSORBIDE MONONITRATE 30MG TAB,SA TAKE ONE TABLET BY MOUTH ONCE A DAY ORAL ACTIVE KRUMM,CON NOR B 2024 [facility] LIFITEGRAST 5% SOLN,OPH,0. 2ML INSTILL 1 DROP IN BOTH EYES EVERY 12 HOURS FOR DRY EYE(S) OPHTHA LMIC ACTIVE 08/26/2025 [id number] Siomara ABRAHAM 2024 180 [facility] LIFITEGRAST 5% SOLN,OPH,0. 2ML INSTILL 1 DROP IN BOTH EYES EVERY 12 HOURS FOR DRY EYE(S) OPHTHA LMIC DISCONT INUED 08/06/2024 [id number] Siomara ABRAHAM 2023 180 [facility] METOPROLOL SUCCINATE 50MG TAB,SA TAKE ONE-HALF TABLET BY MOUTH ONCE A DAY ORAL ACTIVE KRUMM,CON NOR B 2024 [facility] MIRABEGRON 25MG TAB,SA TAKE ONE TABLET BY MOUTH ONCE A DAY ORAL ACTIVE KRUMM,CON NOR B 2024 [facility] MULTIVITAMI NS CAP/TAB TAKE ONE TABLET BY MOUTH ONCE A DAY ORAL ACTIVE BOBY YOU M 2009 [facility] ORLISTAT 60MG CAP TAKE 2 CAPSULES ACTIVE KRUMM,CON NOR B 2024 [facility] PEG-400 0.4%/PROPYL CARLOS GLYCOL 0.3% SOLN,OPH INSTILL 1 DROP IN AFFECTED EYE(S) FOUR TIMES A DAY NEEDED FOR DRY EYE(S) OPHTHA LMIC ACTIVE 08/26/2025 [id number] Siomara ABRAHAM 2024 30 [facility] PEG-400 0.4%/PROPYL CARLOS GLYCOL 0.3% SOLN,OPH INSTILL 1 DROP IN AFFECTED EYE(S) FOUR TIMES A DAY NEEDED FOR DRY EYE(S) OPHTHA LMIC DISCONT INUED 08/06/2024 [id number] Siomara ABRAHAM 2023 30 [facility] UPADACITINI B 15MG 24HR TAB,SA TAKE ONE TABLET BY MOUTH ONCE A DAY ORAL ACTIVE KRUMM,CON NOR B 2024 [facility] Vital Signs Combined list of inpatient and outpatient Vital Signs from Department of [facility] and [facility], ranging from 12 months to all on record, depending upon the facility. Vital Sign Value Date Comments Source SYSTOLIC BLOOD PRESSURE 131 09/01/2024 13:32:25 [facility] DIASTOLIC BLOOD PRESSURE 64 09/01/2024 13:32:25 [facility] PULSE OXIMETRY 95 09/01/2024 13:32:25 [facility] WEIGHT 245 09/01/2024 13:32:25 [facility] BMI 34 kg/m2 09/01/2024 13:32:25 [facility] PAIN 0 09/01/2024 13:32:25 [facility] TEMPERATURE 97.4 09/01/2024 13:32:25 [facility] PULSE 70 09/01/2024 13:32:25 [facility] RESPIRATION 18 09/01/2024 13:32:25 [facility] Encounters Combined list of: 1) Encounters from Department of Veterans Affairs facilities going backup to the last 18 months, not all [place] inpatient encounters are included; 2) Encounters from the Department of Defense facilities going backup to 280 months. Location Location Details Encounter Type Encounter Number Reason For Visit Attending Provider ADM Date DC Date Status Disposition Source [facility] Outpatient Encounter [id number] DEDRICK ABRAHAM TTHEW C 07/21 [facility] O/P EST MOD 30 MIN [id number] Diagnos is: ICD-10- CM H33.032 Retinal detachm ent with giant retinal tear, left eye DEDRICK ABRAHAM TTHEW C 08/05 [facility] CMPTR OPHTH IMG OPTIC NERVE [id number] Diagnos is: ICD-10- CM H35.343 Macular cyst, hole, or pseudoh jania freeman ANGELA T 08/05 [facility] Outpatient Encounter [id number] DEDRICK ABRAHAM TTHEW C 08/06 [facility] Outpatient Encounter [id number] 06/08 [facility] O/P EST MOD 30 MIN [id number] Diagnos is: ICD-10- CM H33.8 Other retinal detachm ents DEDRICK ABRAHAM TTHEW C 08/11 [facility] Outpatient Encounter [id number] 08/13 [facility] Outpatient Encounter [id number] 08/18 [facility] OFF[facility] O/P EST HI 40 MIN [id number] Diagnos is: ICD-10- CM C61 Maligna nt neoplas m of prostat e Sherron BEY A 09/01 [facility] Outpatient Encounter [id number] 09/03 [facility] Outpatient Encounter [id number] 09/06 [facility] Outpatient Encounter [id number] HANNANICLOETTET HIA I 09/06 [facility] N [facility] HEARING AID XM&SLCTN BINAURL [id number] Diagnos is: ICD-10- CM H90.3 Sensori neural hearing loss, bilater al Owen LUNA N 09/17 [facility] Outpatient Encounter [id number] 09/22 [facility] N Social History Combined list of available smoking, tobacco, and other social history from Department of Defense and Veterans Affairs facilities. Social History Type Response Date Comment Sourc e Tobacco smoking status NHIS [place]-TOBACCO USE FORMER CIGARETTES 09/01/2024 [facility] History of tobacco use [place]-TOBACCO NEVER USED OTHER TYPE 09/01/2024 [facility] Plan of Care List of future care activities from Department of [facility] Affairs facilities. Additional future care activities may be listed in the Assessment and Plan section. Date/Time Care Activity Care Activity Detail Facili ty 11/01/2024 AMBULATORY - SURGERY AMBULATORY - SURGERY [facility]
--- OUTSIDE RECORDS SUMMARY | 2024-10-18 09:23 | XMS_ITS | Clinical Summary ---
Author Organization [facility] Address [address] [place] [address] Phone Care Team Providers Care Wired Sweatband Cutter Name Role Phone Perez Dempsey MD Primary Care Provider Tesha Sotelo APRN, SURVEY RESEARCH MANAGER Unavailable +1- [phone] Allergies No known active allergies Medications Orlistat [...] 08/18/2024 11:00 AM CDT Office Visit [facility] - Neurology [place] [address] [place] [id number] Tesha Sotelo, CATERING TRUCK DRIVER, SURVEY RESEARCH MANAGER Peripheral polyneuropathy (Primary Dx); Numbness and tingling [...] st Contact Info) Description 02/17/2025 11:00 AM OUTSIDE OPERATOR Office Visit [facility] - Neurology - [place] [address] [place] [address] Tesha Sotelo APRN, SURVEY RESEARCH MANAGER [address] [place] [address] Health Maintenance Due Date Last Done Comments [...] topic Insurance MEDICARE C AETNA Care Teams Wired Sweatband Cutter Relationship Specialty Start Date End Date Perez Dempsey MD [address] [place] [address] PCP - General Neurological Surgery 05/07/23 Tesha Sotelo APRN, SURVEY RESEARCH MANAGER [address] [place] [address] Nurse Practitioner Advanced Practice Nurse 06/18/23
--- OUTSIDE RECORDS SUMMARY | 2024-10-18 09:23 | XMS_ITS | Encounter Summary ---
Author Organization [facility] Address [address] [address] Phone Care Team Providers Care Tip Tester Name Role Phone Perez Dempsey MD Primary Care Provider +1- [phone] Tesha Sotelo APRN, DOCK ATTENDANT Unavailable + [phone] Reason for Visit * Reason Comments Medication Refill Encounter Details Date Type Department Care Team (Late st Contact Info) Description 02/10/2024 Refill [facility] PHYSICIAN [facility] [address] [place] [address] Tien Jama APRN, RESTAURANT HOST/HOSTESS [address] [place] [address] Medication Refill Social History Tobacco Use Types [...] st Contact Info) Description 02/17/2025 11:00 AM ARMAMENT REPAIRER [facility] [place] [address] [place] [address] Tesha Sotelo APRN, DOCK ATTENDANT [address] [place] [address] documented as of this encounter Visit Diagnoses Not on filedocumented in this encounter Care Teams Tip Tester Relationship Specialty Start Date End Date Perez Dempsey MD [address] [place] [address] PCP - General Neurological Surgery 05/07/23 Tesha Sotelo APRN, DOCK ATTENDANT [address] [place] [address] Nurse Practitioner Advanced Practice Nurse 06/18/23 documented as of this encounter
--- OUTSIDE RECORDS SUMMARY | 2024-10-18 09:23 | XMS_ITS | Patient Health Record ---
Author Organization [facility] Address [address] [place] [address] Care Team Providers Care Retort Furnace Operator Name Role Phone FELA SILVERIO PA-C Primary Care Provider Ayaan Costa Unavailable [phone] Reason For Referral No Information Medications Medication SIG (Take, Route, Frequency, Duration) Notes Start Date End Date Status Citalopram Hydrobromide 20 MG Oral 03/17/2023 Active ProAir HFA 108 (90 Base) MCG/ACT Inhalation 03/17/2023 Active SOLIFENACIN 10 MG TABLET *Reorder from [facility] for eRx and Interaction Alerts* 03/17/2023 Active Atorvastatin Calcium 20 MG Oral 03/17/2023 Active Trelegy Ellipta 200-62.5-25 MCG/ACT Inhalation *Pick strength-form from [facility] for eRX* 03/17/2023 Active Methocarbamol 750 MG Oral 03/17/2023 Active Alendronate Sodium 70 MG Oral 03/17/2023 Active Isosorbide Mononitrate 10 MG Oral 03/17/2023 Active Folic Acid 1 MG Oral 03/17/2023 Act james Gabapentin 400 MG Oral 03/17/2023 A ctive Myrbetriq 25 MG Oral 03/17/2023 Act james predniSONE 2.5 MG Oral 03/17/2023 A ctive ORLISTAT 120 MG CAPSULE *Reorder from [facility] for eRx and Interaction Alerts* 03/17/2023 Active Metoprolol Succinate ER 25 MG Oral 03/17/2023 Active busPIRone HCl 10 MG Oral 03/17/2023 Active Methotrexate 2.5 MG Oral 03/17/2023 Active Sertraline HCl 100 MG Oral 03/17/2023 Active Leflunomide 20 MG Oral 03/17/2023 A ctive RINVOQ 15 MG TABLET,EXTENDED RELEASE *Reorder from [facility] for eRx and Interaction Alerts* 03/17/2023 Active DULoxetine HCl 40 MG Oral 03/17/2023 Active Immunizations Vaccine Route Administration Date Status Comme nts Influenza, unspecified formulation Unknown 01/05/2023 A dministered Pfizer [employer] Covid-19 Vac cine 2nd dose Unknown 05/13/2020 Administered Pfizer [employer] Covid-19 Vac cine 2nd dose Unknown 06/02/2020 Administered Pfizer [employer] Covid-19 Vac cine 2nd dose Unknown 01/10/2021 Administered Pfizer [employer] Covid-19 Vac cine 2nd dose Unknown 07/25/2021 Administered Pfizer [employer] Covid-19 Vac cine 2nd dose Unknown 01/11/2022 Administered Social History Sex Assigned At : Social History Observation Description Sex Assigned At Male Encounters Encounter Location Date Provider Diagnosis [facility] [address] [facility] [address] [address] 10/08/2024 Ayaan [place] [address] [address] [facility] [address] [address] 10/14/2024 Ayaan [place] Plan Of Treatment No Information Insurance Providers Payer Name Payer Address Payer Phone Subscriber Number Group Number Insured Name Patient Relationship to Insured Coverage Start Date Coverage End Date Aena o [address] [place] [address] [id number] [phone] [id number] MARCELA MORALES Self - patient is the insured Medical (General) History Surgical History Surgery Date(Month/Year) Procedure on back ([id number]) 05/24/2022 Cataract surgery (02630) 06/11/2014 Appendectomy (63703) 08/15/1969 Other 11/21/2021
--- OUTSIDE RECORDS SUMMARY | 2024-10-18 09:23 | XMS_ITS | Clinical Summary ---
Author Organization [facility] Address [address] [place] [address] Care Team Providers Care Visual Effects Artist Name Role Phone Abhijeet oDve PA-C Primary Care Provide r Source Comments [facility],non-owned Affiliates and Associated Physician Practices is amultiple site organization consisting of ambulatory clinics and hospital sitesin [place], [place], [place] and [place]. This disclosure is being madepursuant to the Care Everywhere program and may not contain all information available regarding this patient. Last updated 17.[facility] Social History Tobacco Use Types Packs/Day Years Used Date Smoking Tobacco: Never Assessed Sex and Gender Information Value Date Recorded Sex Assigned at Not on file Legal Sex Male 4:08 PM PROCESSOR HELPER Gender Identity Not on file Sexual Orientation [...] topic Insurance COVENTRY MEDICARE AETNA Care Teams Visual Effects Artist Relationship Specialty Start Date End Date Abhijeet Dove PA-C [address] [place] [address] PCP - General 02/06/22
--- OUTSIDE RECORDS SUMMARY | 2024-10-18 09:23 | XMS_ITS | Encounter Summary ---
Author Organization [facility] Address [address] [facility] [place] [address] Care Team Providers Care Director Workforce Management Name Role Phone Johan Palacios DO Primary Care Provider Abhijeet Dove PA-C Primary Care Provide r Encounter Details Date Type Department Care Team (Late st Contact Info) Description 12/26/2021 Lab Requisition [facility] Care D[facility] Lab [address] [facility] [place] [address] Kal Farr MD [address] [place] [address] Social History Tobacco Use Types Packs/Day Years Used Date Smoking Tobacco: Never Assessed Sex and Gender Information Value Date Recorded Sex Assigned at Not on file Legal Sex Male 4:08 PM 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 Jar 0. Specimen B: Received is one formalin filled container labeled with the patient's name and designated right forehead. The specimen consists of a shave biopsy measuring [id number]. Jar 0. 2 3:35 PM [facility] DERMATOPATHOLOGY LABORATORY Microscopic Description Specimen A. SKIN, [...] characteristic determined by the Dermatopathology Laboratory at [facility], directed by Dr. Jesu Westbrook. These tests need not be, and therefore are not, approved by the [place] Food and Drug Administration. The tests are used for clinical purposes. Billing Codes Specimen Charges Stain Charges 89403 98966 1 1 2 3:35 PM CDT DERMATOPATHOLOGY LABORATORY Embedded Images 2 3:35 PM CDT DERMATOPATHOLOGY LABORATORY Pathology/Cytology TISSUE SPECIMEN FROM SKIN / Unknown 12/25/2021 3:33 AM CDT 12/26/2021 2:28 PM CDT Miscellaneous samples (specimen) TISSUE SPECIMEN FROM SKIN / Unknown 12/25/2021 3:33 AM CDT 12/26/2021 2:28 PM CDT Kal Farr MD LAB - PATHOLOGY/CYTOLOGY ORD ERABLES Final Result DERMATOPATHOLOGY LABORATORY [facility] - Department of Dermatology [facility] Medicine [address] [place] [address], [address] [phone] documented in this encounter Visit Diagnoses Not on filedocumented in this encounter Care Teams Director Workforce Management Relationship Specialty Start Date End Date Johan Palacios DO [address] [facility] [address] [place] [address] PCP - General Internal Medicine 03/09/15 02/05/22 Abhijeet Dove PA-C [address] [facility] [address] [place] [address] PCP - General 02/06/22 documented as of this encounter
--- OUTSIDE RECORDS SUMMARY | 2024-10-18 09:23 | XMS_ITS ---
Author Name Auto Generated, Auto Generated Organization [facility] Address [address] [place] [address] Phone [phone] Care Team Providers Care Senior Lead Software Engineer Name Role Phone Abhijeet Dove Unavailable [phone] Frandy Stubbs Unavailable Nabor Hampton Unavailable Rm Solis Unavailable [phone] Functional Status No Results Mental Status No [...] * Text: * Atherosclerotic heart disease of [place] coronary artery without angina pectoris* Code: * [...]
[2024-10-18 09:55] LABS: Add Urine Microscopic? NO; Appearance Urine Clear (Clear); Glucose Urine UA Negative (Negative); Leukocyte Esterase Ur Negative LEU/UL (Negative); Nitrate Urine Negative (Negative); Specific Grav Ur 1.020 (1.001-1.035)
== END 2024-10-18 09:20 | disposition home or self-care (01) ==
PROVIDERS: PCP Nurse Practitioner; Visit Provider Nurse Practitioner
DX: N39.0 Urinary tract infection, site not specified (principal)
CPT/HCPCS: 81003

== ENCOUNTER 2024-12-22 08:20 | Outpatient (CLI) | payer MEDICARE, SELFPAY ==
--- NOTE | ~2024-12-22 | US_ITS ---
EXAMINATION: US art doppler juli CORRALES DATE: 12/22/2024 09:04 INDICATION: Peripheral vascular disease TECHNIQUE: Segmental pressures and plethysmographic and Doppler waveforms of the brachial and lower extremity arteries were obtained. COMPARISON: None. FINDINGS: Right and left brachial artery pressures of 126 mm Hg and 117 mm Hg, respectively, are concordant (normal difference <= 30 mmHg). The right ankle-brachial index (WALT) is 1.15 (normal >= 0.9-1). The right great toe-brachial index (TBI) is 0.97 (normal >= 0.6-0.8). The right lower extremity segmental pressure gradients are normal (normal gradients <= 20-30 mmHg between adjacent levels on the same leg or the same levels on the two legs). Arterial waveforms are triphasic at the right common femoral artery, biphasic at the right superficial femoral, popliteal and dorsalis pedis arteries. Monophasic at the right posterior tibial artery, all with brisk systolic upstrokes. Cardiac arrhythmia is present. The left WALT is 1.19. The left TBI is 0.84. The left lower extremity segmental pressure gradients are normal. Arterial waveforms are triphasic at the right common femoral, superficial femoral and popliteal arteries and biphasic at the left posterior tibial and dorsalis pedis arteries with brisk systolic upstrokes throughout. IMPRESSION: 1. No significant arterial occlusive disease with normal bilateral ABIs and TBI's. 2. Cardiac arrhythmia is present. Correlate with EKG. Reviewed, dictated and finalized at location A. IMPRESSION: 1. No significant arterial occlusive disease with normal bilateral ABIs and TBI 's. 2. Cardiac arrhythmia is present. Correlate with EKG.
--- OUTSIDE RECORDS SUMMARY | 2024-12-22 08:33 | XMS_ITS | Encounter Summary ---
Author Organization [facility] Address [address] [place] [address] Phone Care Team Providers Care Jd Edwards Consultant Name Role Phone Perez Dempsey MD Primary Care Provider [phone] Tesha Sotelo APRN, DIRECTOR MEETINGS Unavailable + [phone] Reason for Visit * Reason Comments Medication Refill Encounter Details Date Type Department Care Team (Late st Contact Info) Description 02/10/2024 Refill [facility] UROLOGY [address] [place] [address] Tien Jama APRN, PERINATAL TECHNICIAN [address] [place] [address] Medication Refill Social History Tobacco Use Types [...] st Contact Info) Description 02/17/2025 11:00 AM FUR LINER [facility] - [place] [address] [place] [address] Tesha Sotelo APRN, DIRECTOR MEETINGS [address] [place] [address] documented as of this encounter Visit Diagnoses Not on filedocumented in this encounter Care Teams Jd Edwards Consultant Relationship Specialty Start Date End Date Perez Dempsey MD [address] [place] [address] PCP - General Neurological Surgery 05/07/23 Tesha Sotelo APRN, DIRECTOR MEETINGS [address] [place] [address] Nurse Practitioner Advanced Practice Nurse 06/18/23 documented as of this encounter
--- OUTSIDE RECORDS SUMMARY | 2024-12-22 08:33 | XMS_ITS | Encounter Summary ---
Author Organization [facility] Care Team Providers Care Digital Account Manager Name Role Phone Johan Palacios MD Primary Care Provider [phone] Johan Palacios MD Primary Care Provider [phone] Mauro PERSAUD MD, [facility] [phone] Encounter Details Date Type Department Care Team (Latest Contact Info) Description 05/31/2016 Orders Only [facility] ProviderMargaux MD [address] [place] [address] Social History Tobacco Use Types Packs/Day Years Used Date Smoking Tobacco: Never Alcohol Use Standard Drinks/Week Comments Yes 0 (1 standard drink = 0.6 oz pur e alcohol) Sex and Gender Information Value Date Recorded Sex Assigned at Not on file Legal Sex Male 9:15 AM FOREST FIRE CONTROL OFFICER Gender Identity Not on file Sexual Orientation Not on file documented as of this encounter Plan of Treatment Not on file documented as of this encounter Procedures Procedure Name Priority Date/Time Associated Diagnosis Comments PROCEDURE - RESULT 05/31/2016 12 :00 AM FOREST FIRE CONTROL OFFICER PROCEDURE - RESULT 05/31/2016 12 :00 AM FOREST FIRE CONTROL OFFICER documented in this encounter Results * PROCEDURE - RESULT (05/31/2016 12:00 AM FOREST FIRE CONTROL OFFICER) Narrative 05/31/2016 12:00 AM FOREST FIRE CONTROL OFFICER Ordered by an unspecified provider. Historical Provider Final Res ult * PROCEDURE - RESULT (05/31/2016 12:00 AM FOREST FIRE CONTROL OFFICER) Narrative 05/31/2016 12:00 AM FOREST FIRE CONTROL OFFICER Ordered by an unspecified provider. us Historical Provider Final Res ult documented in this encounter Visit Diagnoses Not on filedocumented in this encounter Care Teams Digital Account Manager Relationship Specialty Start Date End Date Johan Palacios MD [address] [place] [address] PCP - General 06/28/16 Johan Palacios MD [address] [place] [address] PCP - General 10/09/15 06/27/16 Irving Wade III, MD [address] [place] [address] Rheumatology 11/01/16 documented as of this encounter
--- OUTSIDE RECORDS SUMMARY | 2024-12-22 08:33 | XMS_ITS | Clinical Summary ---
Author Organization [facility] Address [address] [place] [address] Care Team Providers Care Gold Miner Blasting Name Role Phone Abhijeet Dove PA-C Primary Care Provide r Source Comments [facility],non-owned Affiliates and Associated Physician Practices is amultiple site organization consisting of ambulatory clinics and hospital sitesin [place], [place], [place] and [place]. This disclosure is being madepursuant to the Care Everywhere program and may not contain all information available regarding this patient. Last updated 17.[facility] Social History Tobacco Use Types Packs/Day Years Used Date Smoking Tobacco: Never Assessed Sex and Gender Information Value Date Recorded Sex Assigned at Not on file Legal Sex Male 4:08 PM CORPORATE SAFETY DIRECTOR Gender Identity Not on file Sexual Orientation Not on file Plan of Treatment Health Maintenance Due Date Last Done Comments DTAP/TDAP/TD VACCINES (1 - Tdap) 06/23/1963 PNEUMOCOCCAL VACCINE 50+ (1 of 1 - PCV) 1994 ZOSTER VACCINE (1 of 2) 1994 Respiratory Syncytial Virus (RSV) Vaccine Pt: or over 60 yrs (1 - 1-dose 75+ series) 06/23/2019 DEPRESSION SCREENING 03/31/2024 COVID-19 VACCINE (1 - 2023-2 5 season) 2024 INFLUENZA VACCINE (#1) 2024 HEPATITIS B VACCINE [...] topic Insurance COVENTRY MEDICARE AETNA Care Teams Gold Miner Blasting Relationship Specialty Start Date End Date Abhijeet Dove PA-C [address] [place] [address] PCP - General 02/06/22
--- OUTSIDE RECORDS SUMMARY | 2024-12-22 08:33 | XMS_ITS | Clinical Summary ---
Author Organization [facility] [address] Address [address] [place] [address] Phone Care Team Providers Care All Source Analyst Name Role Phone Johan Palacios MD Primary Care Provider [phone] Mauro PERSAUD MD, [facility] [phone] Allergies No known active allergies Medications azelastine [...] in D3 250-125 mg-unit tablet Activ e stsjwums-cnc-ER -lycopen-lutein (CENTRUM SILVER) 0.4-300-250 mg-mcg-mcg tabletIndicatio ns:Vitamin Deficiency Prevention Active citalopram (CeleXA) 40 mg tablet TK 1 T PO QD 1 8 Active FLUAD 1829-5581, 65 YR UP,,PF, 45 mcg (15 mcg [...] pain 12/03/2017 Dorsalgia 12/03/2017 [facility] with negative rheumatoid factor 10/25/2016 Overview (12/04/2016): On ARAVA and HCQ. U/S from 10/14 with moderate synovitis and power doppler. Assessment & Plan (07/30/2017 10:25 AM CDT): Moderate cdai. Will incr remicade to 400mg. f/u 3months. Assessment & Plan (03/05/2017 12:29 PM FEATHER CUTTING MACHINE FEEDER): Patient disease activity is moderate. Patient is [...] acknowledged understanding. He is to continue HCQ. nursing home use of drug 10/25/2016 Assessment & Plan (03/05/2017 11:04 AM FEATHER CUTTING MACHINE FEEDER): Will continue to monitor the patient with [...] on file Legal Sex Male 9:15 AM FEATHER CUTTING MACHINE FEEDER Gender Identity Not on file Sexual Orientation [...] Td or Tdap) 11/23/2018 11/23/2008 Covid-19 Vaccine (2024-2 6 season) 2024 01/05/2023, 09/23/2022, 01/11/2022, Additional history exists Influenza Vaccine (#1) 2024 , 01/07/2020, 12/28/2018, Additional history exists Zoster Vaccine Completed 05/05/2022, 04/03/2021 Insurance AETNA COVENTRY HMO/[facility]IC[facility] AETNA MEDICARE Care Teams All Source Analyst Relationship Specialty Start Date End Date Johan Palacios MD [address] [place] [address] PCP - General 06/28/16 Irving Wade III, MD [address] [place] [address] Rheumatology 11/01/16
--- OUTSIDE RECORDS SUMMARY | 2024-12-22 08:33 | XMS_ITS | Patient Health Record ---
Author Organization [facility] Address [address] [place] [address] Care Team Providers Care Whittling Room Operator Name Role Phone FELA SILVERIO PA-C Primary Care Provider Ayaan Costa Unavailable [phone] Reason For Referral No Information Medications Medication SIG (Take, Route, Frequency, Duration) Notes Start Date End Date Status Citalopram Hydrobromide 20 MG Tablet Oral 03/17/2023 Active ProAir HFA 108 (90 Base) MCG/ACT Aerosol Solution Inhalation 03/17/2023 Active SOLIFENACIN 10 MG TABLET *Reorder from [facility] for eRx and Interaction Alerts* 03/17/2023 Active Atorvastatin Calcium 20 MG Tablet Oral 03/17/2023 Active Trelegy Ellipta 200-62.5-25 MCG/ACT Aerosol Powder Breath Activated Inhalation *Pick strength-form from [facility] for eRX* 03/17/2023 Active Methocarbamol 750 MG Tablet Oral 03/17/2023 Active Alendronate Sodium 70 MG Tablet Oral 03/17/2023 Active Isosorbide Mononitrate 10 MG Tablet Oral 03/17/2023 Active Folic Acid 1 MG Tablet Oral 03/17/2023 Active Gabapentin 400 MG Capsule Oral 03/17/2023 Active Myrbetriq 25 MG Tablet Extended Release 24 Hour Oral 03/17/2023 Active predniSONE 2.5 MG Tablet Oral 03/17/2023 Active ORLISTAT 120 MG CAPSULE *Reorder from [facility] for eRx and Interaction Alerts* 03/17/2023 Active Metoprolol Succinate ER 25 MG Tablet Extended Release 24 Hour Oral 03/17/2023 Active busPIRone HCl 10 MG Tablet Oral 03/17/2023 Active Methotrexate 2.5 MG Tablet Oral 03/17/2023 Active Sertraline HCl 100 MG Tablet Oral 03/17/2023 Active Leflunomide 20 MG Tablet Oral 03/17/2023 Active RINVOQ 15 MG TABLET,EXTENDED RELEASE *Reorder from [facility] for eRx and Interaction Alerts* 03/17/2023 Active DULoxetine HCl 40 MG Capsule Delayed Release Particles Oral 03/17/2023 Active Immunizations Vaccine Route Administration [...] History Observation Description Sex Assigned At Male Social History Additional Details Category Social Info Options Details Migrated Social History Migrated Social History Alcohol Intake: Occasional 09/07/2021,Tobacco Years: Former smoker 09/07/2021,Smoking Status: 29 03/17/2023 Encounters Encounter Location Date Provider Diagnosis [facility] [facility] [place] [address] [address] [facility] [address] [address] 10/08/2024 Ayaan [place] [facility] [place] [address] [facility] [address] [place] [address] 11/22/2024 Ayaan [place] [facility] [place] [address] [facility] [address] [place] [address] 10/14/2024 Ayaan [place] Plan Of Treatment No Information Insurance Providers Payer Name Payer Address Payer Phone Subscriber Number Group Number Insured Name Patient Relationship to Insured Coverage Start Date Coverage End Date Aetna Hmo [address] [place] [address] [id number] [id number] MARCELA MORALES Self - patient is the insured Medical (General) History Surgical History Surgery Date(Month/Year) Procedure on back ([id number]) 05/24/2022 Cataract surgery (58382) 06/11/2014 Appendectomy (71998) 08/15/1969 Other 11/21/2021
--- OUTSIDE RECORDS SUMMARY | 2024-12-22 08:33 | XMS_ITS | Clinical Summary ---
Author Organization [facility] Address [address] [place] [address] Phone Care Team Providers Care Mechanical Systems Control Engineer Name Role Phone Johan Palacios DO Primary Care Provider [phone] Encounters Date Type Department Care Team Description 12/14/2024 External Device Data [facility] ABSTRACTION Provider, Abstract 12/14/2024 External Device Data [facility] ABSTRACTION Provider, Abstract 11/17/2024 External Device Data [facility] ABSTRACTION Provider, Abstract 11/16/2024 External Device Data [facility] ABSTRACTION Provider, Abstract 11/03/2024 External Device Data [facility] Provider, Abstract [...] on file Legal Sex Male 7:55 PM DOG RACES MANAGER Gender Identity Not on file Sexual Orientation [...] 2024 01/07/2020 Medical Devices Implanted Type Area Regional Property Manager Device Identifier Shelf Expiration Date Model / Serial / Lot Shrapnel In Leg Description:Need to have pat ient get an x-ray and then cleared by radiologist prior to MRI-mariana 04/17/22 Insurance [facility] MCR Care Teams Mechanical Systems Control Engineer Relationship Specialty Start Date End Date Johan Palacios DO [address] [facility] [address] [place] [address] PCP - General Internal Medicine 04/08/22
--- OUTSIDE RECORDS SUMMARY | 2024-12-22 08:33 | XMS_ITS | Encounter Summary ---
Author Organization [facility] Address [address] [facility] [place] [address] Care Team Providers Care Electrophysiology Technician Name Role Phone Johan Palacios DO Primary Care Provider Abhijeet Dove PA-C Primary Care Provide r Encounter Details Date Type Department Care Team (Late st Contact Info) Description 12/26/2021 Lab Requisition [facility] Care DermPath Lab [address] [facility], [place] [address] Kal Farr MD [address] [place] [address] Social History Tobacco Use Types Packs/Day Years Used Date Smoking Tobacco: Never Assessed Sex and Gender Information Value Date Recorded Sex Assigned at Not on file Legal Sex Male 4:08 PM LICENSED PESTICIDE APPLICATOR Gender Identity Not on file Sexual Orientation Not on file documented as of this encounter Plan of Treatment Not on file documented as of this encounter Procedures Procedure Name Priority Date/Time Associated Diagnosis Comments DERMATOPATHOLOGY Routine 12/25/2021 3:33 AM CDT documented in this encounter Results * DERMATOPATHOLOGY (12/25/2021 3:33 AM CDT) Case Report Dermatopathology Report Case: [id number] Authorizing Provider: Kal Farr MD Collected: 12/25/2021 [...] specimen consists of a shave biopsy measuring [id number]. Jar 0. Specimen B: Received is one formalin filled container labeled with the patient's name and designated right forehead. The specimen consists of a shave biopsy measuring [id number]. Jar 0. 2 3:35 PM [facility] DERMATOPATHOLOGY LABORATORY Microscopic Description Specimen A. SKIN, [...] characteristic determined by the Dermatopathology Laboratory at [facility], directed by Dr. Jesu Westbrook. These tests need not be, and therefore are not, approved by the [place] Food and Drug Administration. The tests are used for clinical purposes. Billing Codes Specimen Charges Stain Charges 14300 54010 1 1 2 3:35 PM CDT DERMATOPATHOLOGY LABORATORY Embedded Images 2 3:35 PM CDT DERMATOPATHOLOGY LABORATORY Pathology/Cytology TISSUE SPECIMEN FROM SKIN / Unknown 12/25/2021 3:33 AM CDT 12/26/2021 2:28 PM CDT Miscellaneous samples (specimen) TISSUE SPECIMEN FROM SKIN / Unknown 12/25/2021 3:33 AM CDT 12/26/2021 2:28 PM CDT Kal Farr MD LAB - PATHOLOGY/CYTOLOGY ORD ERABLES Final Result DERMATOPATHOLOGY LABORATORY [facility] - Department of Dermatology [facility] Medicine [address] [place] [address], [address] [phone] documented in this encounter Visit Diagnoses Not on filedocumented in this encounter Care Teams Electrophysiology Technician Relationship Specialty Start Date End Date Johan Palacios DO [address] [facility] [address] [place] [address] PCP - General Internal Medicine 03/09/15 02/05/22 Abhijeet Dove PA-C [address] [facility] [address] [place] [address] PCP - General 02/06/22 documented as of this encounter
--- OUTSIDE RECORDS SUMMARY | 2024-12-22 08:33 | XMS_ITS | Patient Health Record ---
Author Organization [facility] Address [address] [place] [address] Reason For Referral No Information Plan Of Treatment No Information
--- OUTSIDE RECORDS SUMMARY | 2024-12-22 08:33 | XMS_ITS | Clinical Summary ---
Author Organization [facility] Address [address] [place] [address] Phone Care Team Providers Care Cycle Director Name Role Phone Perez Dempsey MD Primary Care Provider [phone] Tesha Sotelo APRN, TRAIN CREW MEMBER Unavailable +1- [phone] Allergies No known active allergies Medications Orlistat [...] Active Active Problems No known active problems Immunizations Immunization Administration Dates Next Due Hepatitis [...] st Contact Info) Description 02/17/2025 11:00 AM ENERGY RATER Office Visit [facility] - [facility]rology - [place] [address] [place] [address] Tesha Sotelo APRN, TRAIN CREW MEMBER [address] [place] [address] Health Maintenance Due Date Last Done Comments Hepatitis C Virus (HCV) Screening 1945 Pneumococcal Immunization (50+ years) (2 of 2 - PCV) 11/23/2009 11/23/2008 Td Immunization Every 10 Years (Adults With 1 Tdap) 11/23/2018 11/23/2008 Influenza Immunization (#1) 2024 09/0 11/2023, 01/05/2023, 01/07/2020, Additional history exists SARS-COV-2 Immunization () 11/29/2024 12/08/2023, 01/05/2023, 09/23/2022, Additional history exists DTaP/Tdap/Td Immunization Discontinued 11/23/2008 [...] topic Insurance MEDICARE C [employer] Care Teams Cycle Director Relationship Specialty Start Date End Date Perez Dempsey MD [address] [place] [address] PCP - General Neurological Surgery 05/07/23 Tesha Sotelo APRN, TRAIN CREW MEMBER [address] [place] [address] Nurse Practitioner Advanced Practice Nurse 06/18/23
--- OUTSIDE RECORDS SUMMARY | 2024-12-22 08:33 | XMS_ITS | Encounter Summary ---
Author Organization [facility] Facility Care Team Providers Care Gimp Buttonhole Machine Operator Name Role Phone Johan Palacios MD Primary Care Provider [phone]- [phone] Johan Palacios MD Primary Care Provider +1- [phone] Mauro PERSAUD MD, [facility] Encounter Details Date Type Department Care Team (Latest Contact Info) Description 05/23/2016 Orders Only [facility] CLINCONV ProviderMargaux MD [address] [place] [id number] Social History Tobacco Use Types Packs/Day Years Used Date Smoking Tobacco: Never Alcohol Use Standard Drinks/Week Comments Yes 0 (1 standard drink = 0.6 oz pur e alcohol) Sex and Gender Information Value Date Recorded Sex Assigned at Not on file Legal Sex Male 9:15 AM PROFESSOR OF GEOGRAPHY Gender Identity Not on file Sexual Orientation Not on file documented as of this encounter Plan of Treatment Not on file documented as of this encounter Procedures Procedure Name Priority Date/Time Associated Diagnosis Comments PROCEDURE - RESULT 05/23/2016 12 :00 AM PROFESSOR OF GEOGRAPHY PROCEDURE - RESULT 05/23/2016 12 :00 AM PROFESSOR OF GEOGRAPHY PROCEDURE - RESULT 05/23/2016 12 :00 AM PROFESSOR OF GEOGRAPHY documented in this encounter Results * PROCEDURE - RESULT (05/23/2016 12:00 AM PROFESSOR OF GEOGRAPHY) Narrative 05/23/2016 12:00 AM PROFESSOR OF GEOGRAPHY Ordered by an unspecified provider. Historical Provider MD Final Res ult * PROCEDURE - RESULT (05/23/2016 12:00 AM PROFESSOR OF GEOGRAPHY) Narrative 05/23/2016 12:00 AM PROFESSOR OF GEOGRAPHY Ordered by an unspecified provider. Historical Provider Final Res ult * PROCEDURE - RESULT (05/23/2016 12:00 AM PROFESSOR OF GEOGRAPHY) Narrative 05/23/2016 12:00 AM PROFESSOR OF GEOGRAPHY Ordered by an unspecified provider. Historical Provider Final Res ult documented in this encounter Visit Diagnoses Not on filedocumented in this encounter Care Teams Gimp Buttonhole Machine Operator Relationship Specialty Start Date End Date Johan Palacios MD [address] [place] [address] PCP - General 06/28/16 Johan Palacios MD [address] [place] [address] PCP - General 10/09/15 06/27/16 Irving Wade III, MD [address] [place] [address] Rheumatology 11/01/16 documented as of this encounter
--- OUTSIDE RECORDS SUMMARY | 2024-12-22 08:33 | XMS_ITS | Encounter Summary ---
Author Organization [facility] Address [address] [place] [address] Phone Care Team Providers Care Metal Patternmaker Apprentice Name Role Phone Perez Dempsey MD Primary Care Provider [phone]- [phone] Tesha Sotelo APRN, ROAD CROSSING GUARD Unavailable + [phone] Reason for Visit * Reason Comments Medication Refill Encounter Details Date Type Department Care Team (Late Contact Info) Description 07/23/2023 Refill [facility] [address] [place] [address] Tien Jama APRN, TRIMMER TAILER [address] [place] [address] Medication Refill Social History Tobacco Use Types [...] st Contact Info) Description 02/17/2025 11:00 AM WIRE LOOP MACHINE OPERATOR [facility] - [facility] - [place] [address] [place] [address] Tesha Sotelo APRN, ROAD CROSSING GUARD [address] [place] [address] documented as of this encounter Visit Diagnoses Not on filedocumented in this encounter Care Teams Metal Patternmaker Apprentice Relationship Specialty Start Date End Date Perez Dempsey MD [address] [place] [address] PCP - General Neurological Surgery 05/07/23 Tesha Sotelo APRN, ROAD CROSSING GUARD [address] [place] [address] Nurse Practitioner Advanced Practice Nurse 06/18/23 documented as of this encounter
== END 2024-12-22 08:21 | disposition home or self-care (01) ==
PROVIDERS: PCP Nurse Practitioner; Visit Provider Internal Medicine Cardiovascular Disease
DX: I49.9 Cardiac arrhythmia, unspecified (principal); I73.9 Peripheral vascular disease, unspecified
CPT/HCPCS: 93923

== ENCOUNTER 2025-03-01 11:41 | Outpatient (CLI) | payer MEDICARE, SELFPAY ==
--- NOTE | ~2025-03-01 | XR_ITS ---
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 Findings: No acute fracture or malalignment. Moderate degenerative changes Soft tissues unremarkable. Impression: No acute fracture or malalignment. Reviewed, dictated and finalized at location P. T BINDING WORKER Impression: No acute fracture or malalignment.
== END 2025-03-01 11:42 | disposition home or self-care (01) ==
LOC: MICIMG 11:43
PROVIDERS: PCP Nurse Practitioner; Visit Provider Internal Medicine
DX: M25.511 Pain in right shoulder (principal)
CPT/HCPCS: 73030